=== PATIENT | female | born 1930 | race Caucasian/White ===

== ENCOUNTER → 2016-03-28 | Outpatient (CLI) | payer MEDICARE ==
[~2016-03-28] MED LIST: AMLO10TA PO; AMLO10TA82 PO; ASP325TEC PO; ASP81TEC PO; ATEN-158 PO; ATEN100T88 PO; DCS100C PO; ENXP40I.4 SC; GBPN600T PO; HYDR-623 PO; LOSA1TAB23 PO; MELO-195 PO; METF-380 PO; OXYC10TA8 PO; PHT5T PO
--- NOTE | 2016-03-29 19:02 | Diagnostic Imaging Report ---
Bilateral screening mammogram The current study was also evaluated with a Computer Aided Detection (CAD) system. INDICATION: Screening. No current complaints stated on the questionnaire. COMPARISON: 11/25/14. FINDINGS: The breasts are composed of scattered fibroglandular densities. There are scattered benign-appearing calcifications. Allowing for technique and positional differences, no suspicious change is seen. IMPRESSION: No significant change. ACR BI-RADS Category 2: Benign findings. Result letter will be mailed to the patient. Note: At least 10% of breast cancer is not imaged by mammography. Dictated by: Dictated on workstation # [id number]
== END ==
LOC: RAD 09:41
PROVIDERS: ATTEND Internal Medicine
DX: Z12.31 Encounter for screening mammogram for malignant neoplasm of breast (principal)
CPT/HCPCS: 77067

== ENCOUNTER → 2016-07-11 | Outpatient (CLI) | payer MEDICARE ==
[~2016-07-11] MED LIST changes: +CATHETER FLUSH 10 ML SYR IV PRN
== END ==
LOC: CARD 07:38
PROVIDERS: ATTEND Internal Medicine Cardiovascular Disease
DX: R94.31 Abnormal electrocardiogram [ECG] [EKG] (principal); I10 Essential (primary) hypertension; E78.2 Mixed hyperlipidemia

== ENCOUNTER → 2016-10-03 | Outpatient (CLI) | payer MEDICARE ==
[~2016-10-03] MED LIST changes: +REGADENOSON 0.4 MG/5 ML SYR (LEXISCAN) IV ONE
[2016-10-03 09:57] VITALS: BP 155/75
== END ==
LOC: CARD 08:07
PROVIDERS: ATTEND Internal Medicine Cardiovascular Disease
DX: R94.31 Abnormal electrocardiogram [ECG] [EKG] (principal); I10 Essential (primary) hypertension; E78.2 Mixed hyperlipidemia
CPT/HCPCS: 78452; 93017

== ENCOUNTER 2017-03-31 14:56 | Inpatient (IN) | payer MEDICARE ==
[~2017-03-31] VITALS: Ht 162.6 cm; Wt 75.8 kg
[2017-03-31] VITALS (11 sets, daily range): BP systolic 107–172; BP diastolic 64–104
[~2017-03-31 14:56] MED LIST changes: -CATHETER FLUSH 10 ML SYR IV PRN; -REGADENOSON 0.4 MG/5 ML SYR (LEXISCAN) IV ONE
[2017-03-31] MEDS ORDERED: ASPIRIN 81 MG CHEW (CHILDREN'S ASA) PO STA (15:06)
[2017-03-31] MEDS ORDERED: CLOPIDOGREL 300 MG (PLAVIX) TABLET PO STA (15:06)
--- NOTE | 2017-03-31 15:09 | ED Neurological Problem ---
General Stated Complaint: STROKE SYMPTOMS Source: patient, EMS Exam Limitations: clinical condition History of Present Illness Date Seen by Provider: Mar 31, 2017 Time Seen by Provider: 14:59 Initial Comments Patient presents to ER by EMS with a chief complaint of being found by her grandsons in bed with last known well time of 3-4 days ago. She has profound left sided body weakness and left facial droop. Patient was lying in her own bodily fluids but she is alert, oriented and answering questions appropriately. She denies a history of heart or stroke. She denies blood thinners. EMS reports they try to get an IV in her and could not en route. Vital signs were otherwise okay and blood sugar is 119 in the ER. Allergies and Home Medications Allergies Coded Allergies: Oxycodone (Verified Allergy, Unknown, 09/21/05) simvastatin (Verified Allergy, Unknown, ALLERGIC TO "STATINS", 09/18/05) Penicillins (Unverified Allergy, HIVES, 03/04/12) morphine (Unverified Allergy, HIVES, 03/04/12) sulfamethoxazole (Verified Adverse Reaction, NAUSEA, DIARRHEA, , 04/01/13) trimethoprim (Verified Adverse Reaction, NAUSEA, DIARRHEA, , 04/01/13) Uncoded Allergies: STATINS (Allergy, INCREASED LIVER ENZYMES, 03/04/12) Home Medications Aspirin 325 Mg Tabec, 325 MG PO BID WITH MEALS, #30 Prescribed by: MERCEDES AMOR on 04/09/13 1021 Atenolol 50 Mg Tab, 50 MG PO HS, #30 Prescribed by: MERCEDES AMOR on 04/09/13 1021 Docusate Sodium 100 Mg Capsule, 100 MG PO BID, #30 Prescribed by: MERCEDES AMOR on 04/09/13 1021 Gabapentin 600 Mg Tab, 600 MG PO TID, (Reported) Hydrocodone Bit/Acetaminophen 1 Tab Tablet, 1-2 EACH PO Q4H, #90 Prescribed by: MERCEDES AMOR on 04/09/13 1057 Metformin Hcl 1,000 Mg Tablet, 2 EACH PO HS, (Reported) Constitutional: see HPI (patient's having a difficult time giving a very diverse review of systems or history.), No chills, No diaphoresis Eyes: Denies Blindness, Denies Blurred Vision Ears, Nose, Mouth, Throat: denies ear pain, denies nose pain Respiratory: No cough, No short of breath Cardiovascular: No chest pain, No palpitations Gastrointestinal: No abdominal pain, No constipation, No diarrhea, No nausea Genitourinary: No discharge, No dysuria Past Txracyj-Tvggub-Kqugxk Hx Patient Social History Alcohol Use: Denies Use Immunizations Up To Date Tetanus Booster (TDap): Less than 5yrs Date of Pneumonia Vaccine: Mar 21, 2010 Date of Influenza Vaccine: Dec 20, 2011 Reproductive System Hx Reproductive Disorders: No Endocrine Endocrine Disorders: Diabetes, Non-Insulin dep HEENT HEENT Disorders: Cataract Loss of Vision: Denies Hearing Impairment: Denies Blood Transfusions Adverse Reaction to a Blood Tr: No Family Medical History Family Medial History: Cancer 09 BROTHER Family history: Cardiovascular disease 03 FATHER 03 MOTHER Family history: Diabetes mellitus 03 MOTHER 09 BROTHER Physical Exam Vital Signs Capillary Refill : General Appearance: WD/WN, no apparent distress HEENT: PERRL/EOMI (3 mm bilaterally), TMs normal, other (oral mucosa is dry) Neck: non-tender, full range of motion, supple, normal inspection Respiratory: chest non-tender, lungs clear, normal breath sounds, no respiratory distress, no accessory muscle use Cardiovascular: normal peripheral pulses, no edema, no JVD Peripheral Pulses: 2+ Dorsalis Pedis (R), 2+ Left Dors-Pedis (L), 2+ Radial Pulses (R), 2+ Radial Pulses (L) Gastrointestinal: normal bowel sounds, non tender, soft Neurologic/Psychiatric: oriented x 3, other (left facial droop as well as no motor function on left upper and lower extremities. Sensory intact 4 extremities.) Crainal Nerves: normal hearing, abnormal speech (slurred speech), facial asymmetry, facial droop (left), facial weakness Skin: normal color, warm/dry Stroke Onset of Symptoms Date of Onset of Symptoms: Mar 28, 2017 Onset of Symptoms: No Symptoms onset unknown: Yes NIH Stroke Scale Assessment Select: Initial Level of Consciousness: 0=Alert (0), Level of Consciousness- Questions: 0=Answers both month/age (0), LOC Commands: 0=Performs both tasks (0) , Gaze: Normal (0), Visual [place]: 2=Complete hemianopia (2), Facial Movement ( Facial Paresis): 2=Partial paralysis (2), Motor Function-Arms Right: 0=No drift (0), Motor Function-Arms Left: 4=No movement (4), Motor Function-Legs Right: 0= No drift (0), Motor Function-Legs Left: 4=No movement (4), Limb Ataxia: 2= Present in two limbs (2), Sensory: 0=Normal:no loss (0), Best Language: 1=Mild to moderat aphasia (1), Dysarthria: 1=Mild to moderate loss (1), Extinction & Inattention: 2=ProfoundHemiInattention (2), Total: 18 Stroke Thrombolytic Exclusion Age 18 or Over: Yes Acute intenal hemorrhage: No History of CVA: No Uncontrolled Coagulation Defec: No Intracranial Hemorrhage: No Severe Hypertension: No GI or Bleed: No Subarachnoid Hemorrhage: No Intracranial Neoplasm/Aneurysm: No Oral Anticoagulants: No Surgery or Trauma: No Puncture of Non-Compressible V: No Recent CPR: No Diabetic Hemorrhagic Retinopat: No Organ Biopsy: No Recent Obstetric Delivery: No Glucose: No Significant Hepatic Dysfunctio: No NIH Stoke Scale >22: No Bacterial Endocarditis: No Pericarditis: No Improving Symptoms: No Platelets: No TPA Contraindication: Yes IV - TPa Received IV - TPa Procedure Performed?: No Progress/Results/Core Measures Results/Orders Lab Results Laboratory Tests Test 03/31/17 15:07 03/31/17 15:09 03/31/17 15:19 Range/Units Glucometer 119 H 70-110 MG/DL White Blood Count 8.5 4.3-11.0 10^3/uL Red Blood Count 3.61 L 4.35-5.85 10^6/uL Hemoglobin 9.8 L 11.5-16.0 G/DL Hematocrit 30 L 35-52 % Mean Corpuscular Volume 83 80-99 FL Mean Corpuscular Hemoglobin 27 25-34 PG Mean Corpuscular Hemoglobin Concent 33 32-36 G/DL Red Cell Distribution Width 16.4 H 10.0-14.5 % Platelet Count 322 130-400 10^3/uL Mean Platelet Volume 9.6 7.4-10.4 FL Neutrophils (%) (Auto) 70 42-75 % Lymphocytes (%) (Auto) 20 12-44 % Monocytes (%) (Auto) 10 0-12 % Eosinophils (%) (Auto) 0 0-10 % Basophils (%) (Auto) 1 0-10 % Neutrophils # (Auto) 5.9 1.8-7.8 X 10^3 Lymphocytes # (Auto) 1.7 1.0-4.0 X 10^3 Monocytes # (Auto) 0.8 0.0-1.0 X 10^3 Eosinophils # (Auto) 0.0 0.0-0.3 10^3/uL Basophils # (Auto) 0.0 0.0-0.1 10^3/uL Prothrombin Time 12.9 12.2-14.7 SEC INR Comment 1.0 0.8-1.4 Activated Partial Thromboplast Time 29 24-35 SEC D-Dimer 2.84 H 0.00-0.49 UG/ML Sodium Level 131 L 135-145 MMOL/L Potassium Level 4.9 3.6-5.0 MMOL/L Chloride Level 100 98-107 MMOL/L Carbon Dioxide Level 18 L 21-32 MMOL/L Anion Gap 13 5-14 MMOL/L Blood Urea Nitrogen 16 7-18 MG/DL Creatinine 0.76 0.60-1.30 MG/DL Estimat Glomerular Filtration Rate > 60 BUN/Creatinine Ratio 21 Glucose Level 118 H 70-105 MG/DL Calcium Level 9.4 8.5-10.1 MG/DL Total Bilirubin 0.5 0.1-1.0 MG/DL Aspartate Amino Transf (AST/SGOT) 74 H 5-34 U/L Alanine Aminotransferase (ALT/SGPT) 57 H 0-55 U/L Alkaline Phosphatase 155 H 40-136 U/L Troponin I < 0.30 <0.30 NG/ML Total Protein 9.3 H 6.4-8.2 GM/DL Albumin 3.4 3.2-4.5 GM/DL Urine Color YELLOW Urine Clarity CLEAR Urine pH 7 5-9 Urine Specific [place] 1.010 L 1.016-1.022 Urine Protein 2+ H NEGATIVE Urine Glucose (UA) NEGATIVE NEGATIVE Urine Ketones 3+ H NEGATIVE Urine Nitrite NEGATIVE NEGATIVE Urine Bilirubin NEGATIVE NEGATIVE Urine Urobilinogen NORMAL NORMAL MG/DL Urine Leukocyte Esterase 1+ H NEGATIVE Urine RBC (Auto) 1+ H NEGATIVE Urine RBC 2-5 H /HPF Urine WBC 2-5 /HPF Urine Squamous Epithelial Cells 10-25 H /HPF Urine Crystals NONE /LPF Urine Bacteria NEGATIVE /HPF Urine Casts NONE /LPF Urine Mucus NEGATIVE /LPF Urine Culture Indicated NO My Orders Orders - OSCAR TRUJILLO Cbc With Automated Diff (03/31/17 15:06) Protime With Inr (03/31/17 15:06) Partial Thromboplastin Time (03/31/17 15:06) Comprehensive Metabolic Panel (03/31/17 15:06) Fibrin Degradation Products (03/31/17 15:06) Troponin I (03/31/17 15:06) Ua Culture If Indicated (03/31/17 15:06) Chest 1 View, Ap/Pa Only (03/31/17 15:06) Catheter(Urinary) Insert & Ass 03,15 (03/31/17 15:06) Ekg Tracing (03/31/17 15:06) Nothing By Mouth (03/31/17 Dinner) Accucheck Stat ONCE (03/31/17 15:06) Saline Lock/Iv-Start (03/31/17 15:06) Saline Lock/Iv-Start (03/31/17 15:06) Vital Signs - Stroke Q15M (03/31/17 15:06) Ct Head Wo-R/O Stroke (03/31/17 15:06) O2 (03/31/17 15:06) Intake & Output 06,14,22 (03/31/17 15:06) Aspirin Chewable Tablet (Baby Aspirin Ch (03/31/17 15:06) Clopidogrel Tablet (Plavix Tablet) (03/31/17 15:06) Monitor-Rhythm Ecg Trace Only (03/31/17 15:06) Dysphagia Screening Tool (03/31/17 15:06) Progress Note : Time: 15:27 Progress Note Stroke outside the window for TPA. ECG Initial ECG Impression Date: Mar 31, 2017 Initial ECG Impression Time: 15:10 Initial ECG Rate: 83 Initial ECG Rhythm: Normal Sinus Initial ECG Intervals: Normal Initial ECG Impression: Normal, Nonspecific Changes Initial ECG Comparisson: No Previous ECG Available Comment No T-wave elevation or depression. Diagnostic Imaging Diagonstic Imaging: CT Plain Films/CT/US/NM/MRI: head Comments VIA [facility]. [place], [place] NAME: LATANYA MILLARD Demetrius MED REC#: [id number] PT STATUS: REG ER : 1930 PHYSICIAN: OSCAR TRUJILLO MD ADMIT DATE: 03/31/17/ER Draft Date of Exam:03/31/17 CT HEAD WO-R/O STROKE EXAM: CT HEAD WO-R/O STROKE INDICATION: Stroke. Left-sided weakness. COMPARISON: None. FINDINGS: Low-attenuation in the right thalamus and midbrain. No intracranial hemorrhage. No hydrocephalus or extra-axial fluid collections. Osseous structures are intact. The visualized paranasal sinuses and mastoids are clear. IMPRESSION: Low-attenuation in the right thalamus and midbrain suspicious for an acute or subacute infarct. No intracranial hemorrhage. Findings discussed with ARA Dumas at 4:15 PM on 03/31/2017. Dictated on workstation # [id number] Dict: 03/31/17 1609 Trans: 03/31/171615 [id number] Interpreted by: MARCIAL PATEL MD Electronically signed by: Reviewed: Reviewed by Me Diagonstic Imaging: Xray Plain Films/CT/US/NM/MRI: chest (1v) Comments NAME: LATANYA MILLARD MED REC#: [id number] PT STATUS: REG ER : 1930 PHYSICIAN: OSCAR TRUJILLO MD ADMIT DATE: 03/31/17/ER Draft Date of Exam:03/31/17 CHEST 1 VIEW, AP/PA ONLY EXAM: CHEST 1 VIEW, AP/PA ONLY INDICATION: Left-sided weakness. COMPARISON: Chest radiograph 07/09/2013. FINDINGS: Normal heart size and pulmonary vascularity. No dense consolidation, pleural effusion or pneumothorax. Calcified aorta. No acute osseous findings. IMPRESSION: No acute cardiopulmonary findings. Dictated on workstation # [id number] Dict: 03/31/17 1615 Trans: 03/31/17 1617 [id number] Interpreted by: MARCIAL PATEL MD Electronically signed by: Reviewed: Reviewed by Me Consults Consults : Consults Notes [facility] neurology: Outside TPA window. Watch for evidence of swelling or midline shift. Departure Communication (Admissions) Time/Spoke to Admitting Phy: 16:40 Communication Discussed case lab imaging findings with Dr. Alba as well as neurology's recommendations. Impression Impression: Primary Impression: CVA (cerebral vascular accident) Qualified Codes: I63.9 - Cerebral infarction, unspecified Disposition: ADMITTED INPATIENT Condition: Stable Admissions Decision to Admit Reason: Admit from ER (General) Decision to Admit/Date: Mar 31, 2017 Time/Decision to Admit Time: 16:33 Departure-Patient Inst. Referrals: JANETT GU MD (PCP/Family) Primary Care Physician Copy Copies To 1: JANETT GU MD, TITUS J Mar 31, 2017 15:09
[2017-03-31 15:16] LABS: BASOPHILS % (AUTO) 1 % (0-10); EOSINOPHILS % (AUTO) 0 % (0-10); HEMATOCRIT 30 % (35-52); HEMOGLOBIN 9.8 G/DL (11.5-16.0); LYMPHOCYTES # (AUTO) 1.7 X 10^3 (1.0-4.0); LYMPHOCYTES % (AUTO) 20 % (12-44); MEAN CORPUSCULAR HEMOGLOBIN 27 PG (25-34); MEAN CORPUSCULAR HGB CONC 33 G/DL (32-36); MEAN CORPUSCULAR VOLUME 83 FL (80-99); MEAN PLATELET VOLUME 9.6 FL (7.4-10.4); MONOCYTES # (AUTO) 0.8 X 10^3 (0.0-1.0); MONOCYTES % (AUTO) 10 % (0-12); NEUTROPHILS # (AUTO) 5.9 X 10^3 (1.8-7.8); NEUTROPHILS % (AUTO) 70 % (42-75); PLATELET COUNT 322 10^3/uL (130-400); RED BLOOD COUNT 3.61 10^6/uL (4.35-5.85); RED CELL DISTRIBUTION WIDTH 16.4 % (10.0-14.5); WHITE BLOOD COUNT 8.5 10^3/uL (4.3-11.0)
[2017-03-31 15:26] LABS: BILIRUBIN,URINE NEGATIVE (NEGATIVE); CLARITY,URINE CLEAR; COLOR,URINE YELLOW; GLUCOSE, URINE (UA) NEGATIVE (NEGATIVE); KETONES,URINE 3+ (NEGATIVE); LEUKOCYTE ESTERASE ,URINE 1+ (NEGATIVE); NITRITE,URINE NEGATIVE (NEGATIVE); PH,URINE 7 (5-9); PROTEIN,URINE 2+ (NEGATIVE); UROBILINOGEN,URINE NORMAL (NORMAL)
[2017-03-31 15:26] LABS: PROTHROMBIN TIME PATIENT 12.9 SEC (12.2-14.7)
[2017-03-31 15:29] LABS: FIBRIN DEGRADATION PRODUCTS 2.84 UG/ML (0.00-0.49)
[2017-03-31 15:33] LABS: BACTERIA,URINE NEGATIVE /HPF
[2017-03-31 15:36] LABS: ALANINE AMINOTRANSFERASE 57 U/L (0-55); ALBUMIN 3.4 GM/DL (3.2-4.5); ALKALINE PHOSPHATASE 155 U/L (40-136); BILIRUBIN,TOTAL 0.5 MG/DL (0.1-1.0); BUN/CREATININE RATIO 21; CALCIUM 9.4 MG/DL (8.5-10.1); CARBON DIOXIDE 18 MMOL/L (21-32); CHLORIDE 100 MMOL/L (98-107); CREATININE SERUM 0.76 MG/DL (0.60-1.30); GFR ESTIMATED > 60; GLUCOSE 118 MG/DL (70-105); POTASSIUM 4.9 MMOL/L (3.6-5.0); SODIUM 131 MMOL/L (135-145); TOTAL PROTEIN 9.3 GM/DL (6.4-8.2)
--- NOTE | 2017-03-31 16:17 | Diagnostic Imaging Report ---
EXAM: CT HEAD WO-R/O STROKE INDICATION: Stroke. Left-sided weakness. COMPARISON: None. FINDINGS: Low-attenuation in the right thalamus and midbrain. No intracranial hemorrhage. No hydrocephalus or extra-axial fluid collections. Osseous structures are intact. The visualized paranasal sinuses and mastoids are clear. IMPRESSION: Low-attenuation in the right thalamus and midbrain suspicious for an acute or subacute infarct. No intracranial hemorrhage. Findings discussed with ARA Dumas at 4:15 PM on 03/31/2017. Dictated by: Dictated on workstation # [id number]
--- NOTE | 2017-03-31 16:18 | Diagnostic Imaging Report ---
EXAM: CHEST 1 VIEW, AP/PA ONLY INDICATION: Left-sided weakness. COMPARISON: Chest radiograph 07/09/2013. FINDINGS: Normal heart size and pulmonary vascularity. No dense consolidation, pleural effusion or pneumothorax. Calcified aorta. No acute osseous findings. IMPRESSION: No acute cardiopulmonary findings. Dictated by: Dictated on workstation # [id number]
[2017-03-31] MEDS ORDERED: LACTATED RINGERS 1,000 ML IV ONE (16:42)
[2017-03-31] MEDS: LACTATED RINGERS 1,000 ML IV SCH (17:42)
[2017-03-31] MEDS ORDERED: 1/2 NS W/KCL 20 MEQ/L 1,000 ML IV ONE (20:46)
[2017-03-31] MEDS ORDERED: ACETAMINOPHEN 500 MG TAB (TYLENOL) PO PRN (21:30)
[2017-03-31] MEDS ORDERED: ONDANSETRON 4 MG/2 ML (SDV) Z0FRAN IV PRN (21:30)
[2017-03-31] MEDS: 1/2 NS W/KCL 20 MEQ/L 1,000 ML IV SCH (22:20)
[2017-04-01] VITALS (29 sets, daily range): BP systolic 139–174; BP diastolic 65–86
[2017-04-01] MEDS: 1/2 NS W/KCL 20 MEQ/L 1,000 ML IV SCH ×2 (03:21→10:14)
--- NOTE | 2017-04-01 04:48 | Pulmonary Consultation ---
History of Present Illness History of Present Illness Date of Consultation 04/01/17 04:43 Time Seen by Provider: 04:43 Date of Admission History of Present Illness 86yo presented via EMS after being found in her bed in her own bodily fluids. pt was alert and answering questions. Her last known well time was 3-4 days ago. She was found to have weakness and left facial droop. Allergies and Home Medications Allergies Coded Allergies: Penicillins (Unverified Allergy, Unknown, HIVES, 03/31/17) morphine (Unverified Allergy, Unknown, HIVES, 03/31/17) oxycodone (Verified Allergy, Unknown, 09/21/05) simvastatin (Verified Allergy, Unknown, ALLERGIC TO "STATINS", 09/18/05) sulfamethoxazole (Verified Adverse Reaction, Unknown, NAUSEA, DIARRHEA, , 03/31/17) trimethoprim (Verified Adverse Reaction, Unknown, NAUSEA, DIARRHEA, , 03/31) Uncoded Allergies: STATINS (Allergy, Unknown, INCREASED LIVER ENZYMES, 03/31/17) Home Medications Amlodipine Besylate 10 Mg Tablet, 10 MG PO DAILY, (Reported) Aspirin 81 Mg Tablet.dr, 81 MG PO DAILY, (Reported) Gabapentin 300 Mg Capsule, 600 MG PO BID, (Reported) TAKES 2 (300MG) CAPSULES Losartan Potassium 100 Mg Tablet, 100 MG PO DAILY, (Reported) Meloxicam 15 Mg Tablet, 15 MG PO DAILY, (Reported) Metformin HCl 1,000 Mg Tablet, 1,000 MG PO DAILY, (Reported) Nebivolol HCl 5 Mg Tablet, 5 MG PO HS, (Reported) Polyethylene Glycol 3350 17 Gm Powd.pack, 17 GM PO DAILY PRN for CONSTIPATION- 2ND LINE, (Reported) Past Cidpsxq-Wdydry-Vbdiru Hx Patient Social History Alcohol Use: Denies Use Recreational Drug Use: No Smoking Status: Former Smoker Type Used: Cigarettes Former Smoker, Quit: Apr 01, 1976 Recent Foreign Travel: No Contact w/Someone Who Travel: No Recent Infectious Disease Expo: No Recent Hopitalizations: Yes (BACK SURG) Immunizations Up To Date Tetanus Booster (TDap): Less than 5yrs Date of Influenza Vaccine: Dec 20, 2011 Seasonal Allergies Seasonal Allergies: No Surgeries History of Surgeries: Yes (CATARACTS, CARPAL TUNNEL, BACK SURG X2, FX ANKLE) Respiratory History of Respiratory Disorde: No Cardiovascular History of Cardiac Disorders: Yes Neurological History of Neurological Disord: Yes Reproductive System : No Hx Reproductive Disorders: No Genitourinary History of Genitourinary Disor: No Gastrointestinal History of Gastrointestinal Di: No Musculoskeletal History of Musculoskeletal Dis: Yes (ARTHRITIS, SPINAL STENOSIS, FAILED LEFT KNEE REPLACEMENT) Endocrine History of Endocrine Disorders: Yes Endocrine Disorders: Diabetes, Non-Insulin dep HEENT History of HEENT Disorders: Yes HEENT Disorders: Cataract Loss of Vision: Denies Hearing Impairment: Denies Cancer History of Cancer: No Psychosocial History of Psychiatric Problem: No Integumentary History of Skin or Integumenta: No Blood Transfusions History of Blood Disorders: No Adverse Reaction to a Blood Tr: No Family Medical History Family Medial History: Cancer 09 BROTHER Family history: Cardiovascular disease 03 FATHER 03 MOTHER Family history: Diabetes mellitus 03 MOTHER 09 BROTHER Review of Systems Time Seen by Provider: 08:27 Constitutional: Sweats, Weakness, Malaise ENT: Nose discharge, Nose congestion, No: Ear pain, Ear discharge, Nose pain, Mouth pain, Mouth swelling, Throat pain, Throat swelling, Other Respiratory: Cough, Shortness of breath, SOB with excertion, Wheezing, Sputum Cardiovascular: Chest Pain, Palpitations, Paroxysmal Noc. Dyspnea, Lt Headedness Gastrointestinal: No: Nausea, Vomiting, Abdominal Pain, Diarrhea, Constipation , Melena, Hematochezia, Other Neurological: Weakness, Incoordination Exam Exam Vital Signs Date Time Temp Pulse Resp B/P (MAP) Pulse Ox O2 Delivery O2 Flow Rate FiO2 04/01/17 03:00 90 21 174/74 (107) 98 Room Air 04/01/17 02:00 85 24 165/82 (109) 99 Room Air 04/01/17 01:00 86 23 164/65 (98) 97 Room Air 04/01/17 01:00 86 04/01/17 00:00 97 Room Air 04/01/17 00:00 100 22 153/68 (96) 97 Room Air 03/31/17 23:00 91 22 138/64 (88) 97 Room Air 03/31/17 22:00 101 24 136/85 (102) 97 Room Air 03/31/17 21:00 87 22 169/86 (113) 97 Room Air 03/31/17 20:30 80 17 167/77 (107) 97 Room Air 03/31/17 20:15 80 15 172/75 (107) 97 Room Air 03/31/17 20:00 89 15 154/72 (99) 98 Room Air 03/31/17 19:53 92 03/31/17 19:53 98.0 92 27 153/104 (120) 98 Room Air 03/31/17 19:45 97 Room Air 03/31/17 19:36 98.0 87 22 98 Nasal Cannula 2.00 03/31/17 18:43 74 18 162/80 (107) 99 Nasal Cannula 2.00 03/31/17 18:00 84 18 169/ 95 Nasal Cannula 2.00 03/31/17 17:27 83 18 159/88 (111) 96 Nasal Cannula 2.00 03/31/17 16:31 76 18 107/74 (85) 99 Nasal Cannula 2.00 03/31/17 14:56 Room Air 2.00 03/31/17 14:56 97.8 90 18 152/77 (102) 98 I & O 04/01/17 07:00 Intake Total 2000 ml Output Total 575 ml Balance 1425 ml General Appearance: Anxious, Mild Distress HEENT: Moist Mucous Membranes Neck: Full Range of Motion, Normal Inspection, Non Tender Respiratory: Chest Non Tender, No Accessory Muscle Use, No Respiratory Distress , Decreased Breath Sounds Cardiovascular: Regular Rate, Rhythm, No Edema Capillary Refill: Less Than 3 Seconds Peripheral Pulses: 2+ Dorsalis Pedis (R), 2+ Left Dors-Pedis (L), 2+ Radial Pulses (R), 2+ Radial Pulses (L) Gastrointestinal: normal bowel sounds, non tender, soft Extremity: Normal Capillary Refill Neurologic/Psychiatric: Alert, Oriented x3 Skin: Normal Color, Warm/Dry Lymphatic: No Adenopathy Results Lab Laboratory Tests 03/31/17 15:09 Assessment/Plan Assessment/Plan Acute CVA -Hold plavix -Check Echo and carotid dopplers -Pt failed swallow eval -NPO - start Protonix IV for PPX Acute lower GIB -Consult surgery -H&H Q6 -Monitor close -IVF Hyponatremia -Change IVF to NS Debility -PT/OT -pt was living alone she will probably need ECF upon discharge. Labs still pending 255 Clinical Quality Measures DVT/VTE Risk/Contraindication: Risk Factor Score Per Nursin RFS Level Per Nursing on Admit: 4+=Very High Stroke: Date of last known well: Mar 28, 2017 Symptoms onset unknown: Yes DONATO SHEPARD DO Apr 01, 2017 04:48
[2017-04-01] MEDS ORDERED: NS IV 1000 ML 1,000 ML ONE (04:53)
[2017-04-01 05:36] LABS: BASOPHILS % (AUTO) 0 % (0-10); EOSINOPHILS % (AUTO) 0 % (0-10); HEMATOCRIT 21 % (35-52); LYMPHOCYTES # (AUTO) 2.1 X 10^3 (1.0-4.0); LYMPHOCYTES % (AUTO) 19 % (12-44); MEAN CORPUSCULAR HEMOGLOBIN 27 PG (25-34); MEAN CORPUSCULAR HGB CONC 32 G/DL (32-36); MEAN CORPUSCULAR VOLUME 84 FL (80-99); MEAN PLATELET VOLUME 9.9 FL (7.4-10.4); MONOCYTES % (AUTO) 9 % (0-12); NEUTROPHILS % (AUTO) 72 % (42-75); PLATELET COUNT 349 10^3/uL (130-400); RED CELL DISTRIBUTION WIDTH 16.1 % (10.0-14.5); WHITE BLOOD COUNT 11.1 10^3/uL (4.3-11.0)
[2017-04-01 05:39] LABS: HEMOGLOBIN 6.7 G/DL (11.5-16.0)
[2017-04-01 05:57] LABS: BUN/CREATININE RATIO 53; CALCIUM 8.5 MG/DL (8.5-10.1); CARBON DIOXIDE 18 MMOL/L (21-32); CHLORIDE 105 MMOL/L (98-107); CHOLESTEROL 201 MG/DL (< 200); CREATININE SERUM 0.74 MG/DL (0.60-1.30); GFR ESTIMATED > 60; GLUCOSE 133 MG/DL (70-105); HDL CHOLESTEROL 34 MG/DL (40-60); MAGNESIUM 1.5 MG/DL (1.8-2.4); PHOSPHORUS 2.6 MG/DL (2.3-4.7); POTASSIUM 4.8 MMOL/L (3.6-5.0); SODIUM 132 MMOL/L (135-145); TRIGLYCERIDES 138 MG/DL (<150); VLDL CHOLESTEROL 28 MG/DL (5-40)
[2017-04-01] MEDS: KCL 20 MEQ TAB (K-DUR) PO SCH (06:06)
[2017-04-01] MEDS: POTASSIUM CL 10MEQ/50ML IVPB 50 ML IV SCH (06:06)
[2017-04-01] MEDS: MAGNESIUM 1 GM/100 ML IVPB 100 ML IV SCH ×3 (06:07→06:19)
[2017-04-01] MEDS: NS IV 1000 ML 1,000 ML IV SCH ×3 (06:14→22:29)
--- NOTE | 2017-04-01 07:35 | Diagnostic Imaging Report ---
INDICATION: Cerebrovascular accident. COMPARISON: 03/31/2017. FINDINGS: Single frontal view of the chest demonstrates normal heart size and pulmonary vascularity. The lungs are well aerated and clear. No large pleural effusion or pneumothorax is seen. The visualized osseous structures show no acute abnormalities. There is calcified aortic atherosclerosis. IMPRESSION: 1. No acute cardiopulmonary process. Dictated by: Dictated on workstation # [id number]
[2017-04-01] MEDS ORDERED: AMLO10TA2 PO (07:52)
[2017-04-01] MEDS ORDERED: GABA-488 PO (07:52)
[2017-04-01] MEDS ORDERED: NEBI5TAB8 PO (07:52)
[2017-04-01] MEDS ORDERED: MELO15TA39 PO (07:52)
[2017-04-01] MEDS ORDERED: LOSA100T28 PO (07:52)
[2017-04-01] MEDS ORDERED: NS IV 500 ML 500 ML ONE (08:18)
[2017-04-01] MEDS ORDERED: POLY17PO6 PO (08:23)
[2017-04-01] MEDS ORDERED: METF1000 PO (08:23)
[2017-04-01] MEDS ORDERED: ASPI-983 PO (08:23)
[2017-04-01] MEDS ORDERED: ASPIRIN 325 MG (5 GR) TABLET PO SCH (09:00)
[2017-04-01] MEDS: PANTOPRAZOLE 40 MG/10 ML (PROTONIX) VIAL IV SCH (10:08)
--- NOTE | 2017-04-01 10:14 | ST Dysphagia Evaluation ---
Speech Evaluation-General Medical Diagnosis R Thalamus and Midbrain CVA Onset Date: Mar 31, 2017 Therapy Diagnosis Therapy Diagnosis: Moderate Oropharyngeal Dysphagia Precautions Precautions: Aspiration Precautions/Isolations: Standard Precautions Referral Referring Physician: Dr. Cate Maravilla Reason for Referral: Evaluation/Treatment Clinical Bedside Swallowing Evaluation Medical History Pertinent Medical History: DM Current History The patient presented to the ER on 03/31/17 with slurring of her speech and a left facial droop. CT Head (04/01/17) revealed low attenuation in the right thalamus and midbrain suspicious for acute or subacute infarct. CXR (04/01): No acute cardiopulmonary process. Reviewed History: Yes Speech PLF/Current-Dysphagia Prior Level of Function The patient was unable to provide prior level of function information to the clinician. Subjective The patient was seated upright in bed, positioned by the clinician prior to bolus trials. The patient intermittently made eye contact, however, demonstrated mostly right gaze. Prior to bolus trials, the patient's SpO2% fluctuated between 93% and 95%. Per patient's RN, the patient appears fatigue secondary to being restless through a majority of the evening. Cognitive Status The patient was unable to state orientation information to the clinician. The patient did make eye contact when her name was spoken. Oral Motor Skills Dentition: Edentalous Ability to Follow Directions: Fair The patient is currently NPO pending the results of the swallowing evaluation. Oral Expression Ability: Severe Impairment Face Facial Symmetry: Asymmetrical (Left Facial Droop) Oral-Facial Assessment Oral-Facial Dentition: Normal Labial Seal Description: Droops Left Smile: Droops Left Puff Cheeks: Reduced Strength (Left) Lingual Protrusion: Abnormal (Limited lingual protrusion.) Lingual ROM: Abnormal (Moderately reduced lateral range of motion was demonstrated.) Lingual Strength: Abnormal (Moderately reduced lingual strength was noted bilaterally.) Pharynx Velopharyngeal Move.: Due to limited jaw opening, the clinician was unable to view the patient's velar range of motion or symmetry. Volitional Dry Swallow: No Voluntary Cough: No Dysphagia Evaluation Consistencies Presented: Thin Liquid, [place] Thick Liquid, Pureed Oral Phase: Anterior Spillage (Mild anterior spillage was noted on the right with teaspoon trials of thin liquid.), Left Pocketing (While left pocketing was not observed during the evaluation, the patient is at high risk for this behavior due to reduced left facial sensation.), Unable to Suck Straw (At the initiation of the session, the patient was unable to suck throughout a straw, blowing bubbles into the water when presented. At the close of the session, the patient was able to draw liquids through the straw.) Pharyngeal Phase: Multiple Swallow Attempts, Delayed Swallow - The patient required consistent oral prompting for initiation of a pharyngeal swallow response with all consistencies tested. Funct. Velo/Pharyngeal Symptom: Cough After Swallow - The patient took a fair amount of verbal encouragement and prompting to participate in the swallow evaluation. The patient's SpO2% remained stable throughout the assessment. - Thin Liquid (via teaspoon): The patient demonstrated a delayed cough following three of three teaspoon trials of thin liquid. - [place]-Thick Liquid (via teaspoon and straw): No signs/symptoms of aspiration were demonstrated with multiple teaspoon trials of nectar-thick liquid via teaspoon or straw sip. - Puree: No signs/symptoms of aspiration were demonstrated with multiple teaspoon trials of puree consistency. Throughout all trials, the patient required verbal encouragement to initiate a swallow response. While no left pocketing was noted throughout the assessment, the patient remains at a high risk for this behavior due to her reduced left facial sensation. Due to the verbal prompts intermittently required to elicit a swallow, the patient's reduced ability to use her left upper body, and her risk for pocketing- 1:1 feeding assistance is recommended. Dietary Recommendations: Pureed Liquid Recommendations: [place] Consistancy Crush medication and place in puree for administration. Swallowing Precautions: Decreased Bolus 1/4 Tsp, Oral Supervision Staff, Oral Supervision Caregiver, Pocketing, Small Bites and Sips, Sitting 90 Degrees 30 Post Intake Speech Short Term Goals Short Term Goals Short Term Goals 1. The patient will tolerate trials of the least restrictive diet without signs/ symptoms of aspiration or laryngeal penetration. 2. The patient will demonstrate swallowing strategies with 80% accuracy with moderate clinician verbal prompting. Time Frame-STG: Four Days Speech Resident Care Technician Goals Resident Care Technician Goals 1. The patient will tolerate the least restrictive diet without signs/symptoms of aspiration or laryngeal penetration. Time Frame: One Week Speech-Plan Treatment Plan Speech Therapy Treatment Plan: Continue Plan of Care Continue skilled speech pathology to target swallowing safety and consistent use of swallowing strategies Treatment Duration: Apr 08, 2017 Frequency: 3 times per week Estimated Hrs Per Day: .25 hour per day Rehab Potential: Guarded Safety Risks/Education Teaching Recipient: Patient, Family (Patient's son.) Teaching Methods: Handout (Written on in-room white board.), Discussion Response to Teaching: Verbalize Understanding (Son and RN) Education Topics Provided: Swallowing Strategies, Consistency Recommendations, Plan of Care Time Speech Therapy Time In: 08:15 Speech Therapy Time Out: 08:45 Total Billed Time: 30 Billed Treatment Time 1, MARIA ELENA BLACK Apr 01, 2017 10:14
[2017-04-01] MEDS: LACTATED RINGERS 1,000 ML IV SCH (10:15)
--- NOTE | 2017-04-01 14:13 | Consultation ---
History of Present Illness History of Present Illness Patient Consulted On(dejon/time) 04/01/17 13:55 Time Seen by Provider: 13:11 History of Present Illness Surgery asked to consult regarding GI bleed. HPI: Pt was found lying in bed at home in her own body fluids, obvious signs of stroke; unknown time of stroke. Pt is self suficienct at home and last time someone actually checked in on her was 3-4 days prior to finding her on Saturday. Events of last night; pt had large amount of maroon and melanotic stool with clots (according to nurse). When talked to today pt seems able to answer questions but does not really remember what happened. She denies hx of colonoscopy and denies any previous episodes of bleeding. Pt denies abd pain at this time. Allergies and Home Medications Allergies Coded Allergies: Penicillins (Unverified Allergy, Unknown, HIVES, 03/31/17) morphine (Unverified Allergy, Unknown, HIVES, 03/31/17) oxycodone (Verified Allergy, Unknown, 09/21/05) simvastatin (Verified Allergy, Unknown, ALLERGIC TO "STATINS", 09/18/05) sulfamethoxazole (Verified Adverse Reaction, Unknown, NAUSEA, DIARRHEA, , 03/31/17) trimethoprim (Verified Adverse Reaction, Unknown, NAUSEA, DIARRHEA, , 03/31) Uncoded Allergies: STATINS (Allergy, Unknown, INCREASED LIVER ENZYMES, 03/31/17) Home Medications Amlodipine Besylate 10 Mg Tablet, 10 MG PO DAILY, (Reported) Aspirin 81 Mg Tablet.dr, 81 MG PO DAILY, (Reported) Gabapentin 300 Mg Capsule, 600 MG PO BID, (Reported) TAKES 2 (300MG) CAPSULES Losartan Potassium 100 Mg Tablet, 100 MG PO DAILY, (Reported) Meloxicam 15 Mg Tablet, 15 MG PO DAILY, (Reported) Metformin HCl 1,000 Mg Tablet, 1,000 MG PO DAILY, (Reported) Nebivolol HCl 5 Mg Tablet, 5 MG PO HS, (Reported) Polyethylene Glycol 3350 17 Gm Powd.pack, 17 GM PO DAILY PRN for CONSTIPATION- 2ND LINE, (Reported) Past Iioixgr-[id number]-Uthfsz Hx Patient Social History Alcohol Use: Denies Use Recreational Drug Use: No Smoking Status: Former Smoker Former Smoker, Quit: Apr 01, 1976 Type Used: Cigarettes Recent Foreign Travel: No Contact w/Someone Who Travel: No Recent Infectious Disease Expo: No Recent Hopitalizations: Yes (BACK SURG) Physical Abuse Screen: No Sexual Abuse: No Immunizations Up To Date Tetanus Booster (TDap): Less than 5yrs Date of Influenza Vaccine: Dec 20, 2011 Seasonal Allergies Seasonal Allergies: No Surgeries History of Surgeries: Yes (CATARACTS, CARPAL TUNNEL, BACK SURG X2, FX ANKLE) Respiratory History of Respiratory Disorde: No Cardiovascular History of Cardiac Disorders: Yes Neurological History of Neurological Disord: Yes Reproductive System : No Hx Reproductive Disorders: No Genitourinary History of Genitourinary Disor: No Gastrointestinal History of Gastrointestinal Di: No Musculoskeletal History of Musculoskeletal Dis: Yes (ARTHRITIS, SPINAL STENOSIS, FAILED LEFT KNEE REPLACEMENT) Endocrine History of Endocrine Disorders: Yes Endocrine Disorders: Diabetes, Non-Insulin dep HEENT History of HEENT Disorders: Yes HEENT Disorders: Cataract Loss of Vision: Denies Hearing Impairment: Denies Cancer History of Cancer: No Psychosocial History of Psychiatric Problem: No Integumentary History of Skin or Integumenta: No Blood Transfusions History of Blood Disorders: No Adverse Reaction to a Blood Tr: No Family Medical History Significant Family History: Cancer, CAD Over 55 Years Old Family Medial History: Cancer 09 BROTHER Family history: Cardiovascular disease 03 FATHER 03 MOTHER Family history: Diabetes mellitus 03 MOTHER 09 BROTHER Review of Systems-General ROS-Unable to Obtain: Pt doesn't remember, not really answering questions Physical Exam-General Problems Physical Exam Vital Signs Vital Signs - First Documented 03/31/17 14:56 Temp 97.8 Pulse 90 Resp 18 B/P (MAP) 152/77 (102) Pulse Ox 98 O2 Delivery Room Air O2 Flow Rate 2.00 Capillary Refill : Less Than 3 Seconds General Appearance: WD/WN, no apparent distress Eyes: Bilateral Eye PERRL, Bilateral Eye EOMI HEENT: No scleral icterus (R), No scleral icterus (L), pale conjunctivae (R), pale conjunctivae (L) Neck: non-tender, supple, No thyromegaly Respiratory: chest non-tender, lungs clear, normal breath sounds, no respiratory distress, no accessory muscle use Cardiovascular: regular rate, rhythm, no edema, no murmur Gastrointestinal: normal bowel sounds, non tender, soft, no organomegaly, no pulsatile mass Genital/Rectal: heme positive stool Back: no CVA tenderness, no vertebral tenderness Extremities: no calf tenderness, normal capillary refill, other (pt cannot move left side of her body) Neurologic/Psychiatric: alert, oriented x 3, facial droop, motor weakness Skin: normal color, warm/dry Lymphatic: no adenopathy (neck, axilla or groin) Data Review Labs Laboratory Tests 03/31/17 15:07: Glucometer 119H 03/31/17 15:09: White Blood Count 8.5, Red Blood Count 3.61L, Hemoglobin 9.8L, Hematocrit 30L, Mean Corpuscular Volume 83, Mean Corpuscular Hemoglobin 27, Mean Corpuscular Hemoglobin Concent 33, Red Cell Distribution Width 16.4H, Platelet Count 322, Mean Platelet Volume 9.6, Neutrophils (%) (Auto) 70, Lymphocytes (%) (Auto) 20, Monocytes (%) (Auto) 10, Eosinophils (%) (Auto) 0, Basophils (%) (Auto) 1, Neutrophils # (Auto) 5.9, Lymphocytes # (Auto) 1.7, Monocytes # (Auto) 0.8, Eosinophils # (Auto) 0.0, Basophils # (Auto) 0.0, Prothrombin Time 12.9, INR Comment 1.0, Activated Partial Thromboplast Time 29, D-Dimer 2.84H, Sodium Level 131L, Potassium Level 4.9, Chloride Level 100, Carbon Dioxide Level 18L, Anion Gap 13, Blood Urea Nitrogen 16, Creatinine 0.76, Estimat Glomerular Filtration Rate > 60, BUN/Creatinine Ratio 21, Glucose Level 118H, Calcium Level 9.4, Total Bilirubin 0.5, Aspartate Amino Transf (AST/SGOT) 74H, Alanine Aminotransferase (ALT/SGPT) 57H, Alkaline Phosphatase 155H, Troponin I < 0.30, Total Protein 9.3H, Albumin 3.4 03/31/17 15:19: Urine Color YELLOW, Urine Clarity CLEAR, Urine pH 7, Urine Specific Minter 1.010L, Urine Protein 2+H, Urine Glucose (UA) NEGATIVE, Urine Ketones 3+H, Urine Nitrite NEGATIVE, Urine Bilirubin NEGATIVE, Urine Urobilinogen NORMAL, Urine Leukocyte Esterase 1+H, Urine RBC (Auto) 1+H, Urine RBC 2-5H, Urine WBC 2- 5, Urine Squamous Epithelial Cells 10-25H, Urine Crystals NONE, Urine Bacteria NEGATIVE, Urine Casts NONE, Urine Mucus NEGATIVE, Urine Culture Indicated NO 04/01/17 05:16: White Blood Count 11.1H, Red Blood Count 2.50L, Hemoglobin 6.7#*L, Hematocrit 21L, Mean Corpuscular Volume 84, Mean Corpuscular Hemoglobin 27, Mean Corpuscular Hemoglobin Concent 32, Red Cell Distribution Width 16.1H, Platelet Count 349, Mean Platelet Volume 9.9, Neutrophils (%) (Auto) 72, Lymphocytes (%) (Auto) 19, Monocytes (%) (Auto) 9, Eosinophils (%) (Auto) 0, Basophils (%) (Auto ) 0, Neutrophils # (Auto) 8.0H, Lymphocytes # (Auto) 2.1, Monocytes # (Auto) 1.0 , Eosinophils # (Auto) 0.0, Basophils # (Auto) 0.0, Sodium Level 132L, Potassium Level 4.8, Chloride Level 105, Carbon Dioxide Level 18L, Anion Gap 9, Blood Urea Nitrogen 39H, Creatinine 0.74, Estimat Glomerular Filtration Rate > 60, BUN/Creatinine Ratio 53, Glucose Level 133H, Calcium Level 8.5, Phosphorus Level 2.6, Magnesium Level 1.5L, Triglycerides Level 138, Cholesterol Level 201H , LDL Cholesterol Direct 149H, VLDL Cholesterol 28, HDL Cholesterol 34L 04/01/17 13:07: Lab Scanned Report Transfusion Reaction Form Assessment/Plan Assessment/Plan Assessment/Plan 1. GI Bleed - unknown upper or lower 2. Anemia 3. Acute CVA 4. HTN 5. DM I spent over 30 minutes sitting down talking with son, regarding EGD and Colonoscopy. We went over all risks and complications. Pt states she does not want colonoscopy and son believes she is alert enough to answer that question. If anything changes I would be happy to come back and talk about them again. My feelings are that if she is not going to want major surgery if needed, then doing a diagnostic test is unnecessary. Thank you for this consult. Clinical Quality Measures DVT/VTE Risk/Contraindication: Risk Factor Score Per Nursin RFS Level Per Nursing on Admit: 4+=Very High Stroke: Date of last known well: Mar 28, 2017 Symptoms onset unknown: Yes CATINA GROVER DO Apr 01, 2017 14:13
--- NOTE | 2017-04-01 14:14 | Occupational Therapy Eval ---
OT Evaluation-General/PLF Medical Diagnosis Admission Date Mar 31, 2017 at 16:40 Medical Diagnosis: R Thalamus and Midbrain CVA Onset Date: Mar 31, 2017 Therapy Diagnosis Therapy Diagnosis: decr self , decr funct use L UE, decr funct mob, decr act satnam Height/Weight Height (Feet): 5 Height (Inches): 4.00 Weight (Pounds): 164 Weight (Ounces): 0.0 Precautions Precautions/Isolations: Standard Precautions Safety Interventions: Reorient-PRN Referral Physician: Renita Referral Reason: Evaluation/Treatment Referral Comments Pt would benefit from skilled physical therapy and nursing contacted regarding PT order. Medical History Pertinent Medical History: Arthritis, DM Additional Medical History Cataract surgery, carpal tunnel surgery, back surgery x 2, fx ankle, spinal stenosis, failed L knee replacement Current History Grandsons found her at home in bed. L sided weakness, L facial droop Reviewed History: Yes Social History Current Living Status: Alone grandsons check in on her regularly ADL-Prior Level of Function ADL PLOF Comments Pt and son reported that she has been able to manage all of her basic self care needs, she cooks and cleans and only needs help to bring in the groceries. She still drives Drive Self: Yes OT Current Status Subjective Pt seen in room, up in bed, agreeable to OT. No pain mentioned Appearance Head turned toward R side. Able to answer questions appropriately Mental Status/Objective Patient Orientation: Person Attachments: Central Line, Orta Catheter, IV, Telemetry Current Glasses/Contacts: Yes Hand Dominance: Right Upper Extremity ROM R UE grossly WFL active. L UE grossly WFL passive. No active movement observed L UE Upper Extremity Sensation Pt reported light touch on L UE Edema: Edema L UE Pt's head was turned to R side and she was able to track to midpoint. She was not able to turn her head to look L past midpoint. Appears to have visual field deficit L side ADL-Treatment ADL-Current Pt has been NPO and not eaten anything yet. She has been dependant for personal care. Pt said that she needed to have BM and nursing was going to put her on bedpan, two person assist. Functional [place] Measure 0=Not Assessed/NA 4=Minimal Assistance 1=Total Assistance 5=Supervision or Setup 2=Maximal Assistance 6=Modified [place] 3=Moderate Assistance 7=Complete IndependenceIRFPAI Quality Coding Scale 6 Independent with activity with or without an assistive device 5 Patient requires set up or clean up by helper. Patient completes activity by themselves 4 Supervision or touching assist (CGA). [place] provide cues , steadying assist 3 The helper provides less than half the effort to complete the activity 2 The helper provides more than half the effort to complete the activity 1 Dependent. The helper does all the effort to complete an activity 7 Patient refused to complete or attempt activity 9 The patient did not perform the activity before the current illness or injury 88 Not attempted due to Medical conditions or safety concerns Education OT Patient Education: Purpose of tx/functional activities, Rehab process Teaching Recipient: Patient, Family Teaching Methods: Discussion Response to Teaching: Verbalize Understanding OT Intermediate Goals Drywall Stripper Helper Goals Time Frame: Apr 29, 2017 Eating (FIM): 5 Grooming(FIM): 4 Bathing(FIM): 3 Upper Body Dressing(FIM): 5 Lower Body Dressing(FIM): 3 Toileting(FIM): 3 Toilet/Commode Transfer(FIM): 3 Additional Goals: 2-Verbalize Understanding, 3-ImproveStrength/[place] 1=Demonstrate adherence to instructed precautions during ADL tasks. 2=Patient will verbalize/demonstrate understanding of assistive devices/ modifications for ADL. 3=Patient will improve strength/tolerance for activity to enable patient to perform ADL's. OT Education/Plan Problem List/Assessment Assessment: Decreased Activ Tolerance, Decreased UE Strength, Dependent Transfers, Impaired Bed Mobility, Impaired Coordination, Impaired Self-Care Skills, Restricted Funct UE ROM, Visual-Perceptual Deficit Pt would benefit from skilled OT to increase her independence in basic self care and to decrease caregiver burden Discharge Recommendations Plan/Recommendations: Continue POC Target Placement May need usp skilled OT Treatment Plan/Plan of Care Treatment,Training & Education: Yes Patient would benefit from OT for education, treatment and training to promote independence in ADL's, mobility, safety and/or upper extremity function for ADL' s. Plan of Care: ADL Retraining, Caregiver Training, Functional Mobility, UE Funct Exercise/Act, UE Neuromus Re-Ed/Coord, Visual/Perceptual Retrain Treatment Duration: Apr 29, 2017 Frequency: 5 times per week Estimated Hrs Per Day: .5 hour per day Agreement: Yes Rehab Potential: Guarded Time/GCodes Start Time: 13:27 Stop Time: 13:48 Total Time Billed (hr/min): 21 Billed Treatment Time visit, 21 minutes evaluation high intensity EMI TODD OT Apr 01, 2017 14:14
[2017-04-01] MEDS: inSUlin (REGULAR) HUMAN 1 UNIT/0.01 ML (CHARGE PER UNIT) SC SCH ×2 (15:23→18:15)
--- NOTE | 2017-04-01 16:34 | History & Physical-Hospitalist ---
HPI History of Present Illness: HPI/Chief Complaint The patient is an 86-year-old white female who was brought to the emergency room yesterday afternoon after having been found by her grandsons on the bed in her home. Last family contact was late on Saturday afternoon when a family member called her to plan an outing for next week. It was noted that the she appeared to be very weak. Could not use her left side and had loss of bowel and urine control. After arrival she has also exhibited GI bleeding. Exam Limitations: no limitations Date Seen 04/01/17 Time Seen by Provider: 16:25 Attending Physician Cate Maravilla MD PCP Alverto Baeza MD Referring Physician Date of Admission Mar 31, 2017 at 16:40 Home Medications & Allergies Home Medications Reviewed patient Home Medication Reconciliation Form Allergies Allergies Coded Allergies Penicillins (Unverified Allergy, Unknown, HIVES, 03/31/17) morphine (Unverified Allergy, Unknown, HIVES, 03/31/17) oxycodone (Verified Allergy, Unknown, 09/21/05) simvastatin (Verified Allergy, Unknown, ALLERGIC TO "STATINS", 09/18/05) sulfamethoxazole (Verified Adverse Reaction, Unknown, NAUSEA, DIARRHEA, , 03/31) trimethoprim (Verified Adverse Reaction, Unknown, NAUSEA, DIARRHEA, , 03/31/17) Uncoded Allergies STATINS ( Allergy, Unknown, INCREASED LIVER ENZYMES, 03/31/17) Past Bgzwaxw-Cnzygx-Ulozfu Hx Patient Social History Alcohol Use: Denies Use Recreational Drug Use: No Smoking Status: Former Smoker Former Smoker, Quit: Apr 01, 1976 Type Used: Cigarettes Physical Abuse Screen: No Sexual Abuse: No Recent Foreign Travel: No Contact w/other who traveled: No Recent Hopitalizations: Yes (BACK SURG) Recent Infectious Disease Expo: No Immunizations Up To Date Tetanus Booster (TDap): Less than 5yrs Date of Influenza Vaccine: Dec 20, 2011 Seasonal Allergies Seasonal Allergies: No Surgeries Yes (CATARACTS, CARPAL TUNNEL, BACK SURG X2, FX ANKLE) Respiratory No Cardiovascular Yes Neurological Yes Reproductive System : No Hx Reproductive Disorders: No Genitourinary No Gastrointestinal No Musculoskeletal Yes (ARTHRITIS, SPINAL STENOSIS, FAILED LEFT KNEE REPLACEMENT) Endocrine History of Endocrine Disorders: Yes Endocrine Disorders: Diabetes, Non-Insulin dep HEENT History of HEENT Disorders: Yes HEENT Disorders: Cataract Loss of Vision: Denies Hearing Impairment: Denies Cancer No Psychosocial History of Psychiatric Problem: No Integumentary History of Skin or Integumenta: No Blood Transfusions History of Blood Disorders: No Adverse Reaction to a Blood Tr: No Family Medical History Significant Family History: Cancer, CAD Over 55 Years Old Family Hx: Cancer 09 BROTHER Family history: Cardiovascular disease 03 FATHER 03 MOTHER Family history: Diabetes mellitus 03 MOTHER 09 BROTHER Review of Systems Constitutional: see HPI EENTM: no symptoms reported Respiratory: no symptoms reported Cardiovascular: no symptoms reported Gastrointestinal: no symptoms reported Genitourinary: no symptoms reported Musculoskeletal: other (left-sided weakness) Skin: no symptoms reported Physical Exam Physical Exam Vital Signs Vital Signs - First Documented 03/31/17 14:56 Temp 97.8 Pulse 90 Resp 18 B/P (MAP) 152/77 (102) Pulse Ox 98 O2 Delivery Room Air O2 Flow Rate 2.00 Capillary Refill : Less Than 3 Seconds General Appearance: Mild Distress, Other Eyes: Bilateral Eye Normal Inspection HEENT: Normal ENT Inspection Neck: Normal Inspection Respiratory: Chest Non Tender, Lungs Clear, Normal Breath Sounds, No Accessory Muscle Use, No Respiratory Distress Cardiovascular: Regular Rate, Rhythm, No Edema, No Gallop, No JVD, No Murmur, Normal Peripheral Pulses Gastrointestinal: Normal Bowel Sounds, No Organomegaly, No Pulsatile Mass, Non Tender, Soft Skin: Normal Color, Warm/Dry Lymphatic: No Adenopathy Comments The patient exhibited a left facial droop. In addition she was unable to furrow the left brow. Speech was attempted but I could not understand it. The left arm was flaccid. Intellectual Property Legal Assistant on the left was 0. The left lower extremity showed some dorsi flexion and withdrawal from plantar stimulus. Results Results/Procedures Lab Laboratory Tests 03/31/17 15:09 04/01/17 05:16 04/01/17 16:05 04/01/17 22:10 04/02/17 03:40 Assessment/Plan Admission Diagnosis CVA with left hemiparesis. 2.GI bleed Assessment and Plan Address GI bleeding. She has been seen by Dr. Carson and has refused the idea of endoscopy at this point. Speech, PT, OT eval. Clinical Quality Measures DVT/VTE Risk/Contraindication: Risk Factor Score Per Nursin RFS Level Per Nursing on Admit: 4+=Very High Other: Patient has GI bleed Stroke: Date of last known well: Mar 28, 2017 Symptoms onset unknown: Yes LINDSEY BENNETT MD Apr 01, 2017 16:34
[2017-04-01 16:39] LABS: HEMOGLOBIN 9.1 G/DL (11.5-16.0)
[2017-04-01] MEDS ORDERED: INFLUENZA TRIvalent 2017-2018 0.5 ML/45 MCG SYR IM ONE (19:45)
[2017-04-01 22:20] LABS: HEMOGLOBIN 8.6 G/DL (11.5-16.0)
[2017-04-02] VITALS (19 sets, daily range): BP systolic 135–170; BP diastolic 57–83
[2017-04-02] MEDS: inSUlin (REGULAR) HUMAN 1 UNIT/0.01 ML (CHARGE PER UNIT) SC SCH ×4 (00:18→19:36)
[2017-04-02 03:55] LABS: BASOPHILS # (AUTO) 0.1 10^3/uL (0.0-0.1); BASOPHILS % (AUTO) 1 % (0-10); EOSINOPHILS # (AUTO) 0.1 10^3/uL (0.0-0.3); EOSINOPHILS % (AUTO) 2 % (0-10); HEMATOCRIT 25 % (35-52); HEMOGLOBIN 8.2 G/DL (11.5-16.0); LYMPHOCYTES # (AUTO) 2.4 X 10^3 (1.0-4.0); LYMPHOCYTES % (AUTO) 30 % (12-44); MEAN CORPUSCULAR HEMOGLOBIN 29 PG (25-34); MEAN CORPUSCULAR HGB CONC 33 G/DL (32-36); MEAN CORPUSCULAR VOLUME 86 FL (80-99); MEAN PLATELET VOLUME 9.5 FL (7.4-10.4); MONOCYTES # (AUTO) 1.2 X 10^3 (0.0-1.0); MONOCYTES % (AUTO) 14 % (0-12); NEUTROPHILS # (AUTO) 4.4 X 10^3 (1.8-7.8); NEUTROPHILS % (AUTO) 54 % (42-75); PLATELET COUNT 203 10^3/uL (130-400); RED BLOOD COUNT 2.87 10^6/uL (4.35-5.85); RED CELL DISTRIBUTION WIDTH 16.2 % (10.0-14.5); WHITE BLOOD COUNT 8.2 10^3/uL (4.3-11.0)
[2017-04-02 04:25] LABS: BUN/CREATININE RATIO 48; CALCIUM 8.2 MG/DL (8.5-10.1); CARBON DIOXIDE 15 MMOL/L (21-32); CHLORIDE 112 MMOL/L (98-107); CREATININE SERUM 0.66 MG/DL (0.60-1.30); GFR ESTIMATED > 60; GLUCOSE 100 MG/DL (70-105); MAGNESIUM 1.7 MG/DL (1.8-2.4); PHOSPHORUS 2.2 MG/DL (2.3-4.7); POTASSIUM 3.8 MMOL/L (3.6-5.0); SODIUM 136 MMOL/L (135-145)
[2017-04-02] MEDS: POTASSIUM CL 10MEQ/50ML IVPB 50 ML IV SCH (04:37)
[2017-04-02] MEDS: MAGNESIUM 1 GM/100 ML IVPB 100 ML IV SCH ×3 (04:37→05:46)
[2017-04-02] MEDS: KCL 20 MEQ TAB (K-DUR) PO SCH (04:37)
[2017-04-02] MEDS: NS IV 1000 ML 1,000 ML IV SCH ×3 (04:43→23:51)
--- NOTE | 2017-04-02 06:05 | Pulmonary Progress Note ---
Subjective Time Seen by Provider: 06:05 Subjective/Events-last exam Pt refused colonoscopy yesterday with surgery. Exam Exam Vital Signs Date Time Temp Pulse Resp B/P (MAP) Pulse Ox O2 Delivery O2 Flow Rate FiO2 04/02/17 05:00 75 18 143/82 (102) 96 Room Air 04/02/17 04:05 96 Room Air 04/02/17 04:00 98.4 80 21 152/63 (92) 95 Room Air 04/02/17 03:00 81 21 156/71 (99) 96 Room Air 04/02/17 02:00 82 20 135/75 (95) 97 Room Air 04/02/17 01:00 75 22 151/67 (95) 96 Room Air 04/02/17 01:00 85 04/02/17 00:10 95 Room Air 04/02/17 00:00 98.6 80 23 137/70 (92) 96 Room Air 04/01/17 23:00 79 20 143/68 (93) 95 Room Air 04/01/17 22:00 77 21 139/65 (89) 98 Room Air 04/01/17 21:00 80 20 152/72 (98) 98 Room Air 04/01/17 20:00 79 20 150/70 (96) 98 Room Air 04/01/17 19:50 97 Room Air 04/01/17 19:00 98.6 87 16 139/86 (103) 97 Room Air 04/01/17 19:00 81 04/01/17 18:00 80 22 152/72 (98) 97 Room Air 04/01/17 17:00 78 21 162/79 (106) 97 Room Air 04/01/17 16:00 98 Room Air 04/01/17 16:00 74 21 155/75 (101) 97 Room Air 04/01/17 15:00 92 21 164/76 (105) 95 Room Air 04/01/17 14:00 89 21 154/72 (99) 98 Room Air 04/01/17 13:00 87 24 157/77 (103) 98 Room Air 04/01/17 13:00 87 04/01/17 12:00 88 31 155/70 (98) 99 Room Air 04/01/17 12:00 98 Room Air 04/01/17 11:34 99.1 80 21 155/70 97 Room Air 04/01/17 11:01 98.2 87 20 158/71 98 Room Air 04/01/17 11:00 78 24 158/71 (100) 98 Room Air 04/01/17 10:28 98.2 78 21 164/77 98 Room Air 04/01/17 10:00 86 25 168/81 (110) 98 Room Air 04/01/17 09:00 76 29 167/80 (109) 98 Room Air 04/01/17 08:44 98.3 93 24 146/65 97 Room Air 04/01/17 08:24 98.4 92 19 148/84 98 Room Air 04/01/17 08:00 98 Room Air 04/01/17 08:00 90 22 148/84 (105) 97 Room Air 04/01/17 08:00 98.4 Room Air 04/01/17 07:00 89 04/01/17 07:00 90 22 174/78 (110) 97 Room Air 04/01/17 06:00 90 23 173/66 (101) 96 Room Air I & O 04/02/17 07:00 Intake Total 1350 ml Output Total 1875 ml Balance -525 ml General Appearance: No Apparent Distress, Other (currently sleeping ) HEENT: Normal ENT Inspection Neck: Normal Inspection Respiratory: Chest Non Tender, Lungs Clear, Normal Breath Sounds, No Accessory Muscle Use, No Respiratory Distress Cardiovascular: Regular Rate, Rhythm, No Edema, No Gallop, No JVD, No Murmur, Normal Peripheral Pulses Capillary Refill: Less Than 3 Seconds Peripheral Pulses: 2+ Dorsalis Pedis (R), 2+ Left Dors-Pedis (L), 2+ Radial Pulses (R), 2+ Radial Pulses (L) Gastrointestinal: normal bowel sounds, non tender, soft, no organomegaly, no pulsatile mass Skin: Normal Color, Warm/Dry Lymphatic: No Adenopathy Results Lab Laboratory Tests 03/31/17 15:09 04/01/17 05:16 04/01/17 16:05 04/01/17 22:10 04/02/17 03:40 Assessment/Plan Assessment/Plan Acute CVA -plavix - has been held secondary to GIB -ASA -Check Echo and carotid dopplers -Pt failed swallow eval - she is on a dysphagia diet -NPO - start Protonix IV for PPX GIB - With BRBPR probably lower GIB - Hb has been stable since transfusion -surgery following -PT refused diagnostic colonoscopy -H&H Q6 - D/C -Monitor close -IVF Metabolic acidosis -Monitor Hyponatremia -Improved Debility -PT/OT -pt was living alone she will probably need ECF upon discharge. will transfer pt to 4th floor. Pt refused colonoscopy. Hb stable since yesterday. 233 Clinical Quality Measures DVT/VTE Risk/Contraindication: Risk Factor Score Per Nursin RFS Level Per Nursing on Admit: 4+=Very High Other: Patient has GI bleed Stroke: Date of last known well: Mar 28, 2017 Symptoms onset unknown: Yes DOANTO SHEPARD DO Apr 02, 2017 06:05
[2017-04-02] MEDS: SODIUM PHOSPHATE INJ 30 MM in NS (IVPB) 250 ML IV NR ×2 (08:41→08:51)
[2017-04-02] MEDS: PANTOPRAZOLE 40 MG/10 ML (PROTONIX) VIAL IV SCH (08:43)
--- NOTE | 2017-04-02 09:14 | Speech Therapy Progress Note ---
Therapy Progress Note Speech pathology attempted follow up with the patient on this date. At this time , the patient is undergoing a procedure. Speech pathology will reattempt at a later time, as appropriate. MARIA ELENA SALAS Apr 02, 2017 09:14
--- NOTE | 2017-04-02 09:49 | Diagnostic Imaging Report ---
INDICATION: CVA, left hemiparesis. COMPARISON: 04/01/2017. FINDINGS: There is cardiomegaly. There is some minimal venous congestion. There is no pleural effusion or pneumothorax. The mediastinum is unremarkable. IMPRESSION: Cardiomegaly and some minimal central pulmonary venous congestion. Dictated by: Dictated on workstation # [id number]
--- NOTE | 2017-04-02 10:20 | Speech Therapy Daily Note ---
Speech Daily Progress Note Subjective Date Seen by Provider: Apr 02, 2017 Time Seen by Provider: 09:05 The patient was laying in bed upon entrance. The patient greeted the clinician appropriately and was agreeable to participation in the dysphagia re-evaluation. To note- Thin Liquids were found at the patient's bedside (The patient demonstrated signs/symptoms of aspiration with thin liquids during a previous evaluation. The speech pathologist recommended nectar-thick liquids). The thin liquids were removed by this clinician prior to the evaluation. Objective Prior to bolus trials, the patient's SpO2% was at 98% with room air. - Thin Liquids (via teaspoon): The patient demonstrated an immediate, rigorous cough in correlation to thin liquids via teaspoon. - [place]-Thick Liquid (teaspoon, straw): No signs/symptoms of aspiration were demonstrated with multiple boluses of nectar-thick liquid. - Puree: No signs/symptoms of aspiration were demonstrated with multiple boluses of puree. - Mechanical Soft: The patient demonstrated an immediate cough following one bolus of mechanical soft (nadia cracker softened in pudding). The patient should continue to receive a puree diet consistency with nectar- thick liquids. This information was shared and discussed with the patient's RN. Assessment Assessment Current Status: Fair Progress Treatment Plan Continue Plan of Care Speech Short Term Goals Short Term Goals Short Term Goals 1. The patient will tolerate trials of the least restrictive diet without signs/ symptoms of aspiration or laryngeal penetration. 2. The patient will demonstrate swallowing strategies with 80% accuracy with moderate clinician verbal prompting. Time Frame-STG: Four Days Speech Long-Term Goals Automatic Riveting Machine Operator Goals 1. The patient will tolerate the least restrictive diet without signs/symptoms of aspiration or laryngeal penetration. Time Frame: One Week Speech-Plan Treatment Plan Speech Therapy Treatment Plan: Continue Plan of Care Continue skilled speech pathology to target swallowing safety and reduce the patient's aspiration risks. Treatment Duration: Apr 08, 2017 Frequency: 3 times per week Estimated Hrs Per Day: .25 hour per day Rehab Potential: Guarded Safety Risks/Education Teaching Recipient: Patient Teaching Methods: Discussion Response to Teaching: Reinforcement Needed Education Topics Provided: Recommendations, Swallowing Strategies Time Speech Therapy Time In: 09:05 Speech Therapy Time Out: 09:20 Total Billed Time: 15 Billed Treatment Time DIOR Jones MARIA ELENA SALAS Apr 02, 2017 10:20
--- NOTE | 2017-04-02 10:40 | Diagnostic Imaging Report ---
PROCEDURE: US carotid duplex bilateral. TECHNIQUE: Multiple Real-time grayscale images were obtained over the carotid arteries in various projections bilaterally. Additional duplex Doppler and color Doppler images were also obtained. INDICATION: Hypertension. FINDINGS: There are no focally elevated velocities in either internal carotid artery. The ICA/CCA ratios are within normal limits bilaterally. There is antegrade flow in the vertebral arteries bilaterally. Grayscale images demonstrate minimal carotid plaque bilaterally. IMPRESSION: Minimal bilateral carotid plaque; however, spectral analysis shows no evidence of a hemodynamically significant stenosis in either internal carotid artery. Dictated by: Dictated on workstation # [id number]
--- NOTE | 2017-04-02 10:42 | Occupational Ther Daily Note ---
OT Current Status-Daily Note Subjective Pt lying in bed with eyes almost closed, did respond to verbal questions appropriately (name, how do you feel). Pt agreed to therapy. Mental Status/Objective Functional [place] Measure 0=Not Assessed/NA 4=Minimal Assistance 1=Total Assistance 5=Supervision or Setup 2=Maximal Assistance 6=Modified [place] 3=Moderate Assistance 7=Complete [place] Attachments: Orta Catheter, IV, Telemetry ADL-Treatment Pt attempted to reach across body with R UE to roll toward L side. Nrsg present to assist with bedpan. Pt dependent with toileting at this time. When given oral swab, pt is able to cleanse mouth by self. Assist to bring cup to mouth, pt able to close mouth around straw. Trace movement noted with shldr extension. No movement noted in elbow ext/flexion, wrist ext/flexion or finger ext/flexion. Did note trace movement in L thumb adduction. After therapy, pt lying in bed with call light in reach. All needs met in room. OT Short Term Goals Short Term Goals 1=Demonstrate adherence to instructed precautions during ADL tasks. 2=Patient will verbalize/demonstrate understanding of assistive devices/ modifications for ADL. 3=Patient will improve strength/tolerance for activity to enable patient to perform ADL's. OT Retirement Goals Retirement Goals Time Frame: Apr 29, 2017 Eating (FIM): 5 Grooming(FIM): 4 Bathing(FIM): 3 Upper Body Dressing(FIM): 5 Lower Body Dressing(FIM): 3 Toileting(FIM): 3 Toilet/Commode Transfer(FIM): 3 Additional Goals: 2-Verbalize Understanding, 3-ImproveStrength/[place] 1=Demonstrate adherence to instructed precautions during ADL tasks. 2=Patient will verbalize/demonstrate understanding of assistive devices/ modifications for ADL. 3=Patient will improve strength/tolerance for activity to enable patient to perform ADL's. OT Education/Plan Problem List/Assessment Pt would benefit from skilled OT to increase her independence in basic self care and to decrease caregiver burden Discharge Recommendations Plan/Recommendations: Continue POC Treatment Plan/Plan of Care Patient would benefit from OT for education, treatment and training to promote independence in ADL's, mobility, safety and/or upper extremity function for ADL' s. Plan of Care: ADL Retraining, Caregiver Training, Functional Mobility, UE Funct Exercise/Act, UE Neuromus Re-Ed/Coord, Visual/Perceptual Retrain Treatment Duration: Apr 29, 2017 Frequency: 5 times per week Estimated Hrs Per Day: .5 hour per day Agreement: Yes Rehab Potential: Guarded Time/GCodes Start Time: 09:30 Stop Time: 09:50 Total Time Billed (hr/min): 20 Billed Treatment Time 1 visit-FA 1 (20 min) JUAN FRANCISCO SIERRA Apr 02, 2017 10:42
--- NOTE | 2017-04-02 11:38 | Physical Therapy Evaluation ---
PT Evaluation-General Medical Diagnosis Admission Date Mar 31, 2017 at 16:40 Medical Diagnosis: R Thalamus and Midbrain CVA Onset Date: Mar 31, 2017 Therapy Diagnosis Therapy Diagnosis: impaired mobility, strength, endurance, balance Height/Weight Height (Feet): 5 Height (Inches): 4.00 Weight (Pounds): 171 Weight (Ounces): 2.0 Precautions Precautions/Isolations: Fall Prevention Referral Physician: Gaston Steward DO Reason for Referral: Evaluation/Treatment Medical History Pertinent Medical History: Arthritis, DM Additional Medical History HTN, spinal stenosis, left knee replacement, cataracts, carpal tunnel surg, back surg x2 Current History patient had a CVA with left hemiparesis, also she has had a recent back surgery Reviewed History: Yes Social History Home: Single Level Current Living Status: Alone Entry Into Home: Stairs With Railing PT Steps Into Home: 4 family states she may be going to via [facility] [place] Prior/Core FIM Prior Level of Function Functional [place] Measure 0=Not Assessed/NA 4=Minimal Assistance 1=Total Assistance 5=Supervision or Setup 2=Maximal Assistance 6=Modified [place] 3=Moderate Assistance 7=Complete [place] Bed Mobility: 6 Transfers (B,C,W/C) (FIM): 6 Gait: 6 Family states she was using a rolling walker for ambulation PT Evaluation-Current Subjective Patient in bed pre tx, drowsy but wakes, no complaints of pain. Pt/Family Goals none stated Objective Patient Orientation: Unable to Assess Attachments: Orta Catheter, IV ROM/Strength ROM Lower Extremities WNL Strength Lower Extremities left lower extremity is flaccid, right lower extremity 4/5 gross Neuromuscular (Tone, Coordination, Reflexes) decreased tone on left side UE and LE. Patient has left facial droop, left tongue deviation, poor tracking, seems to have decreased peripheral vision on the left. Sensory Hearing: Functional Hand Dominance: Right Sensation Right Lower Extremit: Intact Sensation Left Lower Extremity: Intact Sensation Lower Extremities Patient has no complaints of numbness or tingling in her left leg. Transfers Functional [place] Measure 0=Not Assessed/NA 4=Minimal Assistance 1=Total Assistance 5=Supervision or Setup 2=Maximal Assistance 6=Modified [place] 3=Moderate Assistance 7=Complete [place] Transfers (B, C, W/C) (FIM): 2 Scootin Rollin Supine to/from Sit: 2 Patient total assist of 2 for bed mobility and supine <-> sit. Balance Sitting Static: Poor Sitting Dynamic: Poor Treatment Patient sat at the edge of the bed for about 15 min, also performed LAQ x20 and AP x20 on the right side. Assessment/Needs Patient has impaired mobility, strength, endurance, balance. Left side seems flaccid and she leans and pushes a little to the left. Rehab Potential: Poor PT Short Term Goals Short Term Goals Time Frame: Apr 09, 2017 Transfers (B,C,W/C) (FIM): 3 PT Plan Problem List Problem List: Activity Tolerance, Functional Strength, Safety, Balance, Gait, Transfer, Bed Mobility, ROM Treatment/Plan Treatment Plan: Continue Plan of Care Treatment Plan: Bed Mobility, Concurrent Therapy, Education, Functional Activity [place], Functional Strength, Gait, Safety, Therapeutic Exercise, Transfers Treatment Duration: Apr 09, 2017 Frequency: 6 times per week Estimated Hrs Per Day: .25 hour per day (15-30') Patient and/or Family Agrees t: Yes Safety Risks/Education Patient Education: Transfer Techniques, Correct Positioning, Disease Process, Safety Issues Teaching Recipient: Patient, Family Teaching Methods: Demonstration, Discussion Response to Teaching: Reinforcement Needed Discharge Recommendations Plan Patient will perform bed mobility and transfer training, balance and endurance training, functional strengthening, and education, to improve functional mobility and independence at home. Therapy D/C Recommendations: Home w/ Family Support, [facility] (TCU/[facility]) Time/GCodes Time In: 1105 Time Out: 1130 Total Billed Treatment Time: 25 Total Billed Treatment 1 visit [facility] 25' SUNNY PIERSON PT Apr 02, 2017 11:38
--- NOTE | 2017-04-02 14:19 | Progress Note-Hospitalist ---
Standard Progress Note Progress Notes/Assess & Plan Date Seen 04/02/17 Time Seen by Provider: 14:15 Diagnosis CVA with left hemiparesis. 2.GI bleed Assess & Plan/Chief Complaint The patient appears more alert today. Her speech although not clear is more understandable. She was seen by speech/swallow in and the recommendations were for neck or thickened liquids and pured diet. She has been able to tolerate this. Physical exam: Lungs are clear to auscultation. CV is regular with a grade 2 murmur in the right and left second intercostal spaces and along the left sternal border. Abdomen is soft to palpation. She is able to furrow both right and left forehead today. She was reluctant to smile. There remains a left facial droop and effacement of the nasolabial fold. The right hand has a 0 fire lieutenant and she is unable to elevate or sustain elevation of the left arm. There was modest dorsiflexion of the left foot with plantar stimulus. I could not elicit any evidence of quad contraction on the left. Impression: CVA with left hemiparesis as defined above. 2.GI bleed which appears stable. Plan: Transfer to medical floor and continue physical therapy. Labs Laboratory Tests 03/31/17 15:09 04/01/17 05:16 04/01/17 16:05 04/01/17 22:10 04/02/17 03:40 LINDSEY BENNETT MD Apr 02, 2017 14:19
--- NOTE | 2017-04-02 15:46 | Physical Therapy Daily Note ---
PT Daily Note-Current Subjective Pt is laying in bed pre tx with c/o pain when BP is taken. Pt agrees to PT. Pt LLE is positioned in IR at start of tx. Pain Numeric Pain Scale: 0-No Pain Location: No Pain Reported Appearance Pt is laying in bed post tx with pillow under thigh to prevent IR of the LLE and on right side with pillow support for pressure relief. Pt has the nurse call , phone, and and tray within reach. Mental Status Patient Orientation: [place] Attachments: SCD's (BLE), Orta Catheter, IV Telemetry Transfers Functional [place] Measure 0=Not Assessed/NA 4=Minimal Assistance 1=Total Assistance 5=Supervision or Setup 2=Maximal Assistance 6=Modified [place] 3=Moderate Assistance 7=Complete IndependenceIRFPAI Quality Coding Scale 6 Independent with activity with or without an assistive device 5 Patient requires set up or clean up by helper. Patient completes activity by themselves 4 Supervision or touching assist (CGA). [place] provide cues , steadying assist 3 The helper provides less than half the effort to complete the activity 2 The helper provides more than half the effort to complete the activity 1 Dependent. The helper does all the effort to complete an activity 7 Patient refused to complete or attempt activity 9 The patient did not perform the activity before the current illness or injury 88 Not attempted due to Medical conditions or safety concerns Transfers (B, C, W/C) (FIM): 2 Supine to/from Sit: 2 Total A x2 to perform supine to sitting edge of bed transfer. Verbal cues needed for hand placement and safety. Exercises Seated Therapy Exercises: Ankle pumps (20 x1 RLE), Long arc quads (20 x1 RLE), Hip flexion (10 x1 RLE) Neuromuscular Sitting balance training as well as leaning to the R and to the L performed to promote maintenance of balance. Treatments Pt performed bed mobility, neuromuscular re-education, and LE exercises. Assessment Current Status: Poor Progress Pt continues to exhibit flaccidity in the LUE and LLE. Pt required max A to maintain sitting balance, but is able to initiate weight shifting to the R and L after verbal and manual cues. Pt not able to achieve full AROM during LAQ with the RLE. PT Short Term Goals Short Term Goals Time Frame: Apr 09, 2017 Transfers (B,C,W/C) (FIM): 3 PT Plan Problem List Problem List: Activity Tolerance, Functional Strength, Safety, Balance, Gait, Transfer, Bed Mobility, ROM Treatment/Plan Treatment Plan: Continue Plan of Care Treatment Plan: Bed Mobility, Concurrent Therapy, Education, Functional Activity [place], Functional Strength, Gait, Safety, Therapeutic Exercise, Transfers Treatment Duration: Apr 09, 2017 Frequency: 6 times per week Estimated Hrs Per Day: .25 hour per day (15-30') Patient and/or Family Agrees t: Yes Safety Risks/Education Patient Education: Transfer Techniques, Correct Positioning, Safety Issues Teaching Recipient: Patient Teaching Methods: Demonstration, Discussion Response to Teaching: Unable to Return Demonstration Time/GCodes Time In: 1515 Time Out: 1535 Total Billed Treatment Time: 20 Total Billed Treatment 1 visit 20 min SUNNY AGUILAR PT Apr 02, 2017 15:46
[2017-04-02] MEDS: MUPIROCIN 2% OINT 22 GM (BACTROBAN) TUBE NSEACH SCH (20:04)
[2017-04-03] MEDS: inSUlin (REGULAR) HUMAN 1 UNIT/0.01 ML (CHARGE PER UNIT) SC SCH ×2 (00:06→05:45)
[2017-04-03 05:41] LABS: BASOPHILS % (AUTO) 1 % (0-10); EOSINOPHILS # (AUTO) 0.2 10^3/uL (0.0-0.3); EOSINOPHILS % (AUTO) 3 % (0-10); HEMATOCRIT 25 % (35-52); HEMOGLOBIN 8.1 G/DL (11.5-16.0); LYMPHOCYTES # (AUTO) 1.7 X 10^3 (1.0-4.0); LYMPHOCYTES % (AUTO) 27 % (12-44); MEAN CORPUSCULAR HEMOGLOBIN 28 PG (25-34); MEAN CORPUSCULAR HGB CONC 33 G/DL (32-36); MEAN CORPUSCULAR VOLUME 86 FL (80-99); MONOCYTES # (AUTO) 0.8 X 10^3 (0.0-1.0); MONOCYTES % (AUTO) 13 % (0-12); NEUTROPHILS # (AUTO) 3.7 X 10^3 (1.8-7.8); NEUTROPHILS % (AUTO) 57 % (42-75); PLATELET COUNT 184 10^3/uL (130-400); RED BLOOD COUNT 2.87 10^6/uL (4.35-5.85); RED CELL DISTRIBUTION WIDTH 16.2 % (10.0-14.5); WHITE BLOOD COUNT 6.4 10^3/uL (4.3-11.0)
[2017-04-03] MEDS: NS IV 1000 ML 1,000 ML IV SCH (06:44)
[2017-04-03 08:00] VITALS: BP 159/70
[2017-04-03] MEDS: MUPIROCIN 2% OINT 22 GM (BACTROBAN) TUBE NSEACH SCH (08:16)
[2017-04-03] MEDS: PANTOPRAZOLE 40 MG/10 ML (PROTONIX) VIAL IV SCH (08:16)
--- NOTE | 2017-04-03 10:47 | ST Cognitive Linguistic Eval ---
Speech Evaluation-General Medical Diagnosis R Thalamus and Midbrain CVA Onset Date: Mar 31, 2017 Therapy Diagnosis Therapy Diagnosis: Moderate Dysarthria, Mild Expressive/Receptive Aphasia Precautions Precautions: Aspiration Precautions/Isolations: Aspiration, Fall Prevention, Standard Precautions Referral Referring Physician: Dr. Cate Maravilla Reason for Referral: Evaluation/Treatment Speech and Language Evaluation Medical History Pertinent Medical History: Arthritis, DM Current History The patient recently experienced a right CVA. Throughout the patient's stay, she has additionally been diagnosed with moderate oropharyngeal dysphagia and is currently receiving a pureed diet with nectar-thick liquid. Reviewed History: Yes Social History Current Living Status: Alone Speech PLF-Current Status Prior Level of Function The patient was independent with speech, language, and cognition tasks prior to admission. Subjective The patient was in bed, eyes closed upon entrance. The patient was easily roused with gentle verbal prompts, however, remained somewhat drowsy throughout the session. Due to the patient's increased fatigue, swallow trials were deferred and a speech and language evaluation was initiated. The patient was agreeable to participate in the assessment on this date. Language Eval: Auditory Comprehends Simple Yes/No Ques: Functional (The patient responded to orientation questions (including name, location) and simple yes and no questions appropriately.) Indent/Objects [place]: Functional (The patient was easily able to identify a cup, spoon, tissues, pen, and piece of paper.) Ident/Pics in Multiple [place]: Functional Follows 1-Step Commands: Functional (The patient was able to follow one-step, simple commands with slightly increased response time provided.) Follows Complex Directions: Moderate (The patient was unable to follow two- step commands at this time.) Follows General Conversations: Moderate (The patient demonstrated difficulty following conversations, however, was able to state she enjoyed playing on her Ipad.) Language Eval: Verbal Language Completes Spontaneous Greeting: Functional Produces Auto, Serial Info: Functional (The patient was able to state her name and the city where she lives for the clinician.) Imitates Simple Words/Phrases: Functional Word Finding: Moderate Requests Basic Needs: Functional (The patient was able to communicate simple functional needs.) States Basic Personal Info: Functional (The patient was able to state her name , city, age and date of .) Language Evaluation: Reading The patient deferred reading tasks stating, "I don't have my glasses here." Cognitive Patient Orientation The patient was independently oriented to self, location, month, and year. Objective Oral Motor/Speech Production The patient demonstrated a left facial droop at rest, as well as, reduced left sided labial retraction, decreased left sided labial protrusion, and left lingual deviation upon protrusion. The patient displays moderate dysarthria characterized by imprecise articulation. The patient remains approximately 60 to 70% intelligible in known contexts. Impression The patient displays moderate dysarthria (consistent with flaccid type) and mild receptive and expressive aphasia characterized by difficulty with higher level directions and conversation. Speech Short Term Goals Short Term Goals Short Term Goals 1. The patient will tolerate trials of the least restrictive diet without signs/ symptoms of aspiration or laryngeal penetration. 2. The patient will demonstrate swallowing strategies with 80% accuracy with moderate clinician verbal prompting. 3. The patient will display 70% accuracy with oral motor exercises, as well as, use of intelligibility strategies with moderate clinician verbal cueing. Time Frame-STG: Four Days Speech Shelter Goals Shelter Goals 1. The patient will tolerate the least restrictive diet without signs/symptoms of aspiration or laryngeal penetration. 2. The patient will demonstrate improved cognitive linguistic skills for increased safety and function with ADL's in the least restrictive setting. Time Frame: One Week Speech-Plan Treatment Plan Speech Therapy Treatment Plan: Continue Plan of Care Continue skilled speech pathology to target functional communication. Treatment Duration: Apr 08, 2017 Frequency: 3 times per week Estimated Hrs Per Day: .25 hour per day Rehab Potential: Poor Safety Risks/Education Teaching Recipient: Patient Teaching Methods: Discussion Response to Teaching: Reinforcement Needed Education Topics Provided: Results, Recommendations, Plan of Care Time Speech Therapy Time In: 09:15 Speech Therapy Time Out: 09:35 Total Billed Time: 20 Billed Treatment Time 1, WONG MARITZA,MARIA ELENA ST Apr 03, 2017 10:47
--- NOTE | 2017-04-03 10:56 | Physical Therapy Daily Note ---
PT Daily Note-Current Subjective Pt is laying Supine but propped up on pillows at R hip. Pt agrees to co- treatment with PT & OT. Pain Pain Description: Ache Comment: Pt voices with groans/moans but cannot rate. Mental Status Patient Orientation: Person, Confused, Mumbles Attachments: Orta Catheter, IV Transfers Functional [place] Measure 0=Not Assessed/NA 4=Minimal Assistance 1=Total Assistance 5=Supervision or Setup 2=Maximal Assistance 6=Modified [place] 3=Moderate Assistance 7=Complete IndependenceIRFPAI Quality Coding Scale 6 Independent with activity with or without an assistive device 5 Patient requires set up or clean up by helper. Patient completes activity by themselves 4 Supervision or touching assist (CGA). [place] provide cues , steadying assist 3 The helper provides less than half the effort to complete the activity 2 The helper provides more than half the effort to complete the activity 1 Dependent. The helper does all the effort to complete an activity 7 Patient refused to complete or attempt activity 9 The patient did not perform the activity before the current illness or injury 88 Not attempted due to Medical conditions or safety concerns Scootin Rollin Supine to/from Sit: 1 Sit to/from Stand: 1 Bed to/from Chair: 1 Weight Bearing Right Lower Extremity: Right Full Weight Bearing Left Lower Extremity: Left Full Weight Bearing Exercises Supine Ex: Rolling Supine Reps: 5 Treatments Pt rolls to R side at Max A to complete [facility] following a BM in bed. OT cleans while PT assists pt with rolling. Pt transfers to sitting at EOB at Max A x2 then pt SPT at Max A x2 to recliner. Pt rests in recliner at end of tx with all needs met. Assessment Current Status: Fair Progress Pt is more awake although is still a Max A due to weakness and confusion at this time. PT Short Term Goals Short Term Goals Time Frame: Apr 09, 2017 Transfers (B,C,W/C) (FIM): 3 PT Plan Problem List Problem List: Activity Tolerance, Functional Strength, Safety, Balance, Gait, Transfer, Bed Mobility, ROM Treatment/Plan Treatment Plan: Continue Plan of Care Treatment Plan: Bed Mobility, Concurrent Therapy, Education, Functional Activity Manuelito, Functional Strength, Gait, Safety, Therapeutic Exercise, Transfers Treatment Duration: Apr 09, 2017 Frequency: 6 times per week Estimated Hrs Per Day: .25 hour per day (15-30') Patient and/or Family Agrees t: Yes Safety Risks/Education Patient Education: Transfer Techniques, Correct Positioning, Safety Issues Teaching Recipient: Patient Teaching Methods: Discussion Response to Teaching: Reinforcement Needed Time/GCodes Time In: 1005 Time Out: 1040 Total Billed Treatment Time: 35 Total Billed Treatment 1, FA x2 (35m) PT worked on transfers, bed mobility and sitting & standing balance during transfers while OT worked on hand placement, sequencing and following verbal instructions given during tasks. 35m Co-treat w/OT MERCEDES MERINO PTA Apr 03, 2017 10:56
--- NOTE | 2017-04-03 11:27 | Discharge Summary-Hospitalist ---
Diagnosis/Chief Complaint Date of Admission Mar 31, 2017 at 16:40 Date of Discharge Admission Diagnosis CVA with left hemiparesis. 2.GI bleed Discharge Diagnosis CVA with left-sided paralysis catastrophic typpe Gastrointestinal bleeding noted on admission no longer a candidate for antiplatelet or anticoagulation therapy since she refuses endoscopy therefore risks outweigh benefits Hypertension Discharge Summary Discharge Physical Examination Allergies: Coded Allergies: Penicillins (Unverified Allergy, Unknown, HIVES, 03/31/17) morphine (Unverified Allergy, Unknown, HIVES, 03/31/17) oxycodone (Verified Allergy, Unknown, 09/21/05) simvastatin (Verified Allergy, Unknown, ALLERGIC TO "STATINS", 09/18/05) sulfamethoxazole (Verified Adverse Reaction, Unknown, NAUSEA, DIARRHEA, , 03/31/17) trimethoprim (Verified Adverse Reaction, Unknown, NAUSEA, DIARRHEA, , 03/31) Uncoded Allergies: STATINS (Allergy, Unknown, INCREASED LIVER ENZYMES, 03/31/17) Vitals & I&Os Vital Signs Date Time Temp Pulse Resp B/P (MAP) Pulse Ox O2 Delivery O2 Flow Rate FiO2 04/03/17 08:00 98.5 83 18 159/70 (99) 97 Room Air 03/31/17 19:36 2.00 Hospital Course Hospital course: Patient had a short hospital course she was admitted after suffering a CVA with catastrophic left sided paralysis. She was unable to communicate and verbalize or swallow so speech therapy was consulted and thickened liquids were recommended to decrease aspiration risk. She was a DO NOT RESUSCITATE prior to admission and was maintained on that order during hospital course. Patient was beginning to recover the ability to verbalize so she was placed on swing bed for therapy and reviewed all medication and transferred patient of that status to await recovery. Labs (last 24 hrs) Laboratory Tests 04/03/17 12:26: Glucometer 103 Microbiology 03/31/17 MRSA Screen - Final, Complete Pending Labs Discharge Home Medications: Active Scripts Active Reported Miralax (Polyethylene Glycol 3350) 17 Gm Powd.pack 17 Gm PO DAILY PRN Metformin HCl 1,000 Mg Tablet 1,000 Mg PO DAILY Aspirin EC (Aspirin) 81 Mg Tablet.dr 81 Mg PO DAILY Gabapentin 300 Mg Capsule 600 Mg PO BID TAKES 2 (300MG) CAPSULES Meloxicam 15 Mg Tablet 15 Mg PO DAILY Losartan Potassium 100 Mg Tablet 100 Mg PO DAILY Bystolic (Nebivolol HCl) 5 Mg Tablet 5 Mg PO HS Amlodipine Besylate 10 Mg Tablet 10 Mg PO DAILY Instructions to patient/family Please see electronic discharge instructions given to patient. Clinical Quality Measures DVT/VTE Risk/Contraindication: Risk Factor Score Per Nursin RFS Level Per Nursing on Admit: 4+=Very High Other: Patient has GI bleed Stroke: Date of last known well: Mar 28, 2017 Symptoms onset unknown: Yes DILMA VINES DO Apr 03, 2017 11:27
--- NOTE | 2017-04-03 11:30 | Occupational Ther Daily Note ---
OT Current Status-Daily Note Subjective Pt sleeping in bed. Pt had difficulty waking, answered most questions with eyes closed. OT/PT co-treat with pt for skilled care. PT worked on bed mobility, LE ROM and transfers. OT worked on ADLs, positioning and UE PROM. Pt knew she had been on ICU then thought she had moved to a different building so did not know where she was. Did know name and that she had a stroke. Mental Status/Objective Patient Orientation: Person, Situation Functional [place] Measure 0=Not Assessed/NA 4=Minimal Assistance 1=Total Assistance 5=Supervision or Setup 2=Maximal Assistance 6=Modified [place] 3=Moderate Assistance 7=Complete [place] Attachments: Orta Catheter, IV ADL-Treatment Pt able to wash face with cloth given to her. Pt max A x2 for bed mobility and transfers. Dependent for toileting. Pt required mod A to sit EOB due to leaning toward L side, pt tends to push with R UE. No LOB backwards or frontwards. After therapy, pt sitting in recliner with call light in reach. Nrsg notified that pt was sitting up and and been incontinent of bowel. All needs met in room. Grooming (FIM): 4 Toileting (FIM): 1 Transfers (B, C, W/C) (FIM): 1 OT Short Term Goals Short Term Goals Transfers (B,C,W/C) (FIM): 3 1=Demonstrate adherence to instructed precautions during ADL tasks. 2=Patient will verbalize/demonstrate understanding of assistive devices/ modifications for ADL. 3=Patient will improve strength/tolerance for activity to enable patient to perform ADL's. OT Secretary Receptionist Goals Mcfp Goals Time Frame: Apr 29, 2017 Eating (FIM): 5 Grooming(FIM): 4 Bathing(FIM): 3 Upper Body Dressing(FIM): 5 Lower Body Dressing(FIM): 3 Toileting(FIM): 3 Toilet/Commode Transfer(FIM): 3 Additional Goals: 2-Verbalize Understanding, 3-ImproveStrength/Manuelito 1=Demonstrate adherence to instructed precautions during ADL tasks. 2=Patient will verbalize/demonstrate understanding of assistive devices/ modifications for ADL. 3=Patient will improve strength/tolerance for activity to enable patient to perform ADL's. OT Education/Plan Problem List/Assessment Pt would benefit from skilled OT to increase her independence in basic self care and to decrease caregiver burden Discharge Recommendations Plan/Recommendations: Continue POC Treatment Plan/Plan of Care Patient would benefit from OT for education, treatment and training to promote independence in ADL's, mobility, safety and/or upper extremity function for ADL' s. Plan of Care: ADL Retraining, Caregiver Training, Functional Mobility, UE Funct Exercise/Act, UE Neuromus Re-Ed/Coord, Visual/Perceptual Retrain Treatment Duration: Apr 29, 2017 Frequency: 5 times per week Estimated Hrs Per Day: .5 hour per day Agreement: Yes Rehab Potential: Poor Time/GCodes Start Time: 10:05 Stop Time: 10:40 Total Time Billed (hr/min): 35 Billed Treatment Time 1 visit-FA 2 (35 min) co-treat 35 min JUAN FRANCISCO SIERRA Apr 03, 2017 11:30
[2017-04-04] MEDS ORDERED: PANTOPRAZOLE 40 MG (PROTONIX) TAB PO SCH (07:00)
--- OUTSIDE RECORDS SUMMARY | 2017-04-04 10:03 | XMS REPORT | Continuity of Care Document ---
Author Author [facility] Organization [facility] Address Unknown Phone Unavailable Allergies Active Description Code Type Severity Reaction Onset Reported/Identified Relationship to Patient Clinical Status Yes simvastatin [id number] Drug Allergy Unknown ALLERGIC TO "ST 09/18/2005 Yes oxycodone [id number] Drug Allergy Unknown N/A 09/21/2005 Yes morphine [id number] Drug Allergy Unknown HIVES 03/04/2012 Yes Penicillins [id number] Drug Allergy Unknown HIVES 03/04/2012 Yes STATINS STATINS Unknown INCREASED LIVER 03/04/2012 Yes sulfamethoxazole [id number] Drug Allergy Unknown NAUSEA, DIARRHE 2013 Yes trimethoprim [id number] Drug Allergy Unknown NAUSEA, DIARRHE 04/01/2013 Medications There is no data. Problems Date Dx Coded Attending Type Code Diagnosis Diagnosed By 03/20/2012 Ot 996.77 OTH COMPLICATIONS DUE TO INTERNAL JOINT 03/20/2012 Ot V43.65 KNEE JOINT REPLACEMENT STATUS 03/21/2012 Ot V54.89 OTHER ORTHOPEDIC AFTERCARE 04/09/2013 JAN BERGER DO Ot 250.00 DIAB CHANA WO COMPL, TYPE II OR UNSPEC TY 04/09/2013 JAN BERGER DO Ot 272.0 PURE HYPERCHOLESTEROLEM 04/09/2013 JAN BERGER DO Ot 272.4 HYPERLIPIDEMIA NEC/NOS 04/09/2013 JAN BERGER DO Ot 285.9 ANEMIA NOS 04/09/2013 JAN BERGER DO Ot 356.9 IDIO PERIPH NEURPTHY NOS 04/09/2013 JAN BERGER DO Ot 401.9 HYPERTENSION NOS 04/09/2013 JAN BERGER DO Ot 414.01 CORONARY ATHEROSCLEROSIS OF [place] CORON 04/09/2013 JAN BERGER DO Ot 564.00 UNSPEC CONSTIPATION 04/09/2013 JAN BERGER DO Ot 715.35 LOC OSTEOARTH NOS-PELVIS 04/09/2013 SATTERLY DO, JAN F Ot 729.1 MYALGIA AND MYOSITIS NOS 04/09/2013 JAN BERGER DO Ot V04.81 ND FOR PROPHYLACTIC VACCIN AND INOCULATI 05/27/2014 Ot 709.9 12/15/2014 RICCARDO BENNETT, JANETT Cortez Ot Z12.31 03/27/2016 Ot 722.52 LUMB/ LUMBOSAC DISC DEGEN 03/27/2016 Ot 728.87 MUSCLE WEAKNESS (GENERALIZED) 03/27/2016 Ot 793.80 UNSPEC ABNORMAL MAMMOGRAM 03/27/2016 Ot V76.12 OTH SCREEN MAMMO-MALIGN NEOPLASM OF [place] 03/27/2016 Ot 793.80 UNSPEC ABNORMAL MAMMOGRAM 03/27/2016 Ot V76.12 OTH SCREEN MAMMO-MALIGN NEOPLASM OF [place] 03/27/2016 Ot 786.2 COUGH 03/27/2016 Ot 786.2 COUGH 03/27/2016 Ot 793.19 OTHER NONSPECIFIC ABNORMAL FINDING OF [place] 03/27/2016 Ot 719.46 JOINT PAIN-L /LEG 03/27/2016 Ot 722.52 LUMB/ LUMBOSAC DISC DEGEN 03/27/2016 Ot V76.12 OTH SCREEN MAMMO-MALIGN NEOPLASM OF [place] 03/27/2016 Ot 250.01 DIAB CHANA WO COMPL, TYPE I [JUVENILE TYP 03/27/2016 Ot 729.5 PAIN IN LIMB 03/27/2016 Ot 790.1 ELEVATED SEDIMENT RATE 03/27/2016 Ot 790.92 COAGULATION PROFILE, ABNORMAL 03/27/2016 Ot 996.77 OTH COMPLICATIONS DUE TO INTERNAL JOINT 03/27/2016 Ot V43.65 KNEE JOINT REPLACEMENT STATUS 03/27/2016 Ot V72.63 PRE- PROCEDURAL LABORATORY EXAMINATION 03/27/2016 Ot V72.81 EXAM-PRE- OPERATIVE CARDIOVASCULAR 03/27/2016 Ot V74.8 SCREEN- BACTERIAL DIS NEC 03/27/2016 Ot 397.0 TRICUSPID VALVE DISEASE 03/27/2016 Ot 414.00 CORON ATHEROSCLER NOS TYPE VESSEL, NATIV 03/27/2016 LINDSEY BENNETT MD Ot 562.10 DIVERTICULOSIS COLON (W/O MENT OF HEMORR 03/27/2016 LINDSEY BENNETT MD Ot 575.8 DIS OF GALLBLADDER NEC 03/27/2016 LINDSEY BENNETT MD Ot 753.10 CYSTIC KIDNEY DISEASE, UNSPECIFIED 03/27/2016 LINDSEY BENNETT MD Ot V81.5 SCREEN FOR NEPHROPATHY 03/27/2016 [facility] Ot 715.35 LOC OSTEOARTH NOS-PELVIS 03/27/2016 [facility] Ot 791.9 ABN URINE FINDINGS NEC 03/27/2016 [facility] Ot V72.63 PRE-PROCEDURAL LABORATORY EXAMINATION 03/27/2016 JAN BERGER DO Ot V72.81 [id number] CARDIOVASCULAR 03/27/2016 [facility] JAN LOFTON Ot V72.83 EXAM PRE-OPERATIVE NEC 03/27/2016 [facility] JAN LOFTON Ot V74.8 SCREEN-BACTERIAL DIS NEC 03/27/2016 [facility] Ot 715.35 LOC OSTEOARTH NOS-PELVIS 03/27/2016 [facility] Ot V72.63 PRE-PROCEDURAL LABORATORY EXAMINATION 03/27/2016 [facility] Ot V74.8 SCREEN-BACTERIAL DIS NEC 03/27/2016 RICCARDO BENNETT, JANETT Cortez Ot 786.09 RESPIRATORY ABNORM NEC 03/27/2016 MANAV RUIZ Ot 272.4 HYPERLIPIDEMIA NEC/NOS 03/27/2016 MANAV RUIZ Ot 397.0 TRICUSPID VALVE DISEASE 03/27/2016 MANAV RUIZ Ot 401.9 HYPERTENSION NOS 03/27/2016 MANAV RUIZ Ot 424.0 MITRAL VALVE DISORDER 03/27/2016 MANAV RUIZ Ot 786.09 RESPIRATORY ABNORM NEC 03/27/2016 JANETT GU MD Ot V76.12 OT SCREEN MAMMO-MALIGN NEOPLASM OF [place] 03/27/2016 Ot 709.9 SKIN DISORDER NOS 03/27/2016 JANETT GU MD Ot Z12.31 ENCNTR SCREEN MAMMOGRAM FOR MALIGNANT NE 03/29/2016 JANETT GU MD Ot Z12.31 ENCNTR SCREEN MAMMOGRAM FOR MALIGNANT NE 03/29/2016 JANETT GU MD Ot Z12.31 ENCNTR SCREEN MAMMOGRAM FOR MALIGNANT NE 04/20/2016 JANETT GU MD, Ot Z12.31 ENCNTR SCREEN MAMMOGRAM FOR MALIGNANT NE 10/24/2016 KATHERYN MCKEON MD Ot E78.2 MIXED HYPERLIPIDEMIA 10/24/2016 KATHERYN MCKEON MD, Ot I10 ESSENTIAL (PRIMARY) HYPERTENSION 10/24/2016 KATHERYN MCKEON MD Ot R94.31 ABNORMAL ELECTROCARDIOGRAM [ECG] [EKG] 10/31/2016 KATHERYN MCKEON MD Ot E78.2 MIXED HYPERLIPIDEMIA 10/31/2016 KATHERYN MCKEON MD, Ot I10 ESSENTIAL (PRIMARY) HYPERTENSION 10/31/2016 KATHERYN MCKEON MD, Ot R94.31 ABNORMAL ELECTROCARDIOGRAM [ECG] [EKG] Procedures Code Description Performed By Performed On 00.81 LUKAS OF KNEE REPLACEMENT, TIBIAL COMPON 03/17/2012 00.82 LUKAS OF KNEE REPLACEMENT, FEMORAL COMPO 03/17/2012 83.64 OTHER SUTURE OF TENDON 03/17/2012 00.74 HIP BEARING SURFACE, METAL- ON-POLYETHYLE 04/06/2013 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 Encounters ACCT No. Visit Date/Time Discharge Status Pt. Type Provider Facility Loc./Unit Complaint [id number] 10/03/2016 08:07:00 10/03/2016 23:59:59 CLS Outpatient KATHERYN MCKEON MD [facility] CARD R94.31 ABNORMAL EKG [id number] 07/11/2016 07:38:00 07/11/2016 23:59:59 CLS Outpatient KATHERYN MCKEON MD [facility] CARD R94.31,I10,E78.2 [id number] 03/28/2016 09:41:00 03/28/2016 23:59:59 CLS Outpatient JANETT GU MD [facility] RAD SCREENING [id number] 11/25/2014 10:20:00 11/25/2014 23:59:59 CLS Outpatient JANETT GU MD [facility] RAD SCREENING [id number] 09/17/2013 14:56:00 09/17/2013 23:59:59 CLS Outpatient JANETT GU MD [facility] RAD SCREENING [id number] 08/19/2013 13:47:00 08/19/2013 23:59:59 CLS Outpatient MANAV RUIZ [facility] CARD HTN,HLP [id number] 07/09/2013 10:16:00 07/09/2013 23:59:59 CLS Outpatient JANETT GU MD [facility] RAD DYSPNEA [id number] 04/06/2013 10:30:00 04/09/2013 16:00:00 DIS Inpatient SANTOSHTERJAN CHAMBERS DO [facility] SURGICAL LEFT HIP DJD [id number] 04/01/2013 11:46:00 04/01/2013 23:59:59 CLS Outpatient SANTOSHTERJAN CHAMBERS DO [facility] PREOP LEFT HIP DJD [id number] 03/04/2013 12:01:00 03/04/2013 23:59:59 CLS Outpatient SANTOSHTERJAN CHAMBERS DO [facility] PREOP LEFT HIP DJD [id number] 08/29/2012 12:28:00 08/29/2012 23:59:59 CLS Outpatient LINDSEY BENNETT MD [facility] RAD LT KIDNEY LESION [id number] 04/02/2017 08:36:00 Document Registration [id number] 05/05/2014 13:41:00 Document Registration [id number] 03/21/2012 13:48:00 Document Registration [id number] 03/17/2012 08:16:00 Document Registration [id number] 03/07/2012 09:44:00 Document Registration [id number] 03/04/2012 09:46:00 Document Registration [id number] 03/04/2012 09:39:00 Document Registration [id number] 02/08/2012 14:48:00 Document Registration [id number] 06/12/2011 13:24:00 Document Registration [id number] 04/20/2011 13:22:00 Document Registration [id number] 12/20/2010 10:56:00 Document Registration [id number] 12/07/2010 12:23:00 Document Registration [id number] 11/22/2010 10:14:00 Document Registration
--- OUTSIDE RECORDS SUMMARY | 2017-04-04 10:19 | XMS REPORT | Continuity of Care Document ---
Author Author [facility] Organization [facility] Address Unknown Phone Unavailable Allergies Active Description Code Type Severity Reaction Onset Reported/Identified Relationship to Patient Clinical Status Yes simvastatin [id number] Drug Allergy Unknown ALLERGIC TO "ST 09/18/2005 Yes oxycodone [id number] Drug Allergy Unknown N/A 09/21/2005 Yes morphine [id number] Drug Allergy Unknown HIVES 03/04/2012 Yes Penicillins [id number] Drug Allergy Unknown HIVES 03/04/2012 Yes STATINS STATINS Unknown INCREASED LIVER 03/04/2012 Yes sulfamethoxazole [id number] Drug Allergy Unknown NAUSEA, DIARRHE 2013 Yes trimethoprim [id number] Drug Allergy Unknown NAUSEA, DIARRHE 04/01/2013 Medications [...] BERGER DO Ot 414.01 CORONARY ATHEROSCLEROSIS OF [place] CORON 04/09/2013 JAN BERGER DO Ot 564.00 [...] MD Ot V81.5 SCREEN FOR NEPHROPATHY 03/27/2016 [facility] Ot 715.35 LOC OSTEOARTH NOS-PELVIS 03/27/2016 [facility] DO Ot 791.9 ABN URINE FINDINGS NEC 03/27/2016 [facility] Ot V72.63 PRE-PROCEDURAL LABORATORY EXAMINATION 03/27/2016 JAN BERGER DO Ot V72.81 [id number] CARDIOVASCULAR 03/27/2016 [facility] JAN LOFTON Ot V72.83 EXAM PRE-OPERATIVE NEC 03/27/2016 [facility] JAN LOFTON Ot V74.8 SCREEN-BACTERIAL DIS NEC 03/27/2016 [facility] Ot 715.35 LOC OSTEOARTH NOS-PELVIS 03/27/2016 [facility] DO Ot V72.63 PRE-PROCEDURAL LABORATORY EXAMINATION 03/27/2016 [facility] DO Ot V74.8 SCREEN-BACTERIAL DIS NEC [...] Status Pt. Type Provider Facility Loc./Unit Complaint [id number] 10/03/2016 08:07:00 10/03/2016 23:59:59 CLS Outpatient KATHERYN MCKEON MD [facility] CARD R94.31 ABNORMAL EKG [id number] 07/11/2016 07:38:00 07/11/2016 23:59:59 CLS Outpatient KATHERYN MCKEON MD [facility] CARD R94.31,I10,E78.2 [id number] 03/28/2016 09:41:00 03/28/2016 23:59:59 CLS Outpatient JANETT GU MD [facility] RAD SCREENING [id number] 11/25/2014 10:20:00 11/25/2014 23:59:59 CLS Outpatient JANETT GU MD [facility] RAD SCREENING [id number] 09/17/2013 14:56:00 09/17/2013 23:59:59 CLS Outpatient JANETT GU MD [facility] RAD SCREENING [id number] 08/19/2013 13:47:00 08/19/2013 23:59:59 CLS Outpatient MANAV RUIZ [facility] CARD HTN,HLP [id number] 07/09/2013 10:16:00 07/09/2013 23:59:59 CLS Outpatient JANETT GU MD [facility] RAD DYSPNEA [id number] 04/06/2013 10:30:00 04/09/2013 16:00:00 DIS Inpatient SANTOSHTERJAN CHAMBERS DO [facility] SURGICAL LEFT HIP DJD [id number] 04/01/2013 11:46:00 04/01/2013 23:59:59 CLS Outpatient SANTOSHTERJAN CHAMBERS DO [facility] PREOP LEFT HIP DJD [id number] 03/04/2013 12:01:00 03/04/2013 23:59:59 CLS Outpatient SANTOSHTERJAN CHAMBERS DO [facility] PREOP LEFT HIP DJD [id number] 08/29/2012 12:28:00 08/29/2012 23:59:59 CLS Outpatient LINDSEY BENNETT MD [facility] RAD LT KIDNEY LESION [id number] 04/02/2017 08:36:00 Document Registration [id number] 05/05/2014 13:41:00 Document Registration [id number] 03/21/2012 13:48:00 Document Registration [id number] 03/17/2012 08:16:00 Document Registration [id number] 03/07/2012 09:44:00 Document Registration [id number] 03/04/2012 09:46:00 Document Registration [id number] 03/04/2012 09:39:00 Document Registration [id number] 02/08/2012 14:48:00 Document Registration [id number] 06/12/2011 13:24:00 Document Registration [id number] 04/20/2011 13:22:00 Document Registration [id number] 12/20/2010 10:56:00 Document Registration [id number] 12/07/2010 12:23:00 Document Registration [id number] 11/22/2010 10:14:00 Document Registration
[2017-04-05] MEDS ORDERED: AMLO5TAB2 PO (10:11)
[2017-04-05] MEDS ORDERED: ACET-77 PO (10:11)
[2017-04-05] MEDS ORDERED: PANT40TA3 PO (10:11)
[2017-04-05] MEDS ORDERED: ACHD5005 PO (10:11)
[2017-04-05] MEDS ORDERED: ATOR10TA PO (10:13)
== END 2017-04-03 12:04 | disposition swing bed (61) | DRG 65 ==
LOC: EDUNIT# 14:56 → ER 14:58 → ICU 16:40 → 4TH 04-02 19:15
PROVIDERS: ADMIT Family Medicine; ATTEND Family Medicine
DX: I63.9 Cerebral infarction, unspecified (principal); G81.94 Hemiplegia, unspecified affecting left nondominant side; R29.810 Facial weakness; R47.81 Slurred speech; K92.2 Gastrointestinal hemorrhage, unspecified; E87.1 Hypo-osmolality and hyponatremia; E87.2 Acidosis; Z66 Do not resuscitate; Z23 Encounter for immunization; E11.9 Type 2 diabetes mellitus without complications; R29.718 NIHSS score 18; D64.9 Anemia, unspecified; I10 Essential (primary) hypertension; R53.81 Other malaise; M48.00 Spinal stenosis, site unspecified; Z79.84 Long term (current) use of oral hypoglycemic drugs; Z87.891 Personal history of nicotine dependence
CPT/HCPCS: 36415; 70450; 71045; 80048; 80053; 80061; 81000; 82962; 83735; 84100; 84484; 85014; 85018; 85025; 85379; 85610; 85730; 86850; 86900; 86901; 86920; 87081; 93005; 93041; 93306; 93880; 96360; 96361

== ENCOUNTER 2017-04-03 11:28 | Inpatient (IN) | payer MEDICARE ==
[~2017-04-03] VITALS: Ht 162.6 cm; Wt 73.1 kg
[~2017-04-03 11:28] MED LIST changes: +AMLO10TA2 PO; +ASPI-983 PO; +GABA-488 PO; +LOSA100T28 PO; +MELO15TA39 PO; +METF1000 PO; +NEBI5TAB8 PO; +POLY17PO6 PO
[2017-04-03 12:00] VITALS: BP 164/72
[2017-04-03] MEDS ORDERED: ACETAMINOPHEN 500 MG TAB (TYLENOL) PO PRN (12:15)
--- NOTE | 2017-04-03 14:43 | Occupational Therapy Eval ---
OT Evaluation-General/PLF Medical Diagnosis Admission Date Apr 03, 2017 at 12:05 Medical Diagnosis: R thalamus and midbrain CVA Onset Date: Mar 31, 2017 Therapy Diagnosis Therapy Diagnosis: decr self care, decr funct use L Ue, decr funct mob, decr act satnam, decr vis Height/Weight Height (Feet): 5 Height (Inches): 4.00 Weight (Pounds): 167 Weight (Ounces): 1.0 Referral Physician: Naty Referral Reason: Evaluation/Treatment Medical History Pertinent Medical History: Arthritis, DM Additional Medical History cataract surgery, carpal tunnel surgery, back surgery x2, fx ankle, spinal stenosis, failed L knee replacement Current History Grandsons found her at home in bed, L sided weakness, L facial droop Reviewed History: Yes Social History Current Living Status: Alone Grandsons check on her regularly ADL-Prior Level of Function ADL PLOF Comments Per acute OT eval, pt and son reported that she had been able to manage all of her basic self care needs. She cooked and cleaned and only needed help to bring in the groceries. She still drove. Drive Self: Yes OT Current Status Subjective Pt seen in room, up in bed, agreeable to OT. Pain reported 0/10 Appearance Alert, cooperative. Able to understand most of what she was saying. Able to turn head toward L side voluntarily but not for full visual field Mental Status/Objective Patient Orientation: Person, Place ("They say it's [facility]") Attachments: Orta Catheter, IV Current Glasses/Contacts: Yes Dentures/Partials: Yes (not in) Hand Dominance: Right Upper Extremity ROM R UE grossly WFL actively. L UE grossly WFL bilat passively. Unable to observe any movement in L UE although acute care chart indicated trace L shoulder extension and trace L thumb adduction on one occasion Upper Extremity Sensation Pt was able to identify touch location on L UE She was able to turn head some to the L side and track visually past midpoint. Appears to have visual field deficit L side ADL-Treatment ADL-Current Pt has needed assistance to bring food to her mouth but was able to close lips around straw. She declined a drink today. She has been able to swab mouth out with swab but dentures were not in place. She washed her face with setup, including L side of face, with skilled cues. Earlier today, pt was dependant with toileting and was incontinent of BM, requiring two person assist. She was also max A x 2 people for bed mobility and was able to sit mod assist EOB but pushed toward the left ("pusher syndrome") Functional [place] Measure 0=Not Assessed/NA 4=Minimal Assistance 1=Total Assistance 5=Supervision or Setup 2=Maximal Assistance 6=Modified [place] 3=Moderate Assistance 7=Complete IndependenceIRFPAI Quality Coding Scale 6 Independent with activity with or without an assistive device 5 Patient requires set up or clean up by helper. Patient completes activity by themselves 4 Supervision or touching assist (CGA). [place] provide cues , steadying assist 3 The helper provides less than half the effort to complete the activity 2 The helper provides more than half the effort to complete the activity 1 Dependent. The helper does all the effort to complete an activity 7 Patient refused to complete or attempt activity 9 The patient did not perform the activity before the current illness or injury 88 Not attempted due to Medical conditions or safety concerns Eating (FIM): 2 Eating (QC): 2 Grooming (FIM): 5 (Did not include cleaning teeth and combing hair) Oral Hygiene (QC): 88 (Dentures not in) Toileting (FIM): 1 Toileting Hygiene (QC): 1 grandsons came into see her and she was able to identify each one by name and share some information about them. OT educated them to sometimes stand on her L side to encourage her to turn head toward L and look visually to L. She was unable to see grandson in far L visual field Education OT Patient Education: Correct positioning, Purpose of tx/functional activities , Rehab process Teaching Recipient: Patient, Family Teaching Methods: Discussion Response to Teaching: Verbalize Understanding OT Short Term Goals Short Term Goals Time Frame: Apr 17, 2017 Eating(FIM): 3 Bathing(FIM): 3 Bathing Location: L Arm, L Upper Leg, R Upper Leg, Chest, Abdomen Upper Body Dressing(FIM): 3 Additional Short Term Goals: 2-Verbalize Understanding, 3-ImproveStrength/Manuelito 1=Demonstrate adherence to instructed precautions during ADL tasks. 2=Patient will verbalize/demonstrate understanding of assistive devices/ modifications for ADL. 3=Patient will improve strength/tolerance for activity to enable patient to perform ADL's. OT Usp Goals Usp Goals Time Frame: May 01, 2017 Eating (FIM): 5 Eating (QC): 5 Groomin (incl teeth and hair) Oral Hygiene (QC): 4 Bathing(FIM): 3 Upper Body Dressing(FIM): 5 Lower Body Dressing(FIM): 3 Toileting(FIM): 3 Toileting Hygiene (QC): 3 Toilet/Commode Transfer(FIM): 3 Toilet/Commode Transfer (QC): 3 Additional Goals: 2-Verbalize Understanding, 3-ImproveStrength/Manuelito 1=Demonstrate adherence to instructed precautions during ADL tasks. 2=Patient will verbalize/demonstrate understanding of assistive devices/ modifications for ADL. 3=Patient will improve strength/tolerance for activity to enable patient to perform ADL's. OT Education/Plan Problem List/Assessment Assessment: Decreased Activ Tolerance, Decreased Safety Aware, Decreased UE Strength, Dependent Transfers, Impaired Bed Mobility, Impaired Coordination, Impaired Self-Care Skills, Restricted Funct UE ROM, Visual-Perceptual Deficit Pt would benefit from skilled OT to increase her independence in basic self care and to decrease caregiver burden Discharge Recommendations Plan/Recommendations: Continue POC Therapy D/C Recommendations: Half-Way (TCU/NH) (OT) Treatment Plan/Plan of Care Treatment,Training & Education: Yes Patient would benefit from OT for education, treatment and training to promote independence in ADL's, mobility, safety and/or upper extremity function for ADL' s. Plan of Care: ADL Retraining, Caregiver Training, Functional Mobility, UE Funct Exercise/Act, UE Neuromus Re-Ed/Coord, Visual/Perceptual Retrain Treatment Duration: Apr 03, 2017 Frequency: 5 times per week Estimated Hrs Per Day: .5 hour per day Agreement: Yes Rehab Potential: Guarded Time/GCodes Start Time: 13:40 Stop Time: 13:55 Total Time Billed (hr/min): 15 Billed Treatment Time visit, 15 minutes evaluation high intensity EMI TODD OT Apr 03, 2017 14:43
--- NOTE | 2017-04-03 15:12 | Physical Therapy Evaluation ---
PT Evaluation-General Medical Diagnosis Admission Date Apr 03, 2017 at 12:05 Medical Diagnosis: R thalamus and midbrain CVA Onset Date: Mar 31, 2017 Therapy Diagnosis Therapy Diagnosis: Impaired functional mobility, activity tolerance, balance, and strength Height/Weight Height (Feet): 5 Height (Inches): 4.00 Weight (Pounds): 167 Weight (Ounces): 1.0 Precautions Precautions/Isolations: Contact Isolation, Fall Prevention, Standard Precautions Referral Physician: Naty Reason for Referral: Evaluation/Treatment Medical History Pertinent Medical History: Arthritis, DM Additional Medical History HTN, spinal stenosis, left knee replacement, cataracts, carpal tunnel surg, back surg x2 Current History Pt had a CVA causing left hemiparesis, also had a recent back surgery Reviewed History: Yes Social History Home: Single Level Current Living Status: Alone Entry Into Home: Stairs With Railing PT Steps Into Home: 4 PT Steps Inside Home: 0 Pt may be going to [facility] upon DC. Prior/Core FIM Prior Level of Function Functional [place] Measure 0=Not Assessed/NA 4=Minimal Assistance 1=Total Assistance 5=Supervision or Setup 2=Maximal Assistance 6=Modified [place] 3=Moderate Assistance 7=Complete [place] Bed Mobility: 6 Transfers (B,C,W/C) (FIM): 6 Gait: 6 Locomotion: 6 Family reports use of FWW for ambulation PT Evaluation-Current Subjective Pt is laying in bed pre eval with no complaints of pain. Pt agrees to PT. Pain Numeric Pain Scale: 0-No Pain Location: No Pain Reported Pt/Family Goals Nothing reported Objective Patient Orientation: Person, Place, Time Attachments: Orta Catheter, IV ROM/Strength ROM Lower Extremities WNL franklin Strenght Lower Extremities RLE: Grossly 4/5 LLE: flaccid Integumentary/Posture Bladder Incontinence: Orta Cath Neuromuscular (Tone, Coordination, Reflexes) Patient has increased tone in her left arm. Sensory Vision: Unable to Assess Hearing: Functional Hand Dominance: Right Sensation Right Lower Extremit: Intact Sensation Left Lower Extremity: Intact Transfers Functional [place] Measure 0=Not Assessed/NA 4=Minimal Assistance 1=Total Assistance 5=Supervision or Setup 2=Maximal Assistance 6=Modified [place] 3=Moderate Assistance 7=Complete [place] Transfers (B, C, W/C) (FIM): 1 Scootin Rollin Supine to/from Sit: 1 Sit to/from Stand: 0 bed t/f WC(FIM only if WC use): 0 Sit to Lying (QC): 1 Lying to Sitting/Side of Bed(Q: 1 Sit to Stand (QC): 88 Chair/[id number]-[id number] Xfer(QC): 88 Total A x2 for all bed mobility. Gait Does the Patient Walk?: No and Walking Goal NOT indicated Wheelchair Training Does the Pt Use a Wheelchair?: No Balance Sitting Static: Poor Sitting Dynamic: Poor Treatment Pt participated in bed mobility and worked on sitting balance. She needed assist with sitting balance and stabilizing her left arm. She tended to lean backwards or forwards quickly on occasion. Without her left arm support she pushes to the left side. Assessment/Needs Due to flaccidity of the LUE and LLE as well as impaired balance, pt will benefit from PT services. Pt is able to identify place and date when prompted. Rehab Potential: Poor PT Short Term Goals Short Term Goals Time Frame: Apr 10, 2017 Transfers (B,C,W/C) (FIM): 2 PT Plan Problem List Problem List: Activity Tolerance, Functional Strength, Safety, Balance, Gait, Transfer, Bed Mobility, ROM Treatment/Plan Treatment Plan: Continue Plan of Care Treatment Plan: Bed Mobility, Education, Functional Activity Manuelito, Functional Strength, Group Therapy, Gait, Safety, Therapeutic Exercise, Transfers Treatment Duration: Apr 10, 2017 Frequency: 6 times per week Estimated Hrs Per Day: .25 hour per day (15-30 min) Patient and/or Family Agrees t: Yes Safety Risks/Education Patient Education: Correct Positioning, Safety Issues Teaching Recipient: Patient, Family Teaching Methods: Demonstration, Discussion Response to Teaching: Unable to Return Demonstration, Reinforcement Needed Discharge Recommendations Plan Patient will perform bed mobility and transfer training, balance and endurance training, functional strengthening, and education, to improve functional mobility and independence at home. Therapy D/C Recommendations: Home w/ Family Support, Custodial (TCU/NH) Time/GCodes Time In: 1445 Time Out: 1515 Total Billed Treatment Time: 30 Total Billed Treatment 1 visit 30 min SUNNY LERMA PT Apr 03, 2017 15:11
[2017-04-03 18:00] VITALS: BP 162/72
[2017-04-03] MEDS: MUPIROCIN 2% OINT 22 GM (BACTROBAN) TUBE NSEACH SCH ×2 (18:10→21:10)
[2017-04-03] MEDS: inSUlin (REGULAR) HUMAN 1 UNIT/0.01 ML (CHARGE PER UNIT) SC SCH (18:10)
[2017-04-04] MEDS: inSUlin (REGULAR) HUMAN 1 UNIT/0.01 ML (CHARGE PER UNIT) SC SCH ×4 (00:40→18:00)
[2017-04-04 06:00] VITALS: BP 149/67
[2017-04-04] MEDS: PANTOPRAZOLE 40 MG (PROTONIX) TAB PO SCH (06:31)
[2017-04-04] MEDS: MUPIROCIN 2% OINT 22 GM (BACTROBAN) TUBE NSEACH SCH ×2 (09:00→21:40)
--- NOTE | 2017-04-04 10:38 | Progress Note-Hospitalist ---
Progress Note Progress Notes/Assess & Plan Date Seen 04/04/17 Time Seen by Provider: 09:45 Diagonsis/Assessment & Plan Patient is complaining of left hip pain the side where she is flaccid so will obtain x-ray per PT request of which I agree Patient is not improved at all with her ability to communicate verbally and completely flaccid on the left side Prognosis becomes more more poor as the days progress Bowels are not moving yet Will discontinue catheter Blood pressure is mildly elevated so we will initiate treatment for that Start MiraLAX No fever, vital signs stable except for mild blood pressure elevation Left-sided completely flaccid Unable to really verbally communicate at any length she becomes garbled Regular rate and rhythm, clear to auscultation bilaterally No edema Assessment: Catastrophic stroke with left-sided paralysis Hypertension Dysphagia able to accommodate thicken liquids Left hip pain obtaining x-ray to rule out fracture Plan: Clonidine along with Norvasc Hip xray Poor prognosis Needs NHP soon since recovery appears to be limited DILMA VINES DO Apr 04, 2017 10:38
[2017-04-04] MEDS ORDERED: cloNIDine 0.1 MG (CATAPRES) TAB PO PRN (10:45)
--- NOTE | 2017-04-04 10:56 | ST Cognitive Linguistic Eval ---
Speech Evaluation-General Medical Diagnosis R Thalamus and Midbrain CVA Onset Date: Mar 31, 2017 Therapy Diagnosis Therapy Diagnosis: Moderate Receptive/Expressive Aphasia Precautions Precautions/Isolations: Standard Precautions Referral Referring Physician: Dr. Kelly Alfonso Reason for Referral: Evaluation/Treatment Speech, Language Evaluation Medical History Pertinent Medical History: Arthritis, DM Current History The patient was admitted with a diagnosis of CVA, as well as, GI bleed. The patient was previously evaluated by Speech Pathology and found to have moderate dysarthria, as well as, mild aphasia (receptive and expressive). Reviewed History: Yes Social History Current Living Status: Alone Speech PLF-Current Status Prior Level of Function The patient was unable to provide prior level of function due to aphasia. Subjective The patient was laying in bed upon entrance. The patient required increased verbal prompting on this date for participation and response. The patient was repositioned upright in attempts to improve alertness. The decrease in the patient's receptive and expressive language was shared and discussed with the patient's RN. To note, the patient demonstrates cervical extension requiring a pillow for improved posture. Language Eval: Auditory Comprehends Simple Yes/No Ques: Mild (The patient was able to answer simple yes and no questions, however, demonstrated poor accuracy with abstract yes and no questions.) Indent/Objects Multiple [place]: Functional Ident/Pics in Multiple [place]: Functional Follows 1-Step Commands: Functional Follows Complex Directions: Moderate Follows General Conversations: Moderate Language Eval: Verbal Language Completes Spontaneous Greeting: Functional Produces Auto, Serial Info: Functional Imitates Simple Words/Phrases: Functional Word Finding: Moderate Requests Basic Needs: Functional (The patient independently requested replacement of blanket over her legs.) States Basic Personal Info: Functional While the patient answered questions appropriately, her response time has increased in comparison to the previous day. Additionally, the patient's rarely completes eye contact and consistently demonstrates left neglect. Cognitive Patient Orientation The patient was independently oriented to name, month, year, and city. Objective Oral Motor/Speech Production The patient demonstrated an overt left facial droop resulting in reduced left sided labial retraction and decreased left sided protrusion. Imprecise articulation is consistently noted, which has increased on this date. At this time, the patient demonstrated moderate dysarthria. Impression The patient demonstrated moderate dysarthria consistent with flaccid type, as well as, moderate expressive and receptive aphasia. The patient's deficits have increased on this date in comparison to the prior day, however, the patient does report high fatigue. This information was shared with the patient's RN. Speech Short Term Goals Short Term Goals Short Term Goals 1. The patient will complete two step, simple commands with 80% accuracy and moderate clinician cueing. 2. The patient will demonstrate 70% accuracy with structured word finding activities with moderate clinician cueing. 3. The patient will accurately sequence ADL activities with 70% accuracy and moderate clinician cueing. Time Frame-STG: Five Days Speech Intermediate Goals Intermediate Goals 1. The patient will demonstrate improved expressive and receptive communication for increased function and safety with daily ADL's. Time Frame: One Week Speech-Plan Treatment Plan Speech Therapy Treatment Plan: Continue Plan of Care Continue skilled speech pathology to target functional expressive and receptive communication. Treatment Duration: Apr 11, 2017 Frequency: 3 times per week Estimated Hrs Per Day: .25 hour per day Rehab Potential: Poor Safety Risks/Education Teaching Recipient: Patient Teaching Methods: Discussion Response to Teaching: Reinforcement Needed Education Topics Provided: Results, Recommendations, Plan of Care Discharge Recommendations [facility] (TCU/NH) Time Speech Therapy Time In: 08:45 Speech Therapy Time Out: 09:00 Total Billed Time: 15 Billed Treatment Time 1, MARIA ELENA HIGH Apr 04, 2017 10:56
--- NOTE | 2017-04-04 10:57 | ST Dysphagia Evaluation ---
Speech Evaluation-General Medical Diagnosis R Thalamus and Midbrain CVA Onset Date: Mar 31, 2017 Therapy Diagnosis Therapy Diagnosis: Moderate Oropharyngeal Dysphagia Precautions Precautions/Isolations: Standard Precautions Referral Referring Physician: Dr. Kelly Alfonso Reason for Referral: Evaluation/Treatment Clinical Bedside Swallowing Evaluation Medical History Pertinent Medical History: Arthritis, DM Current History The patient was recently admitted to [facility] following a CVA. Upon admission, the patient was found to have a GI bleed. The speech pathologist evaluated the patient's swallowing function while she was under acute care and recommended pureed consistencies with nectar-thick liquids. Reviewed History: Yes Social History Current Living Status: Alone Speech PLF/Current-Dysphagia Prior Level of Function The patient was unable to provide prior functional history due to her aphasia. Subjective The patient was laying in bed, with increased cervical extension noted. With aid of the patient's RN, the patient was repositioned to a sitting position with pillows placed behind her neck to keep her head in a neutral and safe position for swallowing. The patient was agreeable to participation, however, the RN stated the patient has not consumed much PO intake over the past 24 hours. To note, Jell-O, a thin liquid, was found at bedside. The speech pathologist disposed of this consistency. Cognitive Status Patient Orientation: Person, Place, Situation While the patient remained oriented, she appeared more lethargic on this date with increased response time necessary for appropriate answers. Oral Motor Skills Dentition: Edentalous (The patient's dentures were at bedside, however, she refused placement by the clinician.) Current Food Consistancy: Pureed, [place] Liquids Ability to Follow Directions: Fair Oral Expression Ability: Moderate Impairment Voice Voice Phonatory-Based Quality: Breathy, Weak Voice Pitch: Normal Voice Loudness: Moderately Soft/Quiet Face Facial Symmetry: Symmetrical (Overt left facial droop present at baseline.) Oral-Facial Assessment Oral-Facial Dentition: Normal Labial Seal Description: Droops Left Smile: Droops Right Puff Cheeks: Reduced Strength (Left) Lingual Protrusion: Abnormal (Slight left deviation of tongue was noted upon protrusion.) Lingual ROM: Abnormal (Redcued lateral range of motion, bilaterally.) Lingual Strength: Abnormal (Reduced left lingual strength.) Volitional Dry Swallow: No Voluntary Cough: No Can Clear Throat Volitionally: No Dysphagia Evaluation Consistencies Presented: [place] Thick Liquid, Pureed Additional consistencies deferred due to fatigue. Oral Phase: Anterior Spillage, Oral Residue, Left Pocketing, Reduced Oral Transit The patient demonstrated delayed posterior transfer of bolus material, requiring consistent verbal prompting from clinician for initiation. This is a change in previous sessions where the patient may have demonstrated a minimal delay, however, did not display any oral holding. Additionally, anterior bolus loss was noted of nectar-thick liquids via spoon. Left pocketing was visualized with puree consistencies. The material was cleared with a subsequent drink of nectar-thick liquid. Pharyngeal Phase: Multiple Swallow Attempts, Reduced Laryngeal Elevation, Delayed Swallow - A delayed swallow response was noted with all consistencies provided, as well as, reduced laryngeal elevation. - No signs/symptoms of aspiration were demonstrated with multiple boluses of pureed consistencies and nectar-thick liquids. The patient demonstrates increased fatigue and reduced responsiveness on this date. This information was shared with the patient's RN. Dietary Recommendations: Pureed Liquid Recommendations: [place] Consistancy Swallowing Precautions: Alternate Liquids/Solids, Oral Supervision Staff, Oral Supervision Caregiver, Pocketing, Small Bites and Sips, Sitting 90 Degrees 30 Post Intake, Left Tongue Sweep Dysphagia Evaluation Summary The patient demonstrated moderate oropharyngeal dysphagia characterized by reduced lingual and labial range of motion and strength, delayed pharyngeal onset of swallowing in the presence of bolus material, and a poorly coordinated overall swallow. The patient required increased verbal prompting for completion of the evaluation. Barriers to Learning Increased Fatigue Speech Short Term Goals Short Term Goals Short Term Goals 1. The patient will tolerate trials of the least restrictive consistency without signs/symptoms of aspiration or laryngeal penetration. Time Frame-STG: Three Days Speech Perioperative Tech Goals Perioperative Tech Goals 1. The patient will tolerate the least restrictive diet without signs/symptoms of aspiration or laryngeal penetration. Time Frame: One Week Speech-Plan Treatment Plan Speech Therapy Treatment Plan: Continue Plan of Care Continue skilled speech pathology to target swallowing safety and increased PO intake with reduced aspiration risks. Treatment Duration: Apr 11, 2017 Frequency: 3 times per week Estimated Hrs Per Day: .25 hour per day Rehab Potential: Poor Safety Risks/Education Teaching Recipient: Patient (Patient's RN) Teaching Methods: Discussion Response to Teaching: Reinforcement Needed Education Topics Provided: Swallowing Strategies, Signs/Symptoms of Aspiration, Recommendations Discharge Recommendations [facility] ([facility]) Time Speech Therapy Time In: 08:30 Speech Therapy Time Out: 08:45 Total Billed Time: 15 Billed Treatment Time 1, MARIA ELENA BLACK Apr 04, 2017 10:57
--- NOTE | 2017-04-04 10:57 | Physical Therapy Daily Note ---
PT Daily Note-Current Subjective Patient is alert and agrees to PT. Pain Numeric Pain Scale: 8 Location: Left Location Body Site: Hip Pain Description: Sharp Comment: FLACC Mental Status Patient Orientation: Person, Situation Transfers Functional [place] Measure 0=Not Assessed/NA 4=Minimal Assistance 1=Total Assistance 5=Supervision or Setup 2=Maximal Assistance 6=Modified [place] 3=Moderate Assistance 7=Complete IndependenceIRFPAI Quality Coding Scale 6 Independent with activity with or without an assistive device 5 Patient requires set up or clean up by helper. Patient completes activity by themselves 4 Supervision or touching assist (CGA). [place] provide cues , steadying assist 3 The helper provides less than half the effort to complete the activity 2 The helper provides more than half the effort to complete the activity 1 Dependent. The helper does all the effort to complete an activity 7 Patient refused to complete or attempt activity 9 The patient did not perform the activity before the current illness or injury 88 Not attempted due to Medical conditions or safety concerns Transfers (B, C, W/C) (FIM): 1 Scootin Roll Left to Right (QC): 1 Supine to/from Sit: 1 Sit to/from Stand: 1 Sit to Lying (QC): 1 Sit to Stand (QC): 1 Chair/Ssl-ie-Bpbuj Xfer(QC): 1 Bed to/from Chair: 1 dependent assist x 2 x 3 sets; patient sat EOB x 20 min moderate assist to maintain due to left lean. Dependent assist with SPT bed to recliner to commode to recliner with patient incontinent BM requiring another person to cleanse and change patient. Assessment Patient, while on commode, displayed left LE IR with increase c/o hip pain with PT attempting to range. Dr. Alfonso notified and xray ordered. Patient is flaccid on left. Patient is up in recliner with needs met. PT Short Term Goals Short Term Goals Time Frame: Apr 10, 2017 Transfers (B,C,W/C) (FIM): 2 PT Fci Goals Counseling Psychologist Goals Rollin PT Plan Treatment/Plan Treatment Plan: Continue Plan of Care Treatment Plan: Bed Mobility, Education, Functional Activity Manuelito, Functional Strength, Group Therapy, Gait, Safety, Therapeutic Exercise, Transfers Treatment Duration: Apr 10, 2017 Frequency: 6 times per week Estimated Hrs Per Day: .25 hour per day (15-30 min) Patient and/or Family Agrees t: Yes Time/GCodes Time In: 1000 Time Out: 1025 Total Billed Treatment Time: 25 Total Billed Treatment 1 visit FA x 2 25 min BELÉN HENDERSON PT Apr 04, 2017 10:57
--- NOTE | 2017-04-04 11:15 | Occupational Ther Daily Note ---
OT Current Status-Daily Note Subjective Pt in recliner sleeping. Pt had difficulty waking then had difficulty keeping eyes open. Pt attempted to talk though words were garbled. Pt closed eyes during treatment, but would nod yes when asked direct question. Mental Status/Objective Patient Orientation: Unable to Assess Functional [place] Measure 0=Not Assessed/NA 4=Minimal Assistance 1=Total Assistance 5=Supervision or Setup 2=Maximal Assistance 6=Modified [place] 3=Moderate Assistance 7=Complete [place] ADL-Treatment Functional [place] Measure 0=Not Assessed/NA 4=Minimal Assistance 1=Total Assistance 5=Supervision or Setup 2=Maximal Assistance 6=Modified [place] 3=Moderate Assistance 7=Complete IndependenceIRFPAI Quality Coding Scale 6 Independent with activity with or without an assistive device 5 Patient requires set up or clean up by helper. Patient completes activity by themselves 4 Supervision or touching assist (CGA). [place] provide cues , steadying assist 3 The helper provides less than half the effort to complete the activity 2 The helper provides more than half the effort to complete the activity 1 Dependent. The helper does all the effort to complete an activity 7 Patient refused to complete or attempt activity 9 The patient did not perform the activity before the current illness or injury 88 Not attempted due to Medical conditions or safety concerns Other Treatment PROM to L UE completed. Pt reacted to shldr flexion approximately 110 degrees and when asked if movement was painful pt nodded and vocalized affirmation and reached with R UE to point to where it hurt, anterior bicep area. L UE flaccid throughout PROM, no trace movements noted. Increased swelling from MP's of hand to bicep noted. Family came in at end of therapy session and pt appeared to perk up more. After therapy, pt sitting in recliner with call light in reach. All needs met in room. OT Short Term Goals Short Term Goals Time Frame: Apr 17, 2017 Eating(FIM): 3 Bathing(FIM): 3 Bathing Location: L Arm, L Upper Leg, R Upper Leg, Chest, Abdomen Upper Body Dressing(FIM): 3 Transfers (B,C,W/C) (FIM): 2 Additional Short Term Goals: 2-Verbalize Understanding, 3-ImproveStrength/Manuelito 1=Demonstrate adherence to instructed precautions during ADL tasks. 2=Patient will verbalize/demonstrate understanding of assistive devices/ modifications for ADL. 3=Patient will improve strength/tolerance for activity to enable patient to perform ADL's. OT Road Tester Goals Road Tester Goals Time Frame: May 01, 2017 Eating (FIM): 5 Eating (QC): 5 Groomin (incl teeth and hair) Oral Hygiene (QC): 4 Bathing(FIM): 3 Upper Body Dressing(FIM): 5 Lower Body Dressing(FIM): 3 Toileting(FIM): 3 Toileting Hygiene (QC): 3 Toilet/Commode Transfer(FIM): 3 Toilet/Commode Transfer (QC): 3 Additional Goals: 2-Verbalize Understanding, 3-ImproveStrength/Manuelito 1=Demonstrate adherence to instructed precautions during ADL tasks. 2=Patient will verbalize/demonstrate understanding of assistive devices/ modifications for ADL. 3=Patient will improve strength/tolerance for activity to enable patient to perform ADL's. OT Education/Plan Problem List/Assessment Pt would benefit from skilled OT to increase her independence in basic self care and to decrease caregiver burden Discharge Recommendations Plan/Recommendations: Continue POC Treatment Plan/Plan of Care Patient would benefit from OT for education, treatment and training to promote independence in ADL's, mobility, safety and/or upper extremity function for ADL' s. Plan of Care: ADL Retraining, Caregiver Training, Functional Mobility, UE Funct Exercise/Act, UE Neuromus Re-Ed/Coord, Visual/Perceptual Retrain Treatment Duration: Apr 03, 2017 Frequency: 5 times per week Estimated Hrs Per Day: .5 hour per day Agreement: Yes Rehab Potential: Poor Time/GCodes Start Time: 10:50 Stop Time: 11:05 Total Time Billed (hr/min): 15 Billed Treatment Time 1 visit-NM 1 (15 min) JUAN FRANCISCO SIERRA Apr 04, 2017 11:15
[2017-04-04 17:00] VITALS: BP 151/72
--- NOTE | 2017-04-04 17:56 | Diagnostic Imaging Report ---
INDICATION: Left hip pain. FINDINGS: Two views of the left hip show changes of prior total joint arthroplasty. There is satisfactory alignment. No loosening is evident. There is no fracture or dislocation. There is no change from 04/06/2013. IMPRESSION: Left hip arthroplasty. No acute abnormality is seen. Dictated by: Dictated on workstation # [id number]
[2017-04-04] MEDS: amLODIPine 5 MG (NORVASC) TAB PO SCH (19:52)
[2017-04-04] MEDS: POLYETHYLENE GLYCOL 17 GM (MIRALAX) PACK PO SCH ×2 (19:52→21:40)
[2017-04-05] MEDS: inSUlin (REGULAR) HUMAN 1 UNIT/0.01 ML (CHARGE PER UNIT) SC SCH ×3 (00:30→12:31)
[2017-04-05 06:18] VITALS: BP 137/65
[2017-04-05] MEDS: PANTOPRAZOLE 40 MG (PROTONIX) TAB PO SCH (06:18)
[2017-04-05 07:16] LABS: BASOPHILS # (AUTO) 0.1 10^3/uL (0.0-0.1); BASOPHILS % (AUTO) 1 % (0-10); EOSINOPHILS # (AUTO) 0.3 10^3/uL (0.0-0.3); EOSINOPHILS % (AUTO) 4 % (0-10); HEMATOCRIT 25 % (35-52); HEMOGLOBIN 8.3 G/DL (11.5-16.0); LYMPHOCYTES # (AUTO) 1.7 X 10^3 (1.0-4.0); LYMPHOCYTES % (AUTO) 24 % (12-44); MEAN CORPUSCULAR HEMOGLOBIN 29 PG (25-34); MEAN CORPUSCULAR HGB CONC 33 G/DL (32-36); MEAN CORPUSCULAR VOLUME 88 FL (80-99); MEAN PLATELET VOLUME 9.2 FL (7.4-10.4); MONOCYTES # (AUTO) 0.9 X 10^3 (0.0-1.0); MONOCYTES % (AUTO) 12 % (0-12); NEUTROPHILS # (AUTO) 4.2 X 10^3 (1.8-7.8); NEUTROPHILS % (AUTO) 59 % (42-75); PLATELET COUNT 207 10^3/uL (130-400); RED BLOOD COUNT 2.86 10^6/uL (4.35-5.85); RED CELL DISTRIBUTION WIDTH 17.3 % (10.0-14.5); WHITE BLOOD COUNT 7.1 10^3/uL (4.3-11.0)
[2017-04-05 07:39] LABS: ALANINE AMINOTRANSFERASE 30 U/L (0-55); ALBUMIN 2.9 GM/DL (3.2-4.5); ALKALINE PHOSPHATASE 96 U/L (40-136); BILIRUBIN,TOTAL 0.4 MG/DL (0.1-1.0); BUN/CREATININE RATIO 22; CALCIUM 8.5 MG/DL (8.5-10.1); CARBON DIOXIDE 22 MMOL/L (21-32); CHLORIDE 106 MMOL/L (98-107); CREATININE SERUM 0.69 MG/DL (0.60-1.30); GFR ESTIMATED > 60; GLUCOSE 100 MG/DL (70-105); POTASSIUM 3.4 MMOL/L (3.6-5.0); SODIUM 135 MMOL/L (135-145); TOTAL PROTEIN 6.6 GM/DL (6.4-8.2)
[2017-04-05] MEDS: MUPIROCIN 2% OINT 22 GM (BACTROBAN) TUBE NSEACH SCH (08:48)
[2017-04-05] MEDS: POLYETHYLENE GLYCOL 17 GM (MIRALAX) PACK PO SCH (08:48)
[2017-04-05] MEDS: amLODIPine 5 MG (NORVASC) TAB PO SCH (08:48)
--- OUTSIDE RECORDS SUMMARY | 2017-04-05 08:57 | XMS REPORT | Continuity of Care Document ---
Author Author [facility] Organization [facility] Address Unknown Phone Unavailable Allergies Active Description Code Type Severity Reaction Onset Reported/Identified Relationship to Patient Clinical Status Yes simvastatin [id number] Drug Allergy Unknown ALLERGIC TO "ST 09/18/2005 Yes oxycodone [id number] Drug Allergy Unknown N/A 09/21/2005 Yes morphine [id number] Drug Allergy Unknown HIVES 03/04/2012 Yes Penicillins [id number] Drug Allergy Unknown HIVES 03/04/2012 Yes STATINS STATINS Unknown INCREASED LIVER 03/04/2012 Yes sulfamethoxazole [id number] Drug Allergy Unknown NAUSEA, DIARRHE 2013 Yes trimethoprim [id number] Drug Allergy Unknown NAUSEA, DIARRHE 04/01/2013 Medications [...] BERGER DO Ot 414.01 CORONARY ATHEROSCLEROSIS OF [place] CORON 04/09/2013 JAN BERGER DO Ot 564.00 [...] MD Ot V81.5 SCREEN FOR [facility]PHROPATHY [facility] 715.35 LOC OSTEOARTH NOS-PELVIS 03/27/2016 [facility] Ot 791.9 ABN URINE FINDINGS NEC 03/27/[facility] Ot V72.63 PRE-PROCEDURAL LABORATORY EXAMINATION 03/27/2016 JAN BERGER DO Ot V72.81 [id number] CARDIOVASCULAR 03/27/2016 [facility] JAN LOFTON Ot V72.83 EXAM PRE-OPERATIVE NEC 03/27/2016 [facility] JAN LOFTON Ot V74.8 SCREEN-BACTERIAL DIS NEC 03/27/2016 [facility] Ot 715.35 LOC OSTEOARTH NOS-PELVIS 03/27/2016 [facility] DO Ot V72.63 PRE-PROCEDURAL LABORATORY EXAMINATION 03/27/2016 [facility] DO Ot V74.8 SCREEN-BACTERIAL DIS NEC [...] Status Pt. Type Provider Facility Loc./Unit Complaint [id number] 10/03/2016 08:07:00 10/03/2016 23:59:59 CLS Outpatient KATHERYN MCKEON MD [facility] CARD R94.31 ABNORMAL EKG [id number] 07/11/2016 07:38:00 07/11/2016 23:59:59 CLS Outpatient KATHERYN MCKEON MD [facility] CARD R94.31,I10,E78.2 [id number] 03/28/2016 09:41:00 03/28/2016 23:59:59 CLS Outpatient JANETT GU MD [facility] RAD SCREENING [id number] 11/25/2014 10:20:00 11/25/2014 23:59:59 CLS Outpatient JANETT GU MD [facility] RAD SCREENING [id number] 09/17/2013 14:56:00 09/17/2013 23:59:59 CLS Outpatient JANETT GU MD [facility] RAD SCREENING [id number] 08/19/2013 13:47:00 08/19/2013 23:59:59 CLS Outpatient MANAV RUIZ [facility] CARD HTN,HLP [id number] 07/09/2013 10:16:00 07/09/2013 23:59:59 CLS Outpatient JANETT GU MD [facility] RAD DYSPNEA [id number] 04/06/2013 10:30:00 04/09/2013 16:00:00 DIS Inpatient [facility] DO [facility] SURGICAL LEFT HIP DJD [id number] 04/01/2013 11:46:00 04/01/2013 23:59:59 CLS Outpatient SANT[facility]TERJAN CHAMBERS DO [facility] PREOP LEFT HIP DJD [id number] 03/04/2013 12:01:00 03/04/2013 23:59:59 CLS Outpatient [facility] CH[facility] DO [facility] PREOP LEFT HIP DJD [id number] 08/29/2012 12:28:00 08/29/2012 23:59:59 CLS Outpatient LINDSEY BENNETT MD [facility] RAD LT KIDNEY LESION [id number] 04/04/2017 10:39:00 Document Registration [id number] 04/02/2017 08:36:00 Document Registration [id number] 05/05/2014 13:41:00 Document Registration [id number] 03/21/2012 13:48:00 Document Registration [id number] 03/17/2012 08:16:00 Document Registration [id number] 03/07/2012 09:44:00 Document Registration [id number] 03/04/2012 09:46:00 Document Registration [id number] 03/04/2012 09:39:00 Document Registration [id number] 02/08/2012 14:48:00 Document Registration [id number] 06/12/2011 13:24:00 Document Registration [id number] 04/20/2011 13:22:00 Document Registration [id number] 12/20/2010 10:56:00 Document Registration [id number] 12/07/2010 12:23:00 Document Registration [id number] 11/22/2010 10:14:00 Document Registration
--- NOTE | 2017-04-05 09:22 | Physical Therapy Daily Note ---
PT Daily Note-Current Subjective Pt laying Supine in bed upon arrival. Pt confused and Aide asked for assist with transfers for bathing. Pt agrees to PT. Transfers Functional [place] Measure 0=Not Assessed/NA 4=Minimal Assistance 1=Total Assistance 5=Supervision or Setup 2=Maximal Assistance 6=Modified [place] 3=Moderate Assistance 7=Complete IndependenceIRFPAI Quality Coding Scale 6 Independent with activity with or without an assistive device 5 Patient requires set up or clean up by helper. Patient completes activity by themselves 4 Supervision or touching assist (CGA). [place] provide cues , steadying assist 3 The helper provides less than half the effort to complete the activity 2 The helper provides more than half the effort to complete the activity 1 Dependent. The helper does all the effort to complete an activity 7 Patient refused to complete or attempt activity 9 The patient did not perform the activity before the current illness or injury 88 Not attempted due to Medical conditions or safety concerns Scootin Roll Left to Right (QC): 1 Supine to/from Sit: 1 Sit to/from Stand: 1 Sit to Lying (QC): 1 Sit to Stand (QC): 1 Chair/Ded-js-Gubul Xfer(QC): 1 Bed to/from Chair: 1 Weight Bearing Right Lower Extremity: Right Full Weight Bearing Left Lower Extremity: Left Full Weight Bearing Treatments Pt is assisted with bed bath with SALES SUPPORT REP & WORKFORCE MANAGEMENT COORDINATOR. Pt is dependent with all transfers both supine to EOB and SPT from EOB to recliner. Pt rests in recliner at end of tx with all needs met. Assessment Current Status: Fair Progress Pt is dependent with all transfers and remains confused. PT Short Term Goals Short Term Goals Time Frame: Apr 10, 2017 Transfers (B,C,W/C) (FIM): 2 PT Snf Goals Snf Goals Rollin PT Plan Problem List Problem List: Activity Tolerance, Functional Strength, Safety, Balance, Gait, Transfer, Bed Mobility Treatment/Plan Treatment Plan: Continue Plan of Care Treatment Plan: Bed Mobility, Education, Functional Activity Manuelito, Functional Strength, Group Therapy, Gait, Safety, Therapeutic Exercise, Transfers Treatment Duration: Apr 10, 2017 Frequency: 6 times per week Estimated Hrs Per Day: .25 hour per day (15-30 min) Patient and/or Family Agrees t: Yes Safety Risks/Education Patient Education: Transfer Techniques, Correct Positioning, Safety Issues Teaching Recipient: Patient Teaching Methods: Discussion Response to Teaching: Reinforcement Needed Time/GCodes Time In: 836 Time Out: 846 Total Billed Treatment Time: 10 Total Billed Treatment 1, KAYY (10m) MERCEDES MERINO PTA Apr 05, 2017 09:22
--- NOTE | 2017-04-05 09:49 | Speech Therapy Daily Note ---
Speech Daily Progress Note Subjective Date Seen by Provider: Apr 05, 2017 Time Seen by Provider: 09:00 The patient was seated upright in recliner upon entrance. The patient was alert and greeted the clinician upon entrance. The patient had her breakfast tray present, which consisted of pureed waffle, pureed eggs, pureed ham, nectar thickened coffee/water/Boost. Objective The patient demonstrated increased appropriateness and accuracy throughout informal conversation on this date. The patient self-fed and did not require assistance from the clinician. Per patient, "I am an independent lady. I came here and everyone wants to do everything for me. I don't need that, I need to learn to do this myself." The connectedness of the patient's sentence structure and accuracy of her communication has improved since the prior date. - No signs/symptoms of aspiration were demonstrated with nectar-thick liquid via cup drink or pureed food consistencies. The patient continues to demonstrate poor oral coordination of bolus material, as well as, left oral pocketing and reduced mastication of pureed solids. Due to the reduced coordination, solid consistencies were deferred. Anterior spillage of all consistencies was noted from the left labial side and cleaned from the patient' s chin by the clinician. - Signs/symptoms of aspiration were demonstrated with large straw drinks of nectar-thick liquid and teaspoons of thin liquid. Straws were removed from bedside prior to completion of the evaluation. Recommendations: - Pureed consistencies with nectar-thick liquid, as tolerated. - NO STRAWS. - Small, single sips. - Crush medication and place in puree for administration. - Aid with meal set-up (allow patient attempts to self-feed). - Alert and upright for all PO. Assessment Assessment Current Status: Good Progress Treatment Plan Continue Plan of Care Speech Short Term Goals Short Term Goals Short Term Goals 1. The patient will complete two step, simple commands with 80% accuracy and moderate clinician cueing. 2. The patient will demonstrate 70% accuracy with structured word finding activities with moderate clinician cueing. 3. The patient will accurately sequence ADL activities with 70% accuracy and moderate clinician cueing. Time Frame-STG: Five Days Speech Dye Stand Loader Goals Custodial Goals 1. The patient will demonstrate improved expressive and receptive communication for increased function and safety with daily ADL's. Time Frame: One Week Speech-Plan Treatment Plan Speech Therapy Treatment Plan: Continue Plan of Care Continue skilled speech pathology to target swallowing safety and strategies. Treatment Duration: Apr 11, 2017 Frequency: 3 times per week Estimated Hrs Per Day: .25 hour per day Rehab Potential: Poor Safety Risks/Education Teaching Recipient: Patient Teaching Methods: Discussion Response to Teaching: Verbalize Understanding, Reinforcement Needed Education Topics Provided: Swallowing Strategies Time Speech Therapy Time In: 09:00 Speech Therapy Time Out: 09:30 Total Billed Time: 30 Billed Treatment Time 1, MARIA ELENA MOJICA Apr 05, 2017 09:49
--- NOTE | 2017-04-05 09:52 | Therapy Team Discharge Summary ---
Therapy Discharge Summary Discharge Recommendations Date of Discharge Therapy D/C Recommendations: [facility] ([facility]) Occupational Therapy Decreased Activ Tolerance, Decreased Safety Aware, Decreased UE Strength, Dependent Transfers, Impaired Bed Mobility, Impaired Coordination, Impaired Self -Care Skills, Restricted Funct UE ROM, Visual-Perceptual Deficit Speech-Language Pathology The patient was admitted to [facility] with a diagnosis of CVA and was found to have a GI bleed following admission. The patient demonstrated moderate dysarthria, moderate receptive and expressive aphasia, as well as, moderate oropharyngeal dysphagia. Skilled speech pathology focused on safe PO consistencies (pureed with nectar-thick liquids) and improvement with expressive and receptive communication. The patient demonstrated improved with informal conversational skills and expressive communication throughout her stay , however, remains appropriate for a pureed diet with nectar-thick liquids. Continued skilled speech [facility]. The patient will be discharged from [facility] speech pathology services at this time. PT Combination Presser Goals Combination Presser Goals Rollin OT Mcc Goals Mcc Goals Time Frame: May 01, 2017 Eating (FIM): 5 Eating (QC): 5 Groomin (incl teeth and hair) Oral Hygiene (QC): 4 Bathing(FIM): 3 Upper Body Dressing(FIM): 5 Lower Body Dressing(FIM): 3 Toileting(FIM): 3 Toileting Hygiene (QC): 3 Toilet/Commode Transfer(FIM): 3 Toilet/Commode Transfer (QC): 3 Additional Goals: 2-Verbalize Understanding, 3-ImproveStrength/Manuelito 1=Demonstrate adherence to instructed precautions during ADL tasks. 2=Patient will verbalize/demonstrate understanding of assistive devices/ modifications for ADL. 3=Patient will improve strength/tolerance for activity to enable patient to perform ADL's. Speech Combination Presser Goals Combination Presser Goals 1. The patient will demonstrate improved expressive and receptive communication for increased function and safety with daily ADL's. Time Frame: One Week MARIA ELENA SALAS Apr 05, 2017 09:52
[2017-04-05] MEDS ORDERED: ACHD5005 PO (10:11)
[2017-04-05] MEDS ORDERED: PANT40TA3 PO (10:11)
[2017-04-05] MEDS ORDERED: ACET-77 PO (10:11)
[2017-04-05] MEDS ORDERED: AMLO5TAB2 PO (10:11)
[2017-04-05] MEDS ORDERED: ATOR10TA PO (10:13)
[2017-04-05] MEDS ORDERED: KCL 20 MEQ POWDER FOR ORAL SOLUTION PO NR (10:15)
--- NOTE | 2017-04-05 10:16 | Discharge Inst-Skilled Nursing ---
Discharge Inst-Skilled NF Patient Instructions Patient Problems: CVA w/left sided paresis and dysphagia on thickened fluids Blood per rectum but stable H/H and patient refuses endoscopy HTN Consult/Follow Up/Orders Follow Up Appt.: Dr Baeza on NH rounds Skilled NF Admit to: [facility] Emergency Department Certification (SNF) I certify that SNF services are required to be given on an inpatient basis because of the above named patient's need for snf care on a continuing basis for the conditions(s) for which he/she was receiving inpatient hospital services prior to his/her transfer to the [facility]. Care Home Facility Order: Nursing Services, Lifts And Cranes Inspector-Evaluate & Treat, Physical Therapy-Evaluate & Treat, Speech Language-Evaluate & Treat Discharge Diet: Other Diet (thickened fluids) Daily Activity as Tolerated: Yes New & Resume Previous Orders New Medications: Atorvastatin Calcium (Lipitor) 10 Mg Tablet 10 MG PO DAILY for 30 Days, TAB Hydrocodone Bit/Acetaminophen (Hydrocodone/Acetaminophen 5/325mg Tablet) 1 Tab Tab 1 TAB PO Q6H PRN for PAIN-MILD TO MODERATE, #30 TAB Acetaminophen (Acetaminophen) 500 Mg Tablet 1000 MG PO Q8H PRN for PAIN-MILD for 30 Days, TAB Amlodipine Besylate (Amlodipine Besylate) 5 Mg Tablet 5 MG PO DAILY for 30 Days, TAB Pantoprazole Sodium (Pantoprazole Sodium) 40 Mg Tablet.dr 40 MG PO DAILY@0700 for 30 Days, TAB Continued Medications: Gabapentin (Gabapentin) 300 Mg Capsule 600 MG PO BID, CAP TAKES 2 (300MG) CAPSULES Nebivolol HCl (Bystolic) 5 Mg Tablet 5 MG PO HS, TAB Polyethylene Glycol 3350 (Miralax) 17 Gm Powd.pack 17 GM PO DAILY PRN for CONSTIPATION-2ND LINE, EACH Discontinued Medications: Amlodipine Besylate (Amlodipine Besylate) 10 Mg Tablet 10 MG PO DAILY, TAB Aspirin (Aspirin EC) 81 Mg Tablet.dr 81 MG PO DAILY, TAB Losartan Potassium (Losartan Potassium) 100 Mg Tablet 100 MG PO DAILY, TAB Meloxicam (Meloxicam) 15 Mg Tablet 15 MG PO DAILY, TAB Metformin HCl (Metformin HCl) 1,000 Mg Tablet 1000 MG PO DAILY, TAB Kelly Alfonso Apr 05, 2017 10:14 KELLY ALFONSO DO Apr 05, 2017 10:16
--- NOTE | 2017-04-05 10:18 | Discharge Summary-Hospitalist ---
Diagnosis/Chief Complaint Date of Admission Apr 03, 2017 at 12:05 Date of Discharge Discharge Date: Apr 05, 2017 Discharge Diagnosis Assessment: Catastrophic stroke with left-sided paralysis Hypertension Dysphagia able to accommodate thicken liquids Left hip pain obtaining x-ray to rule out fracture but negative for fracture Blood per rectum and patient declines endoscopy placed on PPI and hgb remained stable but ASA will be ordered by PCP in 1 week Discharge Summary Discharge Physical Examination Allergies: Coded Allergies: Penicillins (Unverified Allergy, Unknown, HIVES, 03/31/17) morphine (Unverified Allergy, Unknown, HIVES, 03/31/17) oxycodone (Verified Allergy, Unknown, 09/21/05) simvastatin (Verified Allergy, Unknown, ALLERGIC TO "STATINS", 09/18/05) sulfamethoxazole (Verified Adverse Reaction, Unknown, NAUSEA, DIARRHEA, , 03/31/17) trimethoprim (Verified Adverse Reaction, Unknown, NAUSEA, DIARRHEA, , 03/31) Uncoded Allergies: STATINS (Allergy, Unknown, INCREASED LIVER ENZYMES, 03/31/17) Vitals & I&Os Vital Signs Date Time Temp Pulse Resp B/P (MAP) Pulse Ox O2 Delivery O2 Flow Rate FiO2 04/05/17 06:18 98.6 84 17 137/65 (89) 97 Room Air Hospital Course Hospital course: Patient had an uneventful hospital course she was admitted with new onset left-sided weakness after a catastrophic stroke. She was also having blood per rectum so anticoagulation and aspirin therapy were contraindicated. She maintained her DO NOT RESUSCITATE resuscitation status and initiated therapy but only recovered the severe dysphagia and brief conversation abilities at time of discharge and likely recovery will be minimal from here on but she agreed to the snf admission for skilled therapy and likely permanent status. Anticoagulation aspirin were held due to blood per rectum on admission so she was placed empirically on proton pump inhibitor no further rectal bleeding occurred but Dr. Baeza would follow-up as an outpatient on snf rounds in one week to decide whether it's safe for aspirin therapy to be initiated or not and her hemoglobin was stable at 8.3 at discharge. Hypertensive management was initiated at time of discharge and she will have close follow-up but long-term prognosis is poor. Labs (last 24 hrs) Laboratory Tests 04/04/17 20:08: Glucometer 105 04/05/17 00:14: Glucometer 101 04/05/17 04:44: Glucometer 104 04/05/17 07:07: White Blood Count 7.1, Red Blood Count 2.86L, Hemoglobin 8.3L, Hematocrit 25L, Mean Corpuscular Volume 88, Mean Corpuscular Hemoglobin 29, Mean Corpuscular Hemoglobin Concent 33, Red Cell Distribution Width 17.3H, Platelet Count 207, Mean Platelet Volume 9.2, Neutrophils (%) (Auto) 59, Lymphocytes (%) (Auto) 24, Monocytes (%) (Auto) 12, Eosinophils (%) (Auto) 4, Basophils (%) (Auto) 1, Neutrophils # (Auto) 4.2, Lymphocytes # (Auto) 1.7, Monocytes # (Auto) 0.9, Eosinophils # (Auto) 0.3, Basophils # (Auto) 0.1, Sodium Level 135, Potassium Level 3.4L, Chloride Level 106, Carbon Dioxide Level 22, Anion Gap 7, Blood Urea Nitrogen 15, Creatinine 0.69, Estimat Glomerular Filtration Rate > 60, BUN/ Creatinine Ratio 22, Glucose Level 100, Calcium Level 8.5, Total Bilirubin 0.4, Aspartate Amino Transf (AST/SGOT) 32, Alanine Aminotransferase (ALT/SGPT) 30, Alkaline Phosphatase 96, Total Protein 6.6, Albumin 2.9L Pending Labs Laboratory Tests 04/05/17 04:44: Glucometer 104 04/05/17 07:07: White Blood Count 7.1, Red Blood Count 2.86, Hemoglobin 8.3, Hematocrit 25, Mean Corpuscular Volume 88, Mean Corpuscular Hemoglobin 29, Mean Corpuscular Hemoglobin Concent 33, Red Cell Distribution Width 17.3, Platelet Count 207, Mean Platelet Volume 9.2, Neutrophils (%) (Auto) 59, Lymphocytes (%) (Auto) 24, Monocytes (%) (Auto) 12, Eosinophils (%) (Auto) 4, Basophils (%) (Auto) 1, Neutrophils # (Auto) 4.2, Lymphocytes # (Auto) 1.7, Monocytes # (Auto) 0.9, Eosinophils # (Auto) 0.3, Basophils # (Auto) 0.1, Sodium Level 135, Potassium Level 3.4, Chloride Level 106, Carbon Dioxide Level 22, Anion Gap 7, Blood Urea Nitrogen 15, Creatinine 0.69, Estimat Glomerular Filtration Rate > 60, BUN/ Creatinine Ratio 22, Glucose Level 100, Calcium Level 8.5, Iron Level [Pending] , Total Bilirubin 0.4, Aspartate Amino Transf (AST/SGOT) 32, Alanine Aminotransferase (ALT/SGPT) 30, Alkaline Phosphatase 96, Total Protein 6.6, Albumin 2.9 Discharge Home Medications: Active Scripts Active Lipitor (Atorvastatin Calcium) 10 Mg Tablet 10 Mg PO DAILY 30 Days Pantoprazole Sodium 40 Mg Tablet.dr 40 Mg PO DAILY@0700 30 Days Acetaminophen 500 Mg Tablet 1,000 Mg PO Q8H PRN 30 Days Amlodipine Besylate 5 Mg Tablet 5 Mg PO DAILY 30 Days Reported Miralax (Polyethylene Glycol 3350) 17 Gm Powd.pack 17 Gm PO DAILY PRN Gabapentin 300 Mg Capsule 600 Mg PO BID TAKES 2 (300MG) CAPSULES Bystolic (Nebivolol HCl) 5 Mg Tablet 5 Mg PO HS Instructions to patient/family Please see electronic discharge instructions given to patient. Clinical Quality Measures DVT/VTE Risk/Contraindication: Risk Factor Score Per Nursin Other: Patient has GI bleed DILMA VINES DO Apr 05, 2017 10:18
[2017-04-05 13:35] VITALS: BP 137/65
--- NOTE | 2017-04-08 14:47 | Therapy Team Discharge Summary ---
Therapy Discharge Summary Discharge Recommendations Date of Discharge Apr 05, 2017 at 13:35 Therapy D/C Recommendations: Custodial (TCU/NH) Physical Therapy This patient was seen on [facility] for skilled PT intervnetion post CVA. Prior to hospital stay, pt was mod indep with functional mobility and able to walk with a FWW, per family report. Upon evaluation, she required assist of 2 for all bed mobiltiy and transfers. Treatment consisted of bed mobility training, transfers and LE activity. Upon discharge, she still required dep assist for transfers and mobility. The goals was for her to be max assist for transfers, which she did not achieve. Recommend continued skilled PT intervention at discharge placement for progression of mobility as able. DC from skilled PT at this facility. 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 2=Patient will verbalize/demonstrate understanding of assistive devices/ modifications for ADL. 3=Patient will improve strength/tolerance for activity to enable patient to perform ADL's. Speech Retirement Goals Retirement Goals 1. The patient will demonstrate improved expressive and receptive communication for increased function and safety with daily ADL's. Time Frame: One Week JUAN FRANCISCO CARR PT Apr 08, 2017 14:47
== END 2017-04-05 13:35 | DRG 57 ==
LOC: 4TH 12:05
PROVIDERS: ADMIT Internal Medicine; ATTEND Internal Medicine
DX: I69.354 Hemiplegia and hemiparesis following cerebral infarction affecting left non-dominant side (principal); I69.391 Dysphagia following cerebral infarction; I10 Essential (primary) hypertension; I69.392 Facial weakness following cerebral infarction; I69.328 Other speech and language deficits following cerebral infarction; R47.81 Slurred speech; K62.5 Hemorrhage of anus and rectum; M25.552 Pain in left hip; Z66 Do not resuscitate; E11.9 Type 2 diabetes mellitus without complications; Z79.84 Long term (current) use of oral hypoglycemic drugs; Z87.891 Personal history of nicotine dependence
CPT/HCPCS: 36415; 73502; 80053; 82962; 83540; 85025

== ENCOUNTER → 2017-05-20 | Outpatient (CLI) | payer MEDICARE ==
[~2017-05-20] MED LIST changes: +ACET-77 PO; +ACHD5005 PO; +AMLO5TAB2 PO; +ATOR10TA PO; +PANT40TA3 PO
--- NOTE | 2017-05-20 10:45 | Diagnostic Imaging Report ---
INDICATION: Elevated liver enzymes. FINDINGS: The liver is normal in size without focal lesions. There is no biliary ductal dilatation. The common bile duct measures 6 mm. There is cholelithiasis. There is gallbladder wall thickening up to 3.4 mm. There is no pericholecystic fluid. The pancreas is obscured by bowel gas. The right kidney is normal. There is no ascites. IMPRESSION: Cholelithiasis and gallbladder wall thickening. Acute cholecystitis cannot be excluded. Recommend clinical correlation and, if warranted, further evaluation with a Nuclear Medicine hepatobiliary scan. Dictated by: Dictated on workstation # [id number]
== END ==
LOC: RAD 08:28
PROVIDERS: ATTEND Internal Medicine
DX: K80.00 Calculus of gallbladder with acute cholecystitis without obstruction (principal)
CPT/HCPCS: 76705

== ENCOUNTER → 2017-06-19 | Outpatient (CLI) | payer MEDICARE ==
[~2017-06-19] VITALS: Ht 162.6 cm; Wt 77.1 kg
[~2017-06-19] MED LIST changes: -METF1000 PO; +METF10002 PO; +NS IV 500 ML 500 ML IV ONE
[2017-06-19 14:46] VITALS: BP 131/82
[2017-06-19 15:25] VITALS: BP 151/78
[2017-06-19 15:40] VITALS: BP 146/80
[2017-06-19 17:42] VITALS: BP 142/73
[2017-06-19 18:00] LABS: HEMOGLOBIN 7.5 G/DL (11.5-16.0)
== END ==
LOC: SDC 14:19
PROVIDERS: ATTEND Physician Assistant
DX: D64.9 Anemia, unspecified (principal)
CPT/HCPCS: 36415; 36430; 85014; 85018; 86850; 86900; 86901; 86920

== ENCOUNTER 2017-11-15 10:27 | Outpatient (RCR) | payer MEDICARE | END 2017-11-17 | disposition home or self-care (01) | LOC: ONC 10:27 | PROVIDERS: ATTEND Internal Medicine Hematology & Oncology | DX: D64.9 Anemia, unspecified (principal); I10 Essential (primary) hypertension | CPT/HCPCS: 36415; 82728; 83540; 84443; 99214 ==

== ENCOUNTER → 2017-11-15 | Outpatient (CLI) | payer MEDICARE ==
[~2017-11-15] MED LIST changes: -AMLO10TA2 PO; +AMLO10TA6 PO; -AMLO5TAB2 PO; +AMLO5TAB7 PO; -LOSA100T28 PO; +LOSA100T8 PO; +METF-399 PO; -METF10002 PO; -NS IV 500 ML 500 ML IV ONE
[2017-11-15 11:32] LABS: BASOPHILS # (AUTO) 0.1 10^3/uL (0.0-0.1); BASOPHILS % (AUTO) 1 % (0-10); EOSINOPHILS # (AUTO) 0.1 10^3/uL (0.0-0.3); EOSINOPHILS % (AUTO) 3 % (0-10); HEMATOCRIT 29 % (35-52); HEMOGLOBIN 9.3 G/DL (11.5-16.0); LYMPHOCYTES # (AUTO) 1.2 X 10^3 (1.0-4.0); LYMPHOCYTES % (AUTO) 30 % (12-44); MEAN CORPUSCULAR HEMOGLOBIN 30 PG (25-34); MEAN CORPUSCULAR HGB CONC 32 G/DL (32-36); MEAN CORPUSCULAR VOLUME 94 FL (80-99); MEAN PLATELET VOLUME 10.4 FL (7.4-10.4); MONOCYTES # (AUTO) 0.5 X 10^3 (0.0-1.0); MONOCYTES % (AUTO) 11 % (0-12); NEUTROPHILS # (AUTO) 2.3 X 10^3 (1.8-7.8); NEUTROPHILS % (AUTO) 55 % (42-75); PLATELET COUNT 148 10^3/uL (130-400); RED BLOOD COUNT 3.07 10^6/uL (4.35-5.85); RED CELL DISTRIBUTION WIDTH 22.2 % (10.0-14.5); WHITE BLOOD COUNT 4.1 10^3/uL (4.3-11.0)
[2017-11-15 11:49] LABS: CREATININE SERUM 1.28 MG/DL (0.60-1.30); POTASSIUM 3.7 MMOL/L (3.6-5.0)
== END ==
LOC: LAB 10:36
PROVIDERS: ATTEND Internal Medicine
DX: D64.9 Anemia, unspecified (principal); I10 Essential (primary) hypertension
CPT/HCPCS: 36415; 80048; 85025

== ENCOUNTER → 2017-12-09 | Outpatient (CLI) | payer MEDICARE | LOC: CARD 09:11 | PROVIDERS: ATTEND Physician Assistant | DX: I50.9 Heart failure, unspecified (principal); I08.3 Combined rheumatic disorders of mitral, aortic and tricuspid valves | CPT/HCPCS: 93306 ==

== ENCOUNTER → 2018-01-15 | Outpatient (CLI) | payer MEDICARE ==
[~2018-01-15] MED LIST changes: +ACET-2267 PO; +ASPI-586 PO; +CEPH-507 PO; +DOCU-143 PO; +FERR325T18 PO; +FURO40TA4 PO; +GABA600T2 PO; +HYDR-4226 PO; +MAGN355O5 PO; +OMEP20TA7 PO; +POTA-51 PO; +SPIR25TA5 PO
== END ==
LOC: CVS 19:32
PROVIDERS: ATTEND Internal Medicine
DX: N39.0 Urinary tract infection, site not specified (principal); R53.1 Weakness; R41.0 Disorientation, unspecified
CPT/HCPCS: 87088

== ENCOUNTER 2018-01-18 15:59 | Observation (INO) | payer MEDICARE ==
[~2018-01-18] VITALS: Ht 170.2 cm; Wt 94.8 kg
[~2018-01-18 15:59] MED LIST changes: -ACET-2267 PO; -ASPI-586 PO; -CEPH-507 PO; -DOCU-143 PO; -FERR325T18 PO; -FURO40TA4 PO; -GABA600T2 PO; -HYDR-4226 PO; -MAGN355O5 PO; -OMEP20TA7 PO; -POTA-51 PO; -SPIR25TA5 PO
--- NOTE | 2018-01-18 16:29 | ED GU-Female ---
General Chief Complaint: -Female Stated Complaint: TROUBLE URINATING Nursing Triage Note: REPORT CALLED IN BY ED BLAKE. PT HAS BEEN STATING THAT SHE HAS BURNING AND DISCOMFORT WHEN URINATIONG. PT AGREES TO THIS STATEMENT UPON ARRIVAL. PT VERBALIZES FEELING LIKE SHE HAS TO URINATE FREQUENTLY BUT HAS LITTLE OUTPUT Nursing Sepsis Screen: No Definite Risk Source: patient, family, EMS Exam Limitations: physical impairment History of Present Illness Date Seen by Provider: Jan 18, 2018 Time Seen by Provider: 16:26 Initial Comments This 87-year-old white female presents with a history of dysuria and frequency that has been present for the last 24 hours. The patient was brought by EMS for evaluation. Patient had a stroke within the last year with residual left arm and leg weakness. She denies significant history of urinary tract infections in the past. She denies flank pain. She is having no significant fever or chill. Allergies and Home Medications Allergies Coded Allergies: Penicillins (Unverified Allergy, Unknown, HIVES, 03/31/17) morphine (Unverified Allergy, Unknown, HIVES, 03/31/17) oxycodone (Verified Allergy, Unknown, 09/21/05) simvastatin (Verified Allergy, Unknown, ALLERGIC TO "STATINS", 09/18/05) sulfamethoxazole (Verified Adverse Reaction, Unknown, NAUSEA, DIARRHEA, , 03/31/17) trimethoprim (Verified Adverse Reaction, Unknown, NAUSEA, DIARRHEA, , 03/31) Uncoded Allergies: STATINS (Allergy, Unknown, INCREASED LIVER ENZYMES, 03/31/17) Home Medications Acetaminophen 500 Mg Tablet, 1,000 MG PO Q8H PRN for PAIN-MILD Prescribed by: DILMA VINES on 04/05/17 1011 Amlodipine Besylate 5 Mg Tablet, 5 MG PO DAILY Prescribed by: DILMA VINES on 04/05/17 1011 Atorvastatin Calcium 10 Mg Tablet, 10 MG PO DAILY Prescribed by: DILMA VINES on 04/05/17 1013 Gabapentin 300 Mg Capsule, 600 MG PO BID, (Reported) TAKES 2 (300MG) CAPSULES Nebivolol HCl 5 Mg Tablet, 5 MG PO HS, (Reported) Pantoprazole Sodium 40 Mg Tablet.dr, 40 MG PO DAILY@0700 Prescribed by: DILMA VINES on 04/05/17 1011 Polyethylene Glycol 3350 17 Gm Powd.pack, 17 GM PO DAILY PRN for CONSTIPATION- 2ND LINE, (Reported) Patient Home Medication List Home Medication List Reviewed: Yes Review of Systems Review of Systems Constitutional: No chills, No fever EENTM: No ear pain Respiratory: No cough Cardiovascular: No chest pain Gastrointestinal: No abdominal pain, No diarrhea, No nausea, No vomiting Genitourinary: see HPI, burning, dysuria, frequency; denies flank pain : No Musculoskeletal: No back pain Skin: No rash Psychiatric/Neurological: No Symptoms Reported Endocrine: No Symptoms Reported Hematologic/Lymphatic: No Symptoms Reported Past Oxmybbz-Yzhhcr-Oesexh Hx Past Med/Social Hx: Reviewed Nursing Past Med/Soc Hx Patient Social History Type Used: Cigarettes Former Smoker, Quit: Apr 01, 1976 Recent Foreign Travel: No Contact w/Someone Who Travel: No Recent Infectious Disease Expo: No Recent Hopitalizations: Yes (BACK SURG) Immunizations Up To Date Tetanus Booster (TDap): Less than 5yrs Date of Influenza Vaccine: Apr 02, 2017 Seasonal Allergies Seasonal Allergies: No Past Medical History Surgeries: Yes (CATARACTS, CARPAL TUNNEL, BACK SURG X2, FX ANKLE) Respiratory: No Cardiac: Yes Neurological: Yes : No Reproductive Disorders: No 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 Genitourinary: No Gastrointestinal: No Musculoskeletal: Yes (ARTHRITIS, SPINAL STENOSIS, 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00" Weight: 202lbs. 1.0oz. 91.767266lv; 28.2 BMI Method:Stated General Appearance: WD/WN, no apparent distress HEENT: normal ENT inspection Neck: full range of motion, supple Cardiovascular: regular rate, rhythm Respiratory: normal breath sounds Gastrointestinal: normal bowel sounds, non tender Back: normal inspection Extremities: normal range of motion, other (there is residual left arm and leg weakness from the patient's previous stroke) Neurologic/Psychiatric: alert, oriented x 3, motor weakness (motor weakness in left upper and lower extremities are noted.) Skin: normal color, warm/dry; No rash Focused Exam Lactate Level 01/18/18 16:25: Lactic Acid Level 1.57 Lactic Acid Level Laboratory Tests Test 01/18/18 16:25 Lactic Acid Level 1.57 MMOL/L (0.50-2.00) Progress/Results/Core Measures Suspected Sepsis Recent Fever Within 48 Hours: No Infection Criteria Present: Suspected New Infection New/Unexplained Altered Menta: Yes Sepsis Screen: No Definite Risk SIRS Temperature:97.9 Pulse: 79 Respiratory Rate: 20 Laboratory Tests 01/18/18 16:25: White Blood Count 5.9 Blood Pressure 136 /101 Mean: 113 01/18/18 16:25: Lactic Acid Level 1.57 Laboratory Tests 01/18/18 16:25: Creatinine 1.30, Platelet Count 133, Total Bilirubin 0.8 Results/Orders Lab Results Laboratory Tests Test 01/18/18 16:25 01/18/18 17:05 Range/Units White Blood Count 5.9 4.3-11.0 10^3/uL Red Blood Count 3.16 L 4.35-5.85 10^6/uL Hemoglobin 9.6 L 11.5-16.0 G/DL Hematocrit 30 L 35-52 % Mean Corpuscular Volume 95 80-99 FL Mean Corpuscular Hemoglobin 30 25-34 PG Mean Corpuscular Hemoglobin Concent 32 32-36 G/DL Red Cell Distribution Width 14.6 H 10.0-14.5 % Platelet Count 133 130-400 10^3/uL Mean Platelet Volume 10.6 H 7.4-10.4 FL Neutrophils (%) (Auto) 57 42-75 % Lymphocytes (%) (Auto) 30 12-44 % Monocytes (%) (Auto) 11 0-12 % Eosinophils (%) (Auto) 2 0-10 % Basophils (%) (Auto) 1 0-10 % Neutrophils # (Auto) 3.3 1.8-7.8 X 10^3 Lymphocytes # (Auto) 1.7 1.0-4.0 X 10^3 Monocytes # (Auto) 0.6 0.0-1.0 X 10^3 Eosinophils # (Auto) 0.1 0.0-0.3 10^3/uL Basophils # (Auto) 0.0 0.0-0.1 10^3/uL Sodium Level 136 135-145 MMOL/L Potassium Level 4.1 3.6-5.0 MMOL/L Chloride Level 106 98-107 MMOL/L Carbon Dioxide Level 23 21-32 MMOL/L Anion Gap 7 5-14 MMOL/L Blood Urea Nitrogen 22 H 7-18 MG/DL Creatinine 1.30 0.60-1.30 MG/DL Estimat Glomerular Filtration Rate 39 BUN/Creatinine Ratio 17 Glucose Level 112 H 70-105 MG/DL Lactic Acid Level 1.57 0.50-2.00 MMOL/L Calcium Level 8.2 L 8.5-10.1 MG/DL Corrected Calcium 9.6 8.5-10.1 MG/DL Total Bilirubin 0.8 0.1-1.0 MG/DL Aspartate Amino Transf (AST/SGOT) 29 5-34 U/L Alanine Aminotransferase (ALT/SGPT) 23 0-55 U/L Alkaline Phosphatase 170 H 40-136 U/L Total Protein 7.2 6.4-8.2 GM/DL Albumin 2.2 L 3.2-4.5 GM/DL Urine Color YELLOW Urine Clarity VERY CLOUDY H Urine pH 6 5-9 Urine Specific [place] 1.020 1.016-1.022 Urine Protein 3+ H NEGATIVE Urine Glucose (UA) NEGATIVE NEGATIVE Urine Ketones NEGATIVE NEGATIVE Urine Nitrite POSITIVE H NEGATIVE Urine Bilirubin NEGATIVE NEGATIVE Urine Urobilinogen 1 NORMAL MG/DL Urine Leukocyte Esterase 3+ H NEGATIVE Urine RBC (Auto) 4+ H NEGATIVE Urine RBC 2-5 H /HPF Urine WBC TNTC H /HPF Urine Squamous Epithelial Cells 2-5 /HPF Urine Crystals NONE /LPF Urine Bacteria MODERATE H /HPF Urine Casts NONE /LPF Urine Mucus NEGATIVE /LPF Urine Culture Indicated YES My Orders Orders - LINDSAY BLACKWELL MD Ua Culture If Indicated (01/18/18 16:23) Comprehensive Metabolic Panel (01/18/18 16:23) Cbc With Automated Diff (01/18/18 16:23) Blood Culture (01/18/18 16:29) Lactic Acid Analyzer (01/18/18 16:29) Ns Iv 1000 Ml (Sodium Chloride 0.9%) (01/18/18 16:30) Urine Culture (01/18/18 17:05) Ceftriaxone For Iv Use (Rocephin For I (01/18/18 18:00) Medications Given in ED Current Medications Medications Dose Ordered Sig/Tom Route Start Time Stop Time Status Last Admin Dose Admin Ceftriaxone Sodium 2000 mg/ Sodium Chloride 50 ml @ 100 mls/hr ONCE ONCE IV 01/18/18 18:00 01/18/18 18:29 01/18/18 17:58 100 MLS/HR Vital Signs/I&O 01/18/18 16:02 Temp 97.9 Pulse 79 Resp 20 B/P (MAP) 136/101 (113) Pulse Ox 100 O2 Delivery Room Air Capillary Refill : Less Than 3 Seconds Blood Pressure Mean: 113 Progress Note : Time: 18:14 Progress Note The patient's laboratory evaluation demonstrated a marked urinary tract infection. Patient was given 2 g Rocephin IV. She was observed closely as she has a penicillin allergy. Telephone consultation with Dr. Wakefield was undertaken. He was kind enough to admit the patient to an observation bed overnight. Orders are given written and the patient will be transferred to the floor. Departure Communication (Admissions) Time/Spoke to Admitting Phy: 18:14 Dr. Wakefield. Impression Primary Impression: Urinary tract infection Qualified Codes: N30.00 - Acute cystitis without hematuria Disposition: ADMITTED INPATIENT Condition: Improved Admissions Decision to Admit Reason: Admit from ER (General) Decision to Admit/Date: Jan 18, 2018 Time/Decision to Admit Time: 18:15 Departure-Patient Inst. Referrals: JANETT GU MD (PCP) Primary Care Physician LINDSAY BLACKWELL MD Jan 18, 2018 16:29
[2018-01-18] MEDS ORDERED: NS IV 1000 ML 1,000 ML IV SCH (16:30)
[2018-01-18 16:50] LABS: BASOPHILS % (AUTO) 1 % (0-10); EOSINOPHILS # (AUTO) 0.1 10^3/uL (0.0-0.3); EOSINOPHILS % (AUTO) 2 % (0-10); HEMATOCRIT 30 % (35-52); HEMOGLOBIN 9.6 G/DL (11.5-16.0); LYMPHOCYTES # (AUTO) 1.7 X 10^3 (1.0-4.0); LYMPHOCYTES % (AUTO) 30 % (12-44); MEAN CORPUSCULAR HEMOGLOBIN 30 PG (25-34); MEAN CORPUSCULAR HGB CONC 32 G/DL (32-36); MEAN CORPUSCULAR VOLUME 95 FL (80-99); MEAN PLATELET VOLUME 10.6 FL (7.4-10.4); MONOCYTES # (AUTO) 0.6 X 10^3 (0.0-1.0); MONOCYTES % (AUTO) 11 % (0-12); NEUTROPHILS # (AUTO) 3.3 X 10^3 (1.8-7.8); NEUTROPHILS % (AUTO) 57 % (42-75); PLATELET COUNT 133 10^3/uL (130-400); RED BLOOD COUNT 3.16 10^6/uL (4.35-5.85); RED CELL DISTRIBUTION WIDTH 14.6 % (10.0-14.5); WHITE BLOOD COUNT 5.9 10^3/uL (4.3-11.0)
[2018-01-18 17:03] LABS: ALBUMIN 2.2 GM/DL (3.2-4.5); BILIRUBIN,TOTAL 0.8 MG/DL (0.1-1.0); CALCIUM 8.2 MG/DL (8.5-10.1); CREATININE SERUM 1.3 MG/DL (0.60-1.30); POTASSIUM 4.1 MMOL/L (3.6-5.0); TOTAL PROTEIN 7.2 GM/DL (6.4-8.2)
--- OUTSIDE RECORDS SUMMARY | 2018-01-18 17:11 | XMS REPORT | Continuity of Care Document ---
Author Author [facility] Organization [facility] Address Unknown Phone Unavailable Allergies Active Description Code Type Severity Reaction Onset Reported/Identified Relationship to Patient Clinical Status Yes simvastatin [id number] Drug Allergy Unknown ALLERGIC TO "ST 09/18/2005 Yes oxycodone [id number] Drug Allergy Unknown N/A 09/21/2005 Yes morphine [id number] Drug Allergy Unknown HIVES 03/31/2017 Yes Penicillins [id number] Drug Allergy Unknown HIVES 03/31/2017 Yes STATINS STATINS Unknown INCREASED LIVER 03/31/2017 Yes sulfamethoxazole [id number] Drug Allergy Unknown NAUSEA, DIARRHE 2017 Yes trimethoprim [id number] Drug Allergy Unknown NAUSEA, DIARRHE 03/31/2017 Medications There is no data. Problems Date [...] BERGER DO Ot 414.01 CORONARY ATHEROSCLEROSIS OF [place] CORON 04/09/2013 JAN BERGER DO Ot 564.00 UNSPEC CONSTIPATION 04/09/2013 JAN BERGER DO Ot 715.35 LOC OSTEOARTH NOS-PELVIS 04/09/2013 JAN BERGER DO Ot 729.1 MYALGIA AND MYOSITIS NOS 04/09/2013 [...] MD Ot V81.5 SCREEN FOR NEPHROPATHY 03/27/2016 [facility] Ot 715.35 LOC [place] NOS-PELVIS 03/27/2016 [facility] JAN LOFTON Ot 791.9 ABN URINE FINDINGS NEC 03/27/[facility] Ot V72.63 PRE-PROCEDURAL LABORATORY EXAMINATION 03/27/2016 JAN BERGER DO Ot V72.81 [id number] CARDIOVASCULAR 03/27/2016 [facility] JAN LOFTON Ot V72.83 EXAM PRE-OPERATIVE NEC 03/27/2016 [facility] JAN LOFTON Ot V74.8 SCREEN-BACTERIAL DIS NEC 03/27/2016 [facility] Ot 715.35 LOC [place] NOS-PELVIS 03/27/2016 [facility] JAN LOFTON Ot V72.63 PRE-PROCEDURAL LABORATORY EXAMINATION 03/27/2016 [facility] Ot V74.8 SCREEN-BACTERIAL DIS NEC 03/27/2016 RICCARDO BENNETT, JANETT Cortez Ot 786.09 RESPIRATORY ABNORM NEC 03/27/2016 MANAV RUIZ Ot 272.4 HYPERLIPIDEMIA NEC/NOS 03/27/2016 MANAV RUIZ Ot 397.0 TRICUSPID VALVE DISEASE 03/27/2016 MANAV RUIZ Ot 401.9 HYPERTENSION NOS 03/27/2016 MANAV RUIZ Ot 424.0 MITRAL VALVE DISORDER 03/27/2016 MANAV RUIZ Ot 786.09 RESPIRATORY ABNORM NEC 03/27/2016 JANETT GU MD Ot V76.12 OTH SCREEN MAMMO-MALIGN NEOPLASM OF [place] 03/27/2016 Ot 709.9 SKIN DISORDER NOS 03/27/2016 JANETT GU MD Ot Z12.31 ENCNTR SCREEN MAMMOGRAM FOR MALIGNANT NE 03/29/2016 JANETT GU MD Ot Z12.31 ENCNTR SCREEN MAMMOGRAM FOR MALIGNANT NE 03/29/2016 JANETT GU MD Ot Z12.31 ENCNTR SCREEN MAMMOGRAM FOR MALIGNANT NE 04/20/2016 JANETT GU MD Ot Z12.31 ENCNTR SCREEN MAMMOGRAM FOR MALIGNANT NE 10/24/2016 KATHERYN MCKEON MD Ot E78.2 MIXED HYPERLIPIDEMIA 10/24/2016 KATHERYN MCKEON MD, Ot I10 ESSENTIAL (PRIMARY) HYPERTENSION 10/24/2016 KATHERYN MCKEON MD Ot R94.31 ABNORMAL ELECTROCARDIOGRAM [ECG] [EKG] 10/31/2016 KATHERYN MCKEON MD Ot E78.2 MIXED HYPERLIPIDEMIA 10/31/2016 KATHERYN MCKEON MD Ot I10 ESSENTIAL (PRIMARY) HYPERTENSION 10/31/2016 KATHERYN MCKEON MD Ot R94.31 ABNORMAL ELECTROCARDIOGRAM [ECG] [EKG] 04/02/2017 JOHN CHAPMAN MD, Ot D64.9 ANEMIA, UNSPECIFIED 04/02/2017 JOHN CHAPMAN MD, Ot E11.9 TYPE 2 DIABETES MELLITUS WITHOUT COMPLIC 04/02/2017 JOHN CHAPMAN MD, Ot E87.1 HYPO-OSMOLALITY AND HYPONATREMIA 04/02/2017 JOHN CHAPMAN MD Ot E87.2 ACIDOSIS 04/02/2017 JOHN CHAPMAN MD Ot G81.94 HEMIPLEGIA, UNSPECIFIED AFFECTING LEFT N 04/02/2017 JOHN CHAPMAN MD, Ot I10 ESSENTIAL (PRIMARY) HYPERTENSION 04/02/2017 JOHN CHAPMAN MD, Ot I63.9 CEREBRAL INFARCTION, UNSPECIFIED 04/02/2017 JOHN CHAPMAN MD, Ot K92.2 GASTROINTESTINAL HEMORRHAGE, UNSPECIFIED 04/02/2017 JOHN CHAPMAN MD, Ot M48.00 SPINAL STENOSIS, SITE UNSPECIFIED 04/02/2017 JOHN CHAPMAN MD, Ot R29.718 NIHSS SCORE 18 04/02/2017 JOHN CHAPMAN MD, Ot R29.810 FACIAL WEAKNESS 04/02/2017 JOHN CHAPMAN MD, Ot R53.81 OTHER MALAISE 04/02/2017 JOHN CHAPMAN MD Ot Z79.84 PRISON (CURRENT) USE OF ORAL HYPOGLYC 04/02/2017 JOHN CHAPMAN MD, Ot Z87.891 PERSONAL HISTORY OF NICOTINE DEPENDENCE 04/02/2017 JOHN CHAPMAN MD, Ot D64.9 ANEMIA, UNSPECIFIED 04/02/2017 JOHN CHAPMAN MD Ot E11.9 TYPE 2 DIABETES MELLITUS WITHOUT COMPLIC 04/02/2017 JOHN CHAPMAN MD Ot E87.1 HYPO-OSMOLALITY AND HYPONATREMIA 04/02/2017 JOHN CHAPMAN MD Ot E87.2 ACIDOSIS 04/02/2017 JOHN CHAPMAN MD Ot G81.94 HEMIPLEGIA, UNSPECIFIED AFFECTING LEFT N 04/02/2017 JOHN CHAPMAN MD Ot I10 ESSENTIAL (PRIMARY) HYPERTENSION 04/02/2017 JOHN CHAPMAN MD Ot I63.9 CEREBRAL INFARCTION, UNSPECIFIED 04/02/2017 JOHN CHAPMAN MD Ot K92.2 GASTROINTESTINAL HEMORRHAGE, UNSPECIFIED 04/02/2017 JOHN CHAPMAN MD Ot M48.00 SPINAL STENOSIS, SITE UNSPECIFIED 04/02/2017 JOHN CHAPMAN MD Ot R29.718 NIHSS SCORE 18 04/02/2017 JOHN CHAPMAN MD Ot R29.810 FACIAL WEAKNESS 04/02/2017 JOHN HCAPMAN MD Ot R53.81 OTHER MALAISE 04/02/2017 JOHN CHAPMAN MD Ot Z79.84 PRISON (CURRENT) USE OF ORAL HYPOGLYC 04/02/2017 JOHN CHAPMAN MD Ot Z87.891 PERSONAL HISTORY OF NICOTINE DEPENDENCE 04/03/2017 JOHN CHAPMAN MD Ot D64.9 ANEMIA, UNSPECIFIED 04/03/2017 JOHN CHAPMAN MD Ot E11.9 TYPE 2 DIABETES MELLITUS WITHOUT COMPLIC 04/03/2017 JOHN CHAPMAN MD Ot E87.1 HYPO-OSMOLALITY AND HYPONATREMIA 04/03/2017 JOHN CHAPMAN MD Ot E87.2 ACIDOSIS 04/03/2017 JOHN CHAPMAN MD Ot G81.94 HEMIPLEGIA, UNSPECIFIED AFFECTING LEFT N 04/03/2017 JOHN CHAPMAN MD Ot I10 ESSENTIAL (PRIMARY) HYPERTENSION 04/03/2017 JOHN CHAPMAN MD Ot I63.9 CEREBRAL INFARCTION, UNSPECIFIED 04/03/2017 JOHN CHAPMAN MD Ot K92.2 GASTROINTESTINAL HEMORRHAGE, UNSPECIFIED 04/03/2017 JOHN CHAPMAN MD Ot M48.00 SPINAL STENOSIS, SITE UNSPECIFIED 04/03/2017 JOHN CHAPMAN MD Ot R29.718 NIHSS SCORE 18 04/03/2017 JOHN CHAPMAN MD Ot R29.810 FACIAL WEAKNESS 04/03/2017 JOHN CHAPMAN MD Ot R53.81 OTHER MALAISE 04/03/2017 JOHN CHAPMAN MD Ot 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 04/03/2017 JOHN CHAPAMN MD Ot Z87.891 PERSONAL HISTORY OF NICOTINE DEPENDENCE 04/03/2017 JOHN CHAPMAN MD Ot D64.9 ANEMIA, UNSPECIFIED 04/03/2017 JOHN CHAPMAN MD Ot E11.9 TYPE 2 DIABETES MELLITUS WITHOUT COMPLIC 04/03/2017 JOHN CHAPMAN MD Ot E87.1 HYPO-OSMOLALITY AND HYPONATREMIA 04/03/2017 JOHN CHAPMAN MD Ot E87.2 ACIDOSIS 04/03/2017 JOHN CHAPMAN MD Ot G81.94 HEMIPLEGIA, UNSPECIFIED AFFECTING LEFT N 04/03/2017 JOHN CHAPMAN MD Ot I10 ESSENTIAL (PRIMARY) HYPERTENSION 04/03/2017 JOHN CHAPMAN MD Ot I63.9 CEREBRAL INFARCTION, UNSPECIFIED 04/03/2017 JOHN CHAPMAN MD Ot K92.2 GASTROINTESTINAL HEMORRHAGE, UNSPECIFIED 04/03/2017 JOHN CHAPMAN MD Ot M48.00 SPINAL STENOSIS, SITE UNSPECIFIED 04/03/2017 JOHN CHAPMAN MD Ot R29.718 NIHSS SCORE 18 04/03/2017 JOHN CHAPMAN MD Ot R29.810 FACIAL WEAKNESS 04/03/2017 JOHN CHAPMAN MD Ot R47.81 SLURRED SPEECH 04/03/2017 JOHN CHAPMAN MD Ot R53.81 OTHER MALAISE 04/03/2017 JOHN CHAPMAN MD Ot Z23 ENCOUNTER FOR IMMUNIZATION 04/03/2017 JOHN CHAPMAN MD Ot Z66 DO NOT RESUSCITATE 04/03/2017 JOHN CHAPMAN MD Ot 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 04/03/2017 JOHN CHAPMAN MD Ot Z87.891 PERSONAL HISTORY OF NICOTINE DEPENDENCE 04/05/2017 DILMA VINES DO Ot E11.9 TYPE 2 DIABETES MELLITUS WITHOUT COMPLIC 04/05/2017 DILMA VINES DO Ot I10 ESSENTIAL (PRIMARY) HYPERTENSION 04/05/2017 DILMA VINES DO Ot 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 04/05/2017 DILMA VINES DO Ot I69.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 04/05/2017 DILMA VINES DO Ot I69.391 DYSPHAGIA FOLLOWING CEREBRAL INFARCTION 04/05/2017 DILMA VINES DO Ot I69.392 FACIAL WEAKNESS FOLLOWING CEREBRAL INFAR 04/05/2017 DILMA VINES DO Ot K62.5 HEMORRHAGE OF ANUS AND RECTUM 04/05/2017 DILMA VINES DO Ot M25.552 PAIN IN LEFT HIP 04/05/2017 DILMA VINES DO Ot R47.81 SLURRED SPEECH 04/05/2017 DILMA VINES DO Ot Z66 DO NOT RESUSCITATE 04/05/2017 DILMA VINES DO Ot Z79.84 PRISON (CURRENT) USE OF ORAL HYPOGLYC 04/05/2017 DILMA VINES DO Ot Z87.891 PERSONAL HISTORY OF NICOTINE DEPENDENCE 05/21/2017 JANETT GU MD Ot K80.00 CALCULUS OF GALLBLADDER W ACUTE CHOLECYS 06/12/2017 JANETT GU MD Ot K80.00 CALCULUS OF GALLBLADDER W ACUTE CHOLECYS 06/19/2017 JANETT GU MD Ot K80.00 CALCULUS OF GALLBLADDER W ACUTE CHOLECYS 06/20/2017 JOANNA SEVERINO Ot D64.9 ANEMIA, UNSPECIFIED 07/09/2017 JOANNA SEVERINO Ot D64.9 ANEMIA, UNSPECIFIED 07/17/2017 JOANNA SEVERINO Ot D64.9 ANEMIA, UNSPECIFIED 09/03/2017 LINDSEY BENNETT MD Ot 562.10 DIVERTICULOSIS COLON (W/O MENT OF HEMORR 09/03/2017 LINDSEY BENNETT MD Ot 575.8 DIS OF GALLBLADDER NEC 09/03/2017 LINDSEY BENNETT MD Ot 753.10 CYSTIC KIDNEY DISEASE, UNSPECIFIED 09/03/2017 LINDSEY BENNETT MD Ot V81.5 SCREEN FOR NEPHROPATHY 09/03/2017 JAN BERGER DO Ot 715.35 LOC OSTEOARTH NOS-PELVIS 09/03/2017 JAN BERGER DO Ot 791.9 ABN URINE FINDINGS NEC 09/03/2017 JAN BERGER DO Ot V72.63 PRE-PROCEDURAL LABORATORY EXAMINATION 09/03/2017 [facility] Ot V72.81 [id number] CARDIOVASCULAR 09/03/2017 [facility] JAN LOFTON Ot V72.83 EXAM PRE-OPERATIVE NEC 09/03/2017 [facility] Ot V74.8 SCREEN-BACTERIAL DIS NEC 09/03/2017 [facility] Ot 715.35 LOC [place]STEO[place] NOS-PELVIS 09/03/[facility] Ot V72.63 PRE-PROCEDURAL LABORATORY EXAMINATION 09/03/2017 [facility] Ot V74.8 SCREEN-BACTERIAL DIS NEC 09/03/2017 RICCARDO BENNETT, JANETT Cortez Ot 786.09 RESPIRATORY ABNORM NEC 09/03/2017 MANAV RUIZ K Ot 272.4 HYPERLIPIDEMIA NEC/NOS 09/03/2017 SELVIN SALAS MANAV K Ot 397.0 TRICUSPID VALVE DISEASE 09/03/2017 MANAV RUIZ K Ot 401.9 HYPERTENSION NOS 09/03/2017 SELVIN SALAS MANAV K Ot 424.0 MITRAL VALVE DISORDER 09/03/2017 SELVIN SALAS MANAV K Ot 786.09 RESPIRATORY ABNORM NEC 09/03/2017 JANETT GU MD Ot V76.12 OTH SCREEN MAMMO-MALIGN NEOPLASM OF [place] 09/03/2017 Ot 709.9 SKIN DISORDER NOS 09/03/2017 JANETT GU MD Ot Z12.31 ENCNTR SCREEN MAMMOGRAM FOR MALIGNANT NE 09/03/2017 JANETT GU MD Ot Z12.31 ENCNTR SCREEN MAMMOGRAM FOR MALIGNANT NE 09/03/2017 KATHERYN MCKEON MD Ot E78.2 MIXED HYPERLIPIDEMIA 09/03/2017 KATHERYN MCKEON MD Ot I10 ESSENTIAL (PRIMARY) HYPERTENSION 09/03/2017 KATHERYN MCKEON MD Ot R94.31 ABNORMAL ELECTROCARDIOGRAM [ECG] [EKG] 09/03/2017 KATHERYN MCKEON MD Ot E78.2 MIXED HYPERLIPIDEMIA 09/03/2017 KATHERYN MCKEON MD Ot I10 ESSENTIAL (PRIMARY) HYPERTENSION 09/03/2017 KATHERYN MCKEON MD Ot R94.31 ABNORMAL ELECTROCARDIOGRAM [ECG] [EKG] 09/03/2017 JANETT GU MD Ot K80.00 CALCULUS OF GALLBLADDER W ACUTE CHOLECYS 09/03/2017 JOANNA SEVERINO Ot D64.9 ANEMIA, UNSPECIFIED 09/16/2017 RICCARDO BENNETT, JANETT Cortez Ot K80.00 CALCULUS OF GALLBLADDER W ACUTE CHOLECYS 11/15/2017 LINDSEY BENNETT MD Ot 562.10 DIVERTICULOSIS COLON (W/O MENT OF HEMORR 11/15/2017 LINDSEY BENNETT MD Ot 575.8 DIS OF GALLBLADDER NEC 11/15/2017 LINDSEY BENNETT MD Ot 753.10 CYSTIC KIDNEY DISEASE, UNSPECIFIED 11/15/2017 LINDSEY BENNETT MD Ot V81.5 SCREEN FOR NEPHROPATHY 11/15/2017 [facility] JAN LOFTON Nimisha Ot 715.35 LOC OSTEOARTH NOS-PELVIS 11/15/2017 [facility] Bansal Ot 791.9 ABN URINE FINDINGS NEC 11/15/2017 [facility] DO JAN Bansal Ot V72.63 PRE-PROCEDURAL LABORATORY EXAMINATION 11/15/2017 [facility] DO JAN Bansal Ot V72.81 [id number] CARDIOVASCULAR 11/15/2017 [facility] DO JAN Bansal Ot V72.83 EXAM PRE-OPERATIVE NEC 11/15/2017 [facility] J[facility] Bansal Ot V74.8 SCREEN-BACTERIAL DIS NEC 11/15/2017 [facility] JAN Bansal Ot 715.35 LOC OSTEOARTH NOS-PELVIS 11/15/2017 [facility] JAN Bansal Ot V72.63 PRE-PROCEDURAL LABORATORY EXAMINATION 11/15/2017 [facility] DO JAN Bansal Ot V74.8 SCREEN-BACTERIAL DIS NEC 11/15/2017 RICCARDO BENNETT, JANETT Cortez Ot 786.09 RESPIRATORY ABNORM NEC 11/15/2017 MANAV RUIZ Ot 272.4 HYPERLIPIDEMIA NEC/NOS 11/15/2017 MANAV RUIZ Ot 397.0 TRICUSPID VALVE DISEASE 11/15/2017 MANAV RUIZ Ot 401.9 HYPERTENSION NOS 11/15/2017 MANAV RUIZ Ot 424.0 MITRAL VALVE DISORDER 11/15/2017 MANAV RUIZ Ot 786.09 RESPIRATORY ABNORM NEC 11/15/2017 JANETT GU MD Ot V76.12 OT SCREEN MAMMO-MALIGN NEOPLASM OF [place] 11/15/2017 Ot 709.9 SKIN DISORDER NOS 11/15/2017 JANETT GU MD, Ot Z12.31 ENCNTR SCREEN MAMMOGRAM FOR MALIGNANT NE 11/15/2017 JANETT GU MD, Ot Z12.31 ENCNTR SCREEN MAMMOGRAM FOR MALIGNANT NE 11/15/2017 KATHERYN MCKEON MD Ot E78.2 MIXED HYPERLIPIDEMIA 11/15/2017 KATHERYN MCKEON MD Ot I10 ESSENTIAL (PRIMARY) HYPERTENSION 11/15/2017 KATHERYN MCKEON MD Ot R94.31 ABNORMAL ELECTROCARDIOGRAM [ECG] [EKG] 11/15/2017 KATHERYN MCKEON MD Ot E78.2 MIXED HYPERLIPIDEMIA 11/15/2017 KATHERYN MCKEON MD Ot I10 ESSENTIAL (PRIMARY) HYPERTENSION 11/15/2017 KATHERYN MCKEON MD Ot R94.31 ABNORMAL ELECTROCARDIOGRAM [ECG] [EKG] 11/15/2017 JANETT GU MD Ot K80.00 CALCULUS OF GALLBLADDER W ACUTE CHOLECYS 11/15/2017 JOANNA SEVERINO Ot D64.9 ANEMIA, UNSPECIFIED 11/17/2017 ABDOULAYE PEREZ MD Ot D64.9 ANEMIA, UNSPECIFIED 11/17/2017 ABDOULAYE PEREZ MD Ot I10 ESSENTIAL (PRIMARY) HYPERTENSION 11/18/2017 JANETT GU MD, Ot D64.9 ANEMIA, UNSPECIFIED 11/18/2017 JANETT GU MD, Ot I10 ESSENTIAL (PRIMARY) HYPERTENSION 11/18/2017 ABDOULAYE PEREZ MD Ot D64.9 ANEMIA, UNSPECIFIED 11/18/2017 ABDOULAYE PEREZ MD, Ot I10 ESSENTIAL (PRIMARY) HYPERTENSION 12/09/2017 JANETT GU MD Ot D64.9 ANEMIA, UNSPECIFIED 12/09/2017 JANETT GU MD, Ot I10 ESSENTIAL (PRIMARY) HYPERTENSION 12/11/2017 JOANNA SEVERINO Ot I08.3 COMB RHEUMATIC DISORD OF MITRAL, AORTIC 12/11/2017 JOANNA SEVERINO Ot I50.9 HEART FAILURE, UNSPECIFIED 12/13/2017 ABDOULAYE PEREZ MD Ot D64.9 ANEMIA, UNSPECIFIED 12/13/2017 ABDOULAYE PEREZ MD Ot I10 ESSENTIAL (PRIMARY) HYPERTENSION 12/13/2017 DONALD BENNETT, LINDSEY Elaine Ot 562.10 DIVERTICULOSIS COLON (W/O MENT OF HEMORR 12/13/2017 DONALD BENNETT, LINDSEY Elaine Ot 575.8 DIS OF GALLBLADDER NEC 12/13/2017 DONALD BENNETT, LINDSEY Elaine Ot 753.10 CYSTIC KIDNEY DISEASE, UNSPECIFIED 12/13/2017 DONALD BENNETT, LINDSEY Elaine Ot V81.5 SCREEN FOR NEPHROPATHY 12/13/2017 [facility] Ot 715.35 LOC OSTEOARTH NOS-PELVIS 12/13/2017 [facility] Ot 791.9 ABN URINE FINDINGS NEC 12/13/2017 [facility] JAN Bansal Ot V72.63 PRE-PROCEDURAL LABORATORY EXAMINATION 12/13/2017 [facility] Bansal Ot V72.81 [id number] CARDIOVASCULAR 12/13/2017 [facility] Bansal Ot V72.83 EXAM PRE-OPERATIVE NEC 12/13/2017 [facility] Bansal Ot V74.8 SCREEN-BACTERIAL DIS NEC 12/13/2017 [facility] JAN Bansal Ot 715.35 LOC OSTEOARTH NOS-PELVIS 12/13/2017 [facility]AN Bansal Ot V72.63 PRE-PROCEDURAL LABORATORY EXAMINATION 12/13/2017 [facility] Bansal Ot V74.8 SCREEN-BACTERIAL DIS NEC 12/13/2017 RICCARDO BENNETT, JANETT Cortez Ot 786.09 RESPIRATORY ABNORM NEC 12/13/2017 MANAV RUIZ Ot 272.4 HYPERLIPIDEMIA NEC/NOS 12/13/2017 MANAV RUIZ Ot 397.0 TRICUSPID VALVE DISEASE 12/13/2017 MANAV RUIZ Ot 401.9 HYPERTENSION NOS 12/13/2017 MANAV RUIZ Ot 424.0 MITRAL VALVE DISORDER 12/13/2017 MANAV RUIZ Ot 786.09 RESPIRATORY ABNORM NEC 12/13/2017 JANETT GU MD Ot V76.12 OTH SCREEN MAMMO-MALIGN NEOPLASM OF [place]LE[place] 12/13/2017 Ot 709.9 SKIN DISORDER NOS 12/13/2017 JANETT GU MD Ot Z12.31 ENCNTR SCREEN MAMMOGRAM FOR MALIGNANT NE 12/13/2017 JANETT GU MD Ot Z12.31 ENCNTR SCREEN MAMMOGRAM FOR MALIGNANT NE 12/13/2017 LINDA BENNETT, KATHERYN Ceja Ot E78.2 MIXED HYPERLIPIDEMIA 12/13/2017 KATHERYN MCKEON MD, Ot I10 ESSENTIAL (PRIMARY) HYPERTENSION 12/13/2017 KATHERYN MCKEON MD, Ot R94.31 ABNORMAL ELECTROCARDIOGRAM [ECG] [EKG] 12/13/2017 KATHERYN MCKEON MD, Ot E78.2 MIXED HYPERLIPIDEMIA 12/13/2017 KATHERYN MCKEON MD, Ot I10 ESSENTIAL (PRIMARY) HYPERTENSION 12/13/2017 KATHERYN MCKEON MD, Ot R94.31 ABNORMAL ELECTROCARDIOGRAM [ECG] [EKG] 12/13/2017 JANETT GU MD, Ot K80.00 CALCULUS OF GALLBLADDER W ACUTE CHOLECYS 12/13/2017 JOANNA SEVERINO Ot D64.9 ANEMIA, UNSPECIFIED 12/13/2017 JOANNA SEVERINO Ot I08.3 COMB RHEUMATIC DISORD OF MITRAL, AORTIC 12/13/2017 JOANNA SEVERINO Ot I50.9 HEART FAILURE, UNSPECIFIED 12/13/2017 JANETT GU MD, Ot D64.9 ANEMIA, UNSPECIFIED 12/13/2017 JANETT GU MD, Ot I10 ESSENTIAL (PRIMARY) HYPERTENSION Procedures Code Description Performed By Performed On 00.81 LUKAS OF KNEE REPLACEMENT, TIBIAL COMPON 03/17/2012 00.82 LUKAS OF KNEE REPLACEMENT, FEMORAL COMPO 03/17/2012 83.64 OTHER SUTURE OF TENDON 03/17/2012 00.74 HIP BEARING SURFACE, METAL- ON-POLYETHYLE 04/06/2013 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 04/06/2013 Results Test Result Range Capillary blood glucose measurement by glucometer (mass/volume) - 03/31/17 15: 07 Capillary blood glucose measurement by glucometer (mass/volume) 119 mg/dL 70-110 Complete blood count (CBC) with automated white blood cell (WBC) differential - 03/31/17 15:09 Blood leukocytes automated count (number/volume) 8.5 10*3/uL 4.3-11.0 Blood erythrocytes automated count (number/volume) 3.61 10*6/uL 4.35-5.85 Venous blood hemoglobin measurement (mass/volume) 9.8 g/dL 11.5-16.0 Blood hematocrit (volume fraction) 30 % 35-52 Automated erythrocyte mean corpuscular volume 83 [foz_us] 80-99 Automated erythrocyte mean corpuscular hemoglobin (mass per erythrocyte) 27 pg 25-34 Automated erythrocyte mean corpuscular hemoglobin concentration measurement ( mass/volume) 33 g/dL 32-36 Automated erythrocyte distribution width ratio 16.4 % 10.0-14.5 Automated blood platelet count (count/volume) 322 10*3/uL 130-400 Automated blood platelet mean volume measurement 9.6 [foz_us] 7.4-10.4 Automated blood neutrophils/100 leukocytes 70 % 42-75 Automated blood lymphocytes/100 leukocytes 20 % 12-44 Blood monocytes/100 leukocytes 10 % 0-12 Automated blood eosinophils/100 leukocytes 0 % 0-10 Automated blood basophils/100 leukocytes 1 % 0-10 Blood neutrophils automated count (number/volume) 5.9 10*3 1.8-7.8 Blood lymphocytes automated count (number/volume) 1.7 10*3 1.0-4.0 Blood monocytes automated count (number/volume) 0.8 10*3 0.0-1.0 Automated eosinophil count 0.0 10*3/uL 0.0-0.3 Automated blood basophil count (count/volume) 0.0 10*3/uL 0.0-0.1 PT panel in platelet poor plasma by coagulation assay - 03/31/17 15:09 Prothrombin time (PT) in platelet poor plasma by coagulation assay 12.9 s 12.2-14.7 INR in platelet poor plasma or blood by coagulation assay 1.0 0.8-1.4 Activated partial thromboplastin time (aPTT) in platelet poor plasma bycoagulation assay - 03/31/17 15:09 Activated partial thromboplastin time (aPTT) in platelet poor plasma bycoagulation assay 29 s 24-35 Fibrin D-dimer FEU measurement in platelet poor plasma (mass/volume) - 15:09 Fibrin D-dimer FEU measurement in platelet poor plasma (mass/volume) 2.84 ug/mL 0.00-0.49 Comprehensive metabolic panel - 03/31/17 15:09 Serum or plasma sodium measurement (moles/volume) 131 mmol/L 135-145 Serum or plasma potassium measurement (moles/volume) 4.9 mmol/L 3.6-5.0 Serum or plasma chloride measurement (moles/volume) 100 mmol/L 98-107 Carbon dioxide 18 mmol/L 21-32 Serum or plasma anion gap determination (moles/volume) 13 mmol/L 5-14 Serum or plasma urea nitrogen measurement (mass/volume) 16 mg/dL 7-18 Serum or plasma creatinine measurement (mass/volume) 0.76 mg/dL 0.60-1.30 Serum or plasma urea nitrogen/creatinine mass ratio 21 NRG Serum or plasma creatinine measurement with calculation of estimated glomerular filtration rate > NRG Serum or plasma glucose measurement (mass/volume) 118 mg/dL 70-105 Serum or plasma calcium measurement (mass/volume) 9.4 mg/dL 8.5-10.1 Serum or plasma total bilirubin measurement (mass/volume) 0.5 mg/dL 0.1-1.0 Serum or plasma alkaline phosphatase measurement (enzymatic activity/volume) 155 U/L 40-136 Serum or plasma aspartate aminotransferase measurement (enzymatic activity/ volume) 74 U/L 5-34 Serum or plasma alanine aminotransferase measurement (enzymatic activity/volume ) 57 U/L 0-55 Serum or plasma protein measurement (mass/volume) 9.3 g/dL 6.4-8.2 Serum or plasma albumin measurement (mass/volume) 3.4 g/dL 3.2-4.5 Serum or plasma troponin i.cardiac measurement (mass/volume) - 03/31/17 15:09 Serum or plasma troponin i.cardiac measurement (mass/volume) < ng/ mL <0.30 Complete urinalysis with reflex to culture - 03/31/17 15:19 Urine color determination YELLOW NRG Urine clarity determination CLEAR NRG Urine pH measurement by test strip 7 5-9 Specific gravity of urine by test strip 1.010 1.016- 1.022 Urine protein assay by test strip, semi-quantitative 2+ NEGATIVE Urine glucose detection by automated test strip NEGATIVE NEGATIVE Erythrocytes detection in urine sediment by light microscopy 1+ NEGATIVE Urine ketones detection by automated test strip 3+ NEGATIVE Urine nitrite detection by test strip NEGATIVE NEGATIVE Urine total bilirubin detection by test strip NEGATIVE NEGATIVE Urine urobilinogen measurement by automated test strip (mass/volume) NORMAL NORMAL Urine leukocyte esterase detection by dipstick 1+ NEGATIVE Automated urine sediment erythrocyte count by microscopy (number/high power field) [HPF] NRG Automated urine sediment leukocyte count by microscopy (number/high power field ) [HPF] NRG Bacteria detection in urine sediment by light microscopy NEGATIVE NRG Squamous epithelial cells detection in urine sediment by light microscopy 10-25 NRG Crystals detection in urine sediment by light microscopy NONE NRG Casts detection in urine sediment by light microscopy NONE NRG Mucus detection in urine sediment by light microscopy NEGATIVE NRG Complete urinalysis with reflex to culture NO NRG Methicillin resistant Staphylococcus aureus (MRSA) screening culture - 20:00 MRSA SCREEN RESULT MRSA ISOLATED NRG Complete blood count (CBC) with automated white blood cell (WBC) differential - 04/01/17 05:16 Blood leukocytes automated count (number/volume) 11.1 10*3/uL 4.3-11.0 Blood erythrocytes automated count (number/volume) 2.50 10*6/uL 4.35-5.85 Venous blood hemoglobin measurement (mass/volume) 6.7 g/dL 11.5-16.0 Blood hematocrit (volume fraction) 21 % 35-52 Automated erythrocyte mean corpuscular volume 84 [foz_us] 80-99 Automated erythrocyte mean corpuscular hemoglobin (mass per erythrocyte) 27 pg 25-34 Automated erythrocyte mean corpuscular hemoglobin concentration measurement ( mass/volume) 32 g/dL 32-36 Automated erythrocyte distribution width ratio 16.1 % 10.0-14.5 Automated blood platelet count (count/volume) 349 10*3/uL 130-400 Automated blood platelet mean volume measurement 9.9 [foz_us] 7.4-10.4 Automated blood neutrophils/100 leukocytes 72 % 42-75 Automated blood lymphocytes/100 leukocytes 19 % 12-44 Blood monocytes/100 leukocytes 9 % 0-12 Automated blood eosinophils/100 leukocytes 0 % 0-10 Automated blood basophils/100 leukocytes 0 % 0-10 Blood neutrophils automated count (number/volume) 8.0 10*3 1.8-7.8 Blood lymphocytes automated count (number/volume) 2.1 10*3 1.0-4.0 Blood monocytes automated count (number/volume) 1.0 10*3 0.0-1.0 Automated eosinophil count 0.0 10*3/uL 0.0-0.3 Automated blood basophil count (count/volume) 0.0 10*3/uL 0.0-0.1 Whole blood basic metabolic panel - 04/01/17 05:16 Serum or plasma sodium measurement (moles/volume) 132 mmol/L 135-145 Serum or plasma potassium measurement (moles/volume) 4.8 mmol/L 3.6-5.0 Serum or plasma chloride measurement (moles/volume) 105 mmol/L 98-107 Carbon dioxide 18 mmol/L 21-32 Serum or plasma anion gap determination (moles/volume) 9 mmol/L 5-14 Serum or plasma urea nitrogen measurement (mass/volume) 39 mg/dL 7-18 Serum or plasma creatinine measurement (mass/volume) 0.74 mg/dL 0.60-1.30 Serum or plasma urea nitrogen/creatinine mass ratio 53 NRG Serum or plasma creatinine measurement with calculation of estimated glomerular filtration rate > NRG Serum or plasma glucose measurement (mass/volume) 133 mg/dL 70-105 Serum or plasma calcium measurement (mass/volume) 8.5 mg/dL 8.5-10.1 Serum or plasma phosphate measurement (mass/volume) - 04/01/17 05:16 Serum or plasma phosphate measurement (mass/volume) 2.6 mg/dL 2.3-4.7 Magnesium - 04/01/17 05:16 Magnesium 1.5 mg/dL 1.8-2.4 Lipid 1996 panel - 04/01/17 05:16 Serum or plasma triglyceride measurement (mass/volume) 138 mg/dL <150 Serum or plasma cholesterol measurement (mass/volume) 201 mg/dL < 200 Serum or plasma cholesterol in HDL measurement (mass/volume) 34 mg/ dL 40-60 Cholesterol in LDL [mass/volume] in serum or plasma by direct assay 149 mg/dL 1-129 Serum or plasma cholesterol in VLDL measurement (mass/volume) 28 mg/ dL 5-40 RED CELLS LEUKO REDUCED AS1 - 04/01/17 06:29 RED CELLS LEUKO REDUCED AS1 TRANSFUSED 04/01/17 1053 [facility] Blood type T Indirect antibody screen panel - 04/01/17 06:29 ABO+Rh group AP [facility] Transfusion band number [id number] [facility] Blood group antibody screen NEGATIVE [facility] Whole blood hemoglobin and hematocrit panel - 04/01/17 16:05 Venous blood hemoglobin measurement (mass/volume) 9.1 g/dL 11.5-16.0 Blood hematocrit (volume fraction) 27 % 35-52 Whole blood hemoglobin and hematocrit panel - 04/01/17 22:10 Venous blood hemoglobin measurement (mass/volume) 8.6 g/dL 11.5-16.0 Blood hematocrit (volume fraction) 25 % 35-52 Capillary blood glucose measurement by glucometer (mass/volume) - 04/02/17 00: 18 Capillary blood glucose measurement by glucometer (mass/volume) 98 mg/dL 70-110 Complete blood count (CBC) with automated white blood cell (WBC) differential - 04/02/17 03:40 Blood leukocytes automated count (number/volume) 8.2 10*3/uL 4.3-11.0 Blood erythrocytes automated count (number/volume) 2.87 10*6/uL 4.35-5.85 Venous blood hemoglobin measurement (mass/volume) 8.2 g/dL 11.5-16.0 Blood hematocrit (volume fraction) 25 % 35-52 Automated erythrocyte mean corpuscular volume 86 [foz_us] 80-99 Automated erythrocyte mean corpuscular hemoglobin (mass per erythrocyte) 29 pg 25-34 Automated erythrocyte mean corpuscular hemoglobin concentration measurement ( mass/volume) 33 g/dL 32-36 Automated erythrocyte distribution width ratio 16.2 % 10.0-14.5 Automated blood platelet count (count/volume) 203 10*3/uL 130-400 Automated blood platelet mean volume measurement 9.5 [foz_us] 7.4-10.4 Automated blood neutrophils/100 leukocytes 54 % 42-75 Automated blood lymphocytes/100 leukocytes 30 % 12-44 Blood monocytes/100 leukocytes 14 % 0-12 Automated blood eosinophils/100 leukocytes 2 % 0-10 Automated blood basophils/100 leukocytes 1 % 0-10 Blood neutrophils automated count (number/volume) 4.4 10*3 1.8-7.8 Blood lymphocytes automated count (number/volume) 2.4 10*3 1.0-4.0 Blood monocytes automated count (number/volume) 1.2 10*3 0.0-1.0 Automated eosinophil count 0.1 10*3/uL 0.0-0.3 Automated blood basophil count (count/volume) 0.1 10*3/uL 0.0-0.1 Whole blood basic metabolic panel - 04/02/17 03:40 Serum or plasma sodium measurement (moles/volume) 136 mmol/L 135-145 Serum or plasma potassium measurement (moles/volume) 3.8 mmol/L 3.6-5.0 Serum or plasma chloride measurement (moles/volume) 112 mmol/L 98-107 Carbon dioxide 15 mmol/L 21-32 Serum or plasma anion gap determination (moles/volume) 9 mmol/L 5-14 Serum or plasma urea nitrogen measurement (mass/volume) 32 mg/dL 7-18 Serum or plasma creatinine measurement (mass/volume) 0.66 mg/dL 0.60-1.30 Serum or plasma urea nitrogen/creatinine mass ratio 48 NRG Serum or plasma creatinine measurement with calculation of estimated glomerular filtration rate > NRG Serum or plasma glucose measurement (mass/volume) 100 mg/dL 70-105 Serum or plasma calcium measurement (mass/volume) 8.2 mg/dL 8.5-10.1 Serum or plasma phosphate measurement (mass/volume) - 04/02/17 03:40 Serum or plasma phosphate measurement (mass/volume) 2.2 mg/dL 2.3-4.7 Magnesium - 04/02/17 03:40 Magnesium 1.7 mg/dL 1.8-2.4 Capillary blood glucose measurement by glucometer (mass/volume) - 04/02/17 11: 49 Capillary blood glucose measurement by glucometer (mass/volume) 111 mg/dL 70-110 Capillary blood glucose measurement by glucometer (mass/volume) - 04/02/17 18: 15 Capillary blood glucose measurement by glucometer (mass/volume) 98 mg/dL 70-110 Capillary blood glucose measurement by glucometer (mass/volume) - 04/03/17 00: 04 Capillary blood glucose measurement by glucometer (mass/volume) 99 mg/dL 70-110 Complete blood count (CBC) with automated white blood cell (WBC) differential - 04/03/17 05:07 Blood leukocytes automated count (number/volume) 6.4 10*3/uL 4.3-11.0 Blood erythrocytes automated count (number/volume) 2.87 10*6/uL 4.35-5.85 Venous blood hemoglobin measurement (mass/volume) 8.1 g/dL 11.5-16.0 Blood hematocrit (volume fraction) 25 % 35-52 Automated erythrocyte mean corpuscular volume 86 [foz_us] 80-99 Automated erythrocyte mean corpuscular hemoglobin (mass per erythrocyte) 28 pg 25-34 Automated erythrocyte mean corpuscular hemoglobin concentration measurement ( mass/volume) 33 g/dL 32-36 Automated erythrocyte distribution width ratio 16.2 % 10.0-14.5 Automated blood platelet count (count/volume) 184 10*3/uL 130-400 Automated blood platelet mean volume measurement 10.0 [foz_us] 7.4-10.4 Automated blood neutrophils/100 leukocytes 57 % 42-75 Automated blood lymphocytes/100 leukocytes 27 % 12-44 Blood monocytes/100 leukocytes 13 % 0-12 Automated blood eosinophils/100 leukocytes 3 % 0-10 Automated blood basophils/100 leukocytes 1 % 0-10 Blood neutrophils automated count (number/volume) 3.7 10*3 1.8-7.8 Blood lymphocytes automated count (number/volume) 1.7 10*3 1.0-4.0 Blood monocytes automated count (number/volume) 0.8 10*3 0.0-1.0 Automated eosinophil count 0.2 10*3/uL 0.0-0.3 Automated blood basophil count (count/volume) 0.0 10*3/uL 0.0-0.1 Capillary blood glucose measurement by glucometer (mass/volume) - 04/03/17 05: 37 Capillary blood glucose measurement by glucometer (mass/volume) 100 mg/dL 70-110 Capillary blood glucose measurement by glucometer (mass/volume) - 04/03/17 12: 26 Capillary blood glucose measurement by glucometer (mass/volume) 103 mg/dL 70-110 Capillary blood glucose measurement by glucometer (mass/volume) - 04/03/17 15: 59 Capillary blood glucose measurement by glucometer (mass/volume) 130 mg/dL 70-110 Capillary blood glucose measurement by glucometer (mass/volume) - 04/04/17 00: 33 Capillary blood glucose measurement by glucometer (mass/volume) 107 mg/dL 70-110 Capillary blood glucose measurement by glucometer (mass/volume) - 04/04/17 05: 42 Capillary blood glucose measurement by glucometer (mass/volume) 111 mg/dL 70-110 Capillary blood glucose measurement by glucometer (mass/volume) - 04/04/17 20: 08 Capillary blood glucose measurement by glucometer (mass/volume) 105 mg/dL 70-110 Capillary blood glucose measurement by glucometer (mass/volume) - 04/05/17 00: 14 Capillary blood glucose measurement by glucometer (mass/volume) 101 mg/dL 70-110 Capillary blood glucose measurement by glucometer (mass/volume) - 04/05/17 04: 44 Capillary blood glucose measurement by glucometer (mass/volume) 104 mg/dL 70-110 Complete blood count (CBC) with automated white blood cell (WBC) differential - 04/05/17 07:07 Blood leukocytes automated count (number/volume) 7.1 10*3/uL 4.3-11.0 Blood erythrocytes automated count (number/volume) 2.86 10*6/uL 4.35-5.85 Venous blood hemoglobin measurement (mass/volume) 8.3 g/dL 11.5-16.0 Blood hematocrit (volume fraction) 25 % 35-52 Automated erythrocyte mean corpuscular volume 88 [foz_us] 80-99 Automated erythrocyte mean corpuscular hemoglobin (mass per erythrocyte) 29 pg 25-34 Automated erythrocyte mean corpuscular hemoglobin concentration measurement ( mass/volume) 33 g/dL 32-36 Automated erythrocyte distribution width ratio 17.3 % 10.0-14.5 Automated blood platelet count (count/volume) 207 10*3/uL 130-400 Automated blood platelet mean volume measurement 9.2 [foz_us] 7.4-10.4 Automated blood neutrophils/100 leukocytes 59 % 42-75 Automated blood lymphocytes/100 leukocytes 24 % 12-44 Blood monocytes/100 leukocytes 12 % 0-12 Automated blood eosinophils/100 leukocytes 4 % 0-10 Automated blood basophils/100 leukocytes 1 % 0-10 Blood neutrophils automated count (number/volume) 4.2 10*3 1.8-7.8 Blood lymphocytes automated count (number/volume) 1.7 10*3 1.0-4.0 Blood monocytes automated count (number/volume) 0.9 10*3 0.0-1.0 Automated eosinophil count 0.3 10*3/uL 0.0-0.3 Automated blood basophil count (count/volume) 0.1 10*3/uL 0.0-0.1 Comprehensive metabolic panel - 04/05/17 07:07 Serum or plasma sodium measurement (moles/volume) 135 mmol/L 135-145 Serum or plasma potassium measurement (moles/volume) 3.4 mmol/L 3.6-5.0 Serum or plasma chloride measurement (moles/volume) 106 mmol/L 98-107 Carbon dioxide 22 mmol/L 21-32 Serum or plasma anion gap determination (moles/volume) 7 mmol/L 5-14 Serum or plasma urea nitrogen measurement (mass/volume) 15 mg/dL 7-18 Serum or plasma creatinine measurement (mass/volume) 0.69 mg/dL 0.60-1.30 Serum or plasma urea nitrogen/creatinine mass ratio 22 NRG Serum or plasma creatinine measurement with calculation of estimated glomerular filtration rate > NRG Serum or plasma glucose measurement (mass/volume) 100 mg/dL 70-105 Serum or plasma calcium measurement (mass/volume) 8.5 mg/dL 8.5-10.1 Serum or plasma total bilirubin measurement (mass/volume) 0.4 mg/dL 0.1-1.0 Serum or plasma alkaline phosphatase measurement (enzymatic activity/volume) 96 U/L 40-136 Serum or plasma aspartate aminotransferase measurement (enzymatic activity/ volume) 32 U/L 5-34 Serum or plasma alanine aminotransferase measurement (enzymatic activity/volume ) 30 U/L 0-55 Serum or plasma protein measurement (mass/volume) 6.6 g/dL 6.4-8.2 Serum or plasma albumin measurement (mass/volume) 2.9 g/dL 3.2-4.5 IRON TEST - 04/05/17 07:07 Serum or plasma iron measurement (mass/volume) 19 % 35- 180 Capillary blood glucose measurement by glucometer (mass/volume) - 04/05/17 12: 05 Capillary blood glucose measurement by glucometer (mass/volume) 157 mg/dL 70-110 RED CELLS LEUKO REDUCED AS1 - 06/19/17 14:35 RED CELLS LEUKO REDUCED AS1 TRANSFUSED 06/19/17 1516 [facility] Blood type T Indirect antibody screen panel - 06/19/17 14:35 ABO+Rh group AP [facility] Transfusion band number [id number] [facility] Blood group antibody screen NEGATIVE [facility] Whole blood hemoglobin and hematocrit panel - 06/19/17 17:50 Venous blood hemoglobin measurement (mass/volume) 7.5 g/dL 11.5-16.0 Blood hematocrit (volume fraction) 24 % 35-52 Complete blood count (CBC) with automated white blood cell (WBC) differential - 11/15/17 11:25 Blood leukocytes automated count (number/volume) 4.1 10*3/uL 4.3-11.0 Blood erythrocytes automated count (number/volume) 3.07 10*6/uL 4.35-5.85 Venous blood hemoglobin measurement (mass/volume) 9.3 g/dL 11.5-16.0 Blood hematocrit (volume fraction) 29 % 35-52 Automated erythrocyte mean corpuscular volume 94 [foz_us] 80-99 Automated erythrocyte mean corpuscular hemoglobin (mass per erythrocyte) 30 pg 25-34 Automated erythrocyte mean corpuscular hemoglobin concentration measurement ( mass/volume) 32 g/dL 32-36 Automated erythrocyte distribution width ratio 22.2 % 10.0-14.5 Automated blood platelet count (count/volume) 148 10*3/uL 130-400 Automated blood platelet mean volume measurement 10.4 [foz_us] 7.4-10.4 Automated blood neutrophils/100 leukocytes 55 % 42-75 Automated blood lymphocytes/100 leukocytes 30 % 12-44 Blood monocytes/100 leukocytes 11 % 0-12 Automated blood eosinophils/100 leukocytes 3 % 0-10 Automated blood basophils/100 leukocytes 1 % 0-10 Blood neutrophils automated count (number/volume) 2.3 10*3 1.8-7.8 Blood lymphocytes automated count (number/volume) 1.2 10*3 1.0-4.0 Blood monocytes automated count (number/volume) 0.5 10*3 0.0-1.0 Automated eosinophil count 0.1 10*3/uL 0.0-0.3 Automated blood basophil count (count/volume) 0.1 10*3/uL 0.0-0.1 Whole blood basic metabolic panel - 11/15/17 11:25 Serum or plasma sodium measurement (moles/volume) 135 mmol/L 135-145 Serum or plasma potassium measurement (moles/volume) 3.7 mmol/L 3.6-5.0 Serum or plasma chloride measurement (moles/volume) 104 mmol/L 98-107 Carbon dioxide 25 mmol/L 21-32 Serum or plasma anion gap determination (moles/volume) 6 mmol/L 5-14 Serum or plasma urea nitrogen measurement (mass/volume) 18 mg/dL 7-18 Serum or plasma creatinine measurement (mass/volume) 1.28 mg/dL 0.60-1.30 Serum or plasma urea nitrogen/creatinine mass ratio 14 NRG Serum or plasma creatinine measurement with calculation of estimated glomerular filtration rate 40 NRG Serum or plasma glucose measurement (mass/volume) 109 mg/dL 70-105 Serum or plasma calcium measurement (mass/volume) 8.0 mg/dL 8.5-10.1 Encounters ACCT No. Visit Date/Time Discharge Status Pt. Type Provider Facility Loc./Unit Complaint [id number] 12/13/2017 11:50:00 12/13/2017 23:59:59 CLS Outpatient ABDOULAYE PEREZ MD [facility] ONC [id number] 12/09/2017 09:11:00 12/09/2017 23:59:59 CLS Outpatient JOANNA SEVERINO [facility] CARD CHF [id number] 11/15/2017 10:27:00 11/17/2017 00:01:00 DIS Outpatient ABDOULAYE PEREZ MD [facility] ONC [id number] 11/15/2017 10:36:00 11/15/2017 23:59:59 CLS Outpatient JANETT GU MD [facility] LAB [id number] 06/19/2017 14:19:00 06/19/2017 23:59:59 CLS Outpatient JOANNA SEVERINO [facility] SDC ANEMIC [id number] 05/20/2017 08:28:00 05/20/2017 23:59:59 CLS Outpatient JANETT GU MD [facility] RAD ELEVATED LIVER ENZYMES [id number] 04/03/2017 12:05:00 04/05/2017 13:35:00 DIS Inpatient DILMA VINES DO [facility] 4TH SWB [id number] 03/31/2017 16:40:00 04/03/2017 12:04:00 DIS Inpatient JOHN CHAPMAN MD [facility] 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 [id number] 10/03/2016 08:07:00 10/03/2016 23:59:59 CLS Outpatient KATHERYN MCKEON MD [facility] CARD R94.31 ABNORMAL EKG [id number] 07/11/2016 07:38:00 07/11/2016 23:59:59 CLS Outpatient KATHERYN MCKEON MD [facility] CARD R94.31,I10,E78.2 [id number] 03/28/2016 09:41:00 03/28/2016 23:59:59 CLS Outpatient JANETT GU MD [facility] RAD SCREENING [id number] 11/25/2014 10:20:00 11/25/2014 23:59:59 CLS Outpatient JANETT GU MD [facility] RAD SCREENING [id number] 09/17/2013 14:56:00 09/17/2013 23:59:59 CLS Outpatient JANETT GU MD [facility] RAD SCREENING [id number] 08/19/2013 13:47:00 08/19/2013 23:59:59 CLS Outpatient MANAV RUIZ [facility] CARD HTN,HLP [id number] 07/09/2013 10:16:00 07/09/2013 23:59:59 CLS Outpatient JANETT GU MD [facility] RAD DYSPNEA [id number] 04/06/2013 10:30:00 04/09/2013 16:00:00 DIS Inpatient SATTERJAN CHAMBERS DO [facility] SURGICAL LEFT HIP DJD [id number] 04/01/2013 11:46:00 04/01/2013 23:59:59 CLS Outpatient SANTOSHTERJAN CHAMBERS DO [facility] PREOP LEFT HIP DJD [id number] 03/04/2013 12:01:00 03/04/2013 23:59:59 CLS Outpatient SATTERTRISH LOFTON JAN Bansal [facility] PREOP LEFT HIP DJD [id number] 08/29/2012 12:28:00 08/29/2012 23:59:59 CLS Outpatient LINDSEY BENNETT MD [facility] RAD LT KIDNEY LESION [id number] 05/05/2014 13:41:00 Document Registration [id number] 03/21/2012 13:48:00 Document Registration [id number] 03/17/2012 08:16:00 Document Registration [id number] 03/07/2012 09:44:00 Document Registration [id number] 03/04/2012 09:46:00 Document Registration [id number] 03/04/2012 09:39:00 Document Registration [id number] 02/08/2012 14:48:00 Document Registration [id number] 06/12/2011 13:24:00 Document Registration [id number] 04/20/2011 13:22:00 Document Registration [id number] 12/20/2010 10:56:00 Document Registration [id number] 12/07/2010 12:23:00 Document Registration [id number] 11/22/2010 10:14:00 Document Registration [id number] 11/25/2014 10:26:36 ACT Document Registration
[2018-01-18 17:12] LABS: BILIRUBIN,URINE NEGATIVE (NEGATIVE); CLARITY,URINE VERY CLOUDY; COLOR,URINE YELLOW; GLUCOSE, URINE (UA) NEGATIVE (NEGATIVE); KETONES,URINE NEGATIVE (NEGATIVE); LEUKOCYTE ESTERASE ,URINE 3+ (NEGATIVE); NITRITE,URINE POSITIVE (NEGATIVE); PH,URINE 6 (5-9); PROTEIN,URINE 3+ (NEGATIVE); UROBILINOGEN,URINE 1 MG/DL (NORMAL)
[2018-01-18 17:28] LABS: BACTERIA,URINE MODERATE /HPF; WBC,URINE TNTC /HPF
[2018-01-18] MEDS ORDERED: cefTRIAXone FOR IV USE 2,000 MG in NS (IVPB) 50 ML IV ONE (18:00)
--- OUTSIDE RECORDS SUMMARY | 2018-01-18 19:12 | XMS REPORT | Continuity of Care Document ---
Author Author [facility] Organization [facility] Address Unknown Phone Unavailable Allergies Active Description Code Type Severity Reaction Onset Reported/Identified Relationship to Patient Clinical Status Yes simvastatin [id number] Drug Allergy Unknown ALLERGIC TO "ST 09/18/2005 Yes oxycodone [id number] Drug Allergy Unknown N/A 09/21/2005 Yes morphine [id number] Drug Allergy Unknown HIVES 03/31/2017 Yes Penicillins [id number] Drug Allergy Unknown HIVES 03/31/2017 Yes STATINS STATINS Unknown INCREASED LIVER 03/31/2017 Yes sulfamethoxazole [id number] Drug Allergy Unknown NAUSEA, DIARRHE 2017 Yes trimethoprim [id number] Drug Allergy Unknown NAUSEA, DIARRHE 03/31/2017 Medications [...] BERGER DO Ot 414.01 CORONARY ATHEROSCLEROSIS OF [place] CORON 04/09/2013 JAN BERGER DO Ot 564.00 [...] MD Ot V81.5 SCREEN FOR NEPHROPATHY 03/27/[facility] Ot 715.35 LOC OSTEOARTH NOS-PELVIS 03/27/2016 [facility] JAN LOFTON Ot 791.9 ABN URINE FINDINGS NEC 03/27/2016 [facility] Ot V72.63 PRE-PROCEDURAL LABORATORY EXAMINATION 03/27/2016 JAN BERGER DO Ot V72.81 [id number]-[id number] CARDIOVASCULAR 03/27/2016 [facility] JAN LOFTON Ot V72.83 EXAM PRE-OPERATIVE NEC 03/27/2016 [facility] JAN LOFTON Ot V74.8 SCREEN-BACTERIAL DIS NEC 03/27/2016 [facility] Ot 715.35 LOC OSTEOARTH NOS-PELVIS 03/27/2016 [facility] JAN LOFTON Ot V72.63 PRE-PROCEDURAL LABORATORY EXAMINATION 03/27/2016 [facility] DO Ot V74.8 SCREEN-BACTERIAL DIS [...] MALAISE 04/02/2017 JOHN CHAPMAN MD Ot Z79.84 DETENTION (CURRENT) USE OF ORAL HYPOGLYC 04/02/2017 JOHN [...] MD Ot R29.810 FACIAL WEAKNESS 04/02/2017 JOHN CHAPMAN MD Ot R53.81 OTHER MALAISE 04/02/2017 JOHN CHAPMAN MD Ot Z79.84 DETENTION (CURRENT) USE OF ORAL HYPOGLYC 04/02/2017 JOHN [...] Ot M48.00 SPINAL STENOSIS, SITE UNSPECIFIED 04/03/2017 JONH CHAPMAN MD Ot R29.718 NIHSS SCORE 18 04/03/2017 JOHN CHAPMAN MD Ot R29.810 FACIAL WEAKNESS 04/03/2017 JOHN CHAPMAN MD Ot R53.81 OTHER MALAISE 04/03/2017 JOHN CHAPMAN MD Ot Z79.84 ROOFER GYPSUM (CURRENT) USE OF ORAL HYPOGLYC 04/03/2017 JOHN [...] RESUSCITATE 04/03/2017 JOHN CHAPMAN MD Ot Z79.84 ROOFER GYPSUM (CURRENT) USE OF ORAL HYPOGLYC 04/03/2017 JOHN [...] RESUSCITATE 04/05/2017 DILMA VINES DO Ot Z79.84 DETENTION (CURRENT) USE OF ORAL HYPOGLYC 04/05/2017 DILMA [...] DO Ot V72.63 PRE-PROCEDURAL LABORATORY EXAMINATION 09/03/2017 [facility] Ot V72.81 [id number] CARDIOVASCULAR 09/03/2017 [facility] JAN LOFTON Ot V72.83 EXAM PRE-OPERATIVE NEC 09/03/2017 [facility] DO Ot V74.8 SCREEN-BACTERIAL DIS NEC 09/03/2017 [facility] DO Ot 715.35 LOC OSTEOARTH NOS-PELVIS 09/03/2017 [facility] Ot V72.63 PRE-PROCEDURAL LABORATORY EXAMINATION 09/03/2017 [facility] Ot V74.8 SCREEN-BACTERIAL DIS [...] Nimisha Ot 715.35 LOC OSTEOARTH NOS-PELVIS 11/15/2017 [facility] JAN Bansal Ot 791.9 ABN URINE FINDINGS NEC 11/15/2017 [facility] DO JAN Bansal Ot V72.63 PRE-PROCEDURAL LABORATORY EXAMINATION 11/15/2017 [facility] DO JAN Bansal Ot V72.81 [id number] CARDIOVASCULAR 11/15/2017 [facility] DO JAN Bansla Ot V72.83 EXAM PRE-OPERATIVE NEC 11/15/2017 [facility] DO JAN Bansal Ot V74.8 SCREEN-BACTERIAL DIS NEC 11/15/2017 [facility] DO JAN Bansal Ot 715.35 LOC OSTEOARTH NOS-PELVIS 11/15/2017 [facility] DO JAN Bansal Ot V72.63 PRE-PROCEDURAL LABORATORY EXAMINATION 11/15/2017 [facility] DO JAN Bansal Ot V74.8 SCREEN-BACTERIAL [...] Elaine Ot V81.5 SCREEN FOR NEPHROPATHY 12/13/2017 [facility] DO Ot 715.35 LOC OSTEOARTH NOS-PELVIS 12/13/2017 [facility] Ot 791.9 ABN URINE FINDINGS NEC 12/13/2017 [facility] JAN Bansal Ot V72.63 PRE-PROCEDURAL LABORATORY EXAMINATION 12/13/2017 [facility] JAN Bansal Ot V72.81 [id number] CARDIOVASCULAR 12/13/2017 [facility] JAN Bansal Ot V72.83 EXAM PRE-OPERATIVE NEC 12/13/2017 [facility] JAN Bansal Ot V74.8 SCREEN-BACTERIAL DIS NEC 12/13/2017 [facility] JAN Bansal Ot 715.35 LOC OSTEOARTH NOS-PELVIS 12/13/2017 [facility] JAN Bansal Ot V72.63 PRE-PROCEDURAL LABORATORY EXAMINATION 12/13/2017 [facility] JAN Bansal Ot V74.8 SCREEN-BACTERIAL [...] MD, Ot I10 ESSENTIAL (PRIMARY) HYPERTENSION 12/13/2017 KATHERNY MCKEON MD, Ot R94.31 ABNORMAL ELECTROCARDIOGRAM [ECG] [...] CELLS LEUKO REDUCED AS1 TRANSFUSED 04/01/17 1053 [facility] Blood type T Indirect antibody screen panel - 04/01/17 06:29 ABO+Rh group AP [facility] Transfusion band number [id number] [facility] Blood group antibody screen NEGATIVE [facility] Whole blood hemoglobin and hematocrit panel - [...] CELLS LEUKO REDUCED AS1 TRANSFUSED 06/19/17 1516 [facility] Blood type T Indirect antibody screen panel - 06/19/17 14:35 ABO+Rh group AP [facility] Transfusion band number [id number] [facility] Blood group antibody screen NEGATIVE [facility] Whole blood hemoglobin and hematocrit panel - [...] Status Pt. Type Provider Facility Loc./Unit Complaint [id number] 12/13/2017 11:50:00 12/13/2017 23:59:59 CLS Outpatient ABDOULAYE PEREZ MD [facility] ONC [id number] 12/09/2017 09:11:00 12/09/2017 23:59:59 CLS Outpatient JOANNA SEVERINO [facility] CARD CHF [id number] 11/15/2017 10:27:00 11/17/2017 00:01:00 DIS Outpatient ABDOULAYE PEREZ MD [facility] ONC [id number] 11/15/2017 10:36:00 11/15/2017 23:59:59 CLS Outpatient JANETT GU MD [facility] LAB [id number] 06/19/2017 14:19:00 06/19/2017 23:59:59 CLS Outpatient JOANNA SEVERINO [facility] SDC ANEMIC [id number] 05/20/2017 08:28:00 05/20/2017 23:59:59 CLS Outpatient JANETT GU MD [facility] RAD ELEVATED LIVER ENZYMES [id number] 04/03/2017 12:05:00 04/05/2017 13:35:00 DIS Inpatient DILMA VINES DO [facility] 4TH SWB [id number] 03/31/2017 16:40:00 04/03/2017 12:04:00 DIS Inpatient JOHN CHAPMAN MD [facility] 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 [id number] 10/03/2016 08:07:00 10/03/2016 23:59:59 CLS Outpatient KATHERYN MCKEON MD [facility] CARD R94.31 ABNORMAL EKG [id number] 07/11/2016 07:38:00 07/11/2016 23:59:59 CLS Outpatient KATHERYN MCKEON MD [facility] CARD R94.31,I10,E78.2 [id number] 03/28/2016 09:41:00 03/28/2016 23:59:59 CLS Outpatient JANETT GU MD [facility] RAD SCREENING [id number] 11/25/2014 10:20:00 11/25/2014 23:59:59 CLS Outpatient JANETT GU MD [facility] RAD SCREENING [id number] 09/17/2013 14:56:00 09/17/2013 23:59:59 CLS Outpatient JANETT GU MD [facility] RAD SCREENING [id number] 08/19/2013 13:47:00 08/19/2013 23:59:59 CLS Outpatient MANAV RUIZ [facility] CARD HTN,HLP [id number] 07/09/2013 10:16:00 07/09/2013 23:59:59 CLS Outpatient JANETT GU MD [facility] RAD DYSPNEA [id number] 04/06/2013 10:30:00 04/09/2013 16:00:00 DIS Inpatient SATTERJAN CHAMBERS DO [facility] SURGICAL LEFT HIP DJD [id number] 04/01/2013 11:46:00 04/01/2013 23:59:59 CLS Outpatient SANTOSHTERJAN CHAMBERS DO [facility] PREOP LEFT HIP DJD [id number] 03/04/2013 12:01:00 03/04/2013 23:59:59 CLS Outpatient SATTERTRISH [place]FTON JAN Bansal [facility] PREOP LEFT HIP DJD [id number] 08/29/2012 12:28:00 08/29/2012 23:59:59 CLS Outpatient LINDSEY BENNETT MD [facility] RAD LT KIDNEY LESION [id number] 05/05/2014 13:41:00 Document Registration [id number] 03/21/2012 13:48:00 Document Registration [id number] 03/17/2012 08:16:00 Document Registration [id number] 03/07/2012 09:44:00 Document Registration [id number] 03/04/2012 09:46:00 Document Registration [id number] 03/04/2012 09:39:00 Document Registration [id number] 02/08/2012 14:48:00 Document Registration [id number] 06/12/2011 13:24:00 Document Registration [id number] 04/20/2011 13:22:00 Document Registration [id number] 12/20/2010 10:56:00 Document Registration [id number] 12/07/2010 12:23:00 Document Registration [id number] 11/22/2010 10:14:00 Document Registration [id number] 11/25/2014 10:26:36 ACT Document Registration
[2018-01-18 21:00] VITALS: BP 121/56
[2018-01-18] MEDS: NS IV 1000 ML 1,000 ML IV SCH (22:08)
[2018-01-19] VITALS: BP 125/56
[2018-01-19] MEDS ORDERED: POLY17PO6 PO (00:11)
[2018-01-19] MEDS ORDERED: SPIR25TA5 PO (00:11)
[2018-01-19] MEDS ORDERED: GABA-488 PO (00:11)
[2018-01-19] MEDS ORDERED: FERR325T18 PO (00:11)
[2018-01-19] MEDS ORDERED: GABA600T2 PO (00:11)
[2018-01-19] MEDS ORDERED: FURO40TA4 PO (00:11)
[2018-01-19] MEDS ORDERED: MAGN355O5 PO (00:11)
[2018-01-19] MEDS ORDERED: POTA-51 PO (00:11)
[2018-01-19] MEDS ORDERED: DOCU-143 PO (00:11)
[2018-01-19] MEDS ORDERED: ASPI-586 PO (00:11)
[2018-01-19] MEDS ORDERED: OMEP20TA7 PO (00:11)
[2018-01-19] MEDS ORDERED: HYDR-4226 PO (00:11)
[2018-01-19] MEDS ORDERED: NEBI5TAB8 PO (00:12)
[2018-01-19] MEDS: ACETAMINOPHEN 325 MG TABLET PO PRN (00:21)
[2018-01-19 04:00] VITALS: BP 125/59
[2018-01-19 06:33] LABS: BILIRUBIN,URINE NEGATIVE (NEGATIVE); CLARITY,URINE VERY CLOUDY; COLOR,URINE AMBER; GLUCOSE, URINE (UA) NEGATIVE (NEGATIVE); KETONES,URINE NEGATIVE (NEGATIVE); LEUKOCYTE ESTERASE ,URINE 3+ (NEGATIVE); NITRITE,URINE NEGATIVE (NEGATIVE); PH,URINE 5 (5-9); PROTEIN,URINE 3+ (NEGATIVE); UROBILINOGEN,URINE 4 MG/DL (NORMAL)
[2018-01-19 06:44] LABS: BACTERIA,URINE LARGE /HPF; RBC,URINE 25-50 /HPF; WBC,URINE TNTC /HPF
[2018-01-19 08:00] VITALS: BP 109/57
[2018-01-19 10:17] LABS: BASOPHILS % (AUTO) 0 % (0-10); EOSINOPHILS % (AUTO) 0 % (0-10); HEMATOCRIT 30 % (35-52); HEMOGLOBIN 9.8 G/DL (11.5-16.0); LYMPHOCYTES # (AUTO) 0.9 X 10^3 (1.0-4.0); LYMPHOCYTES % (AUTO) 9 % (12-44); MEAN CORPUSCULAR HEMOGLOBIN 31 PG (25-34); MEAN CORPUSCULAR HGB CONC 32 G/DL (32-36); MEAN CORPUSCULAR VOLUME 95 FL (80-99); MEAN PLATELET VOLUME 9.9 FL (7.4-10.4); MONOCYTES # (AUTO) 1.1 X 10^3 (0.0-1.0); MONOCYTES % (AUTO) 10 % (0-12); NEUTROPHILS # (AUTO) 8.4 X 10^3 (1.8-7.8); NEUTROPHILS % (AUTO) 81 % (42-75); PLATELET COUNT 109 10^3/uL (130-400); RED CELL DISTRIBUTION WIDTH 14.8 % (10.0-14.5); WHITE BLOOD COUNT 10.4 10^3/uL (4.3-11.0)
[2018-01-19] MEDS: NS IV 1000 ML 1,000 ML IV SCH ×2 (11:37→23:41)
[2018-01-19 12:00] VITALS: BP 119/58
--- NOTE | 2018-01-19 12:00 | History & Physical-Hospitalist ---
History of Present Illness HPI/Chief Complaint The patient is a frail 87-year-old white female resident at [facility] who noted increased burning frequency and dysuria. No documented chills or fever were reported. She apparently has had urosepsis in the past and was transferred emergency room. Upon my arrival this morning she was quite somnolent was easily arousable that are very poor historian aggravated by a previous right-sided CVA with dense left-sided hemiparesis. She is nonambulatory and requires Era lift for transfers according to staff. She voices no current complaints other than fatigue. Date Seen 01/19/18 Time Seen by a Provider: 10:00 Attending Physician Jimmy Sutton MD PCP Alverto Baeza MD Referring Physician Date of Admission Jan 18, 2018 at 18:00 Home Medications & Allergies Home Medications Reviewed patient Home Medication Reconciliation performed by pharmacy medication reconciliations medical technician and/or nursing. Patients Allergies have been reviewed. Allergies Allergies Coded Allergies Penicillins (Unverified Allergy, Unknown, HIVES, 03/31/17) morphine (Unverified Allergy, Unknown, HIVES, 03/31/17) oxycodone (Verified Allergy, Unknown, 09/21/05) simvastatin (Verified Allergy, Unknown, ALLERGIC TO "STATINS", 09/18/05) sulfamethoxazole (Verified Adverse Reaction, Unknown, NAUSEA, DIARRHEA, , 03/31) trimethoprim (Verified Adverse Reaction, Unknown, NAUSEA, DIARRHEA, , 03/31/17) Uncoded Allergies STATINS ( Allergy, Unknown, INCREASED LIVER ENZYMES, 03/31/17) Past Lurapqv-Izufgb-Msobmf Hx Past Med/Social Hx: Reviewed Nursing Past Med/Soc Hx, Reviewed and Corrections made Patient Social History Alcohol Use: Denies Use Recreational Drug Use: No Smoking Status: Never a Smoker Former Smoker, Quit: Apr 01, 1976 Type Used: Cigarettes 2nd Hand Smoke Exposure: No Physical Abuse Screen: No Sexual Abuse: No Recent Foreign Travel: No Contact w/other who traveled: No Recent Hopitalizations: Yes (BACK SURG) Recent Infectious Disease Expo: No Immunizations Up To Date Tetanus Booster (TDap): Less than 5yrs Date of Pneumonia Vaccine: Mar 21, 2010 Date of Influenza Vaccine: Apr 02, 2017 Seasonal Allergies Seasonal Allergies: No Past Medical History : No Reproductive: No Menopausal Endocrine: Diabetes, Non-Insulin dep HEENT: Cataract Loss of Vision: Denies Hearing Impairment: Denies History of Blood Disorders: No Adverse Reaction to Blood Gerber: No Family History Cancer 09 BROTHER Family history: Cardiovascular disease 03 FATHER 03 MOTHER Family history: Diabetes mellitus 03 MOTHER 09 BROTHER Cancer, CAD Over 55 Years Old Review of Systems Constitutional: no symptoms reported Physical Exam Physical Exam Vital Signs Vital Signs - First Documented 01/18/18 16:02 Temp 97.9 Pulse 79 Resp 20 B/P (MAP) 136/101 (113) Pulse Ox 100 O2 Delivery Room Air Capillary Refill : Less Than 3 Seconds Height, Weight, BMI Height: 5'7.00" Weight: 209lbs. 0.0oz. 94.433417bj; 32.7 BMI Method:Stated General Appearance: No Apparent Distress, Chronically ill Neck: Full Range of Motion, Normal Inspection, Non Tender, Supple, Carotid Bruit Respiratory: Chest Non Tender, Lungs Clear, Normal Breath Sounds, No Accessory Muscle Use, No Respiratory Distress Cardiovascular: Regular Rate, Rhythm, No Gallop, No JVD, Systolic Murmur (2-3/ 6 heard best over the aortic outflow tract no S3 or S4 appreciated.) Gastrointestinal: Normal Bowel Sounds, No Organomegaly, No Pulsatile Mass, Non Tender, Soft Extremity: Non Tender, No Calf Tenderness, Other (There is 2+ pretibial edema to the upper tibia without evidence for significant venous insufficiency change. Extremity wasting is noted most markedly on the left with dorsiflexion position with foot with evidence for Achilles tendon contracture. No sores or erythema noted.) Neurologic/Psychiatric: Other (Somnolent but easily arousable oriented 1) Results Results/Procedures Labs Laboratory Tests 01/18/18 16:25 01/19/18 10:05 Patient resulted labs reviewed. Assessment/Plan Admission Diagnosis A/P 1. Urinary tract infection continue Rocephin culture pending. 2. 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 Anemia likely multifactorial defer to PCP as I suspect this is long-standing 4. Mild thrombocytopenia without evidence for bleeding possibly aggravated by number 1 we'll repeat CBC and basic metabolic panel in the morning. 5. Consideration for addressing CODE STATUS patient to somnolent to render informed consent this morning. Admission Status: Observation Reason for Inpatient Admission: See number 1. Clinical Quality Measures DVT/VTE Risk/Contraindication: Risk Factor Score Per Nursin RFS Level Per Nursing on Admit: 4+=Very High JIMMY SUTTON MD Jan 19, 2018 12:00
[2018-01-19] MEDS ORDERED: HYDROcodone/APAP 5 MG/325 MG (LORTAB) TAB PO PRN (12:45)
[2018-01-19] MEDS: ENOXAPARIN 40 MG/0.4 ML (LOVENOX) SYR SC SCH (13:25)
[2018-01-19 15:30] VITALS: BP 105/56
[2018-01-19] MEDS: cefTRIAXone 1 GM/NS 50 ML IVPB IV SCH ×2 (17:08)
[2018-01-19 19:25] VITALS: BP 121/57
[2018-01-20] VITALS (8 sets, daily range): BP systolic 85–133; BP diastolic 40–60
[2018-01-20 08:12] LABS: CALCIUM 7.8 MG/DL (8.5-10.1); CREATININE SERUM 1.04 MG/DL (0.60-1.30); POTASSIUM 3.7 MMOL/L (3.6-5.0)
[2018-01-20 08:35] LABS: BASOPHILS % (AUTO) 0 % (0-10); EOSINOPHILS % (AUTO) 0 % (0-10); HEMATOCRIT 28 % (35-52); HEMOGLOBIN 9.2 G/DL (11.5-16.0); LYMPHOCYTES # (AUTO) 1.6 X 10^3 (1.0-4.0); LYMPHOCYTES % (AUTO) 11 % (12-44); MEAN CORPUSCULAR HEMOGLOBIN 31 PG (25-34); MEAN CORPUSCULAR HGB CONC 33 G/DL (32-36); MEAN CORPUSCULAR VOLUME 94 FL (80-99); MEAN PLATELET VOLUME 9.6 FL (7.4-10.4); MONOCYTES # (AUTO) 1.4 X 10^3 (0.0-1.0); MONOCYTES % (AUTO) 9 % (0-12); NEUTROPHILS # (AUTO) 11.9 X 10^3 (1.8-7.8); NEUTROPHILS % (AUTO) 80 % (42-75); PLATELET COUNT 113 10^3/uL (130-400); RED BLOOD COUNT 2.98 10^6/uL (4.35-5.85); RED CELL DISTRIBUTION WIDTH 14.5 % (10.0-14.5); WHITE BLOOD COUNT 14.9 10^3/uL (4.3-11.0)
[2018-01-20 08:39] LABS: SMEAR SCAN COMMENT YES
[2018-01-20] MEDS ORDERED: ACET-2267 PO (08:41)
[2018-01-20] MEDS ORDERED: GABA-488 PO (08:41)
[2018-01-20] MEDS: ASPIRIN E.C. 81 MG (ECOTRIN) TAB PO SCH (08:58)
[2018-01-20] MEDS: PANTOPRAZOLE 20 MG TABLET (PROTONIX) PO SCH (08:58)
[2018-01-20 08:59] LABS: ANISOCYTOSIS SLIGHT; BAND NEUTROPHILS 2 %; BASOPHILS % (MANUAL) 0 %; EOSINOPHILS % (MANUAL) 1 %; LYMPHOCYTES % (MANUAL) 9 %; MONOCYTES % (MANUAL) 4 %; NEUTROPHILS % (MANUAL) 84 %
[2018-01-20] MEDS: ACETAMINOPHEN 325 MG TABLET PO PRN ×2 (09:05→17:41)
[2018-01-20] MEDS: NS IV 1000 ML 1,000 ML IV SCH (09:30)
--- NOTE | 2018-01-20 11:18 | Progress Note-Hospitalist ---
Subjective HPI/CC On Admission Date Seen by Provider: Jan 20, 2018 Time Seen by Provider: 11:13 The patient is a frail 87-year-old white female resident at [facility] who noted increased burning frequency and dysuria. No documented chills or fever were reported. She apparently has had urosepsis in the past and was transferred emergency room. Upon my arrival this morning she was quite somnolent was easily arousable that are very poor historian aggravated by a previous right-sided CVA with dense left-sided hemiparesis. She is nonambulatory and requires Era lift for transfers according to staff. She voices no current complaints other than fatigue. Subjective/Events-last exam Pt reports feeling better. Still having fevers though. No other complaints. Focused Exam Lactate Level 01/18/18 16:25: Lactic Acid Level 1.57 Objective Exam Vital Signs Vital Signs Date Time Temp Pulse Resp B/P (MAP) Pulse Ox O2 Delivery O2 Flow Rate FiO2 01/20/18 09:06 101.8 95 20 107/51 (69) 99 Room Air 01/20/18 08:38 2.00 Capillary Refill : Less Than 3 Seconds General Appearance: No Apparent Distress, Chronically ill Respiratory: Lungs Clear, No Respiratory Distress Cardiovascular: Regular Rate, Rhythm, No Murmur Genital/Rectal: Other (maher cath in place) Skin: Normal Color, Warm/Dry Results/Procedures Lab Laboratory Tests 01/20/18 07:44 01/20/18 08:28 Patient resulted labs reviewed. Assessment/Plan Assessment and Plan Assess & Plan/Chief Complaint A/P 1. Urinary tract infection- now meeting sepsis criteria with fever and leukocytosis- continue Rocephin per sensitivities 2. 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 Anemia likely multifactorial- reviewed labs back to 2014 and chronic 4. Mild thrombocytopenia without evidence for bleeding possibly due to sepsis, improved today Diagnosis/Problems Diagnosis/Problems (1) Urinary tract infection Status: Acute Qualifiers: Urinary tract infection type: acute cystitis Hematuria presence: without hematuria Qualified Codes: N30.00 - Acute cystitis without hematuria Clinical Quality Measures DVT/VTE Risk/Contraindication: Risk Factor Score Per Nursin RFS Level Per Nursing on Admit: 4+=Very High JOHN CHAPMAN MD Jan 20, 2018 11:18
[2018-01-20] MEDS: ENOXAPARIN 40 MG/0.4 ML (LOVENOX) SYR SC SCH (14:05)
[2018-01-20] MEDS ORDERED: NON-FORMULARY MEDICATION 1 EA EA (Acetaminophen (Tylenol Extra Strength) 1,000 MG) PO PRN (14:15)
[2018-01-20] MEDS ORDERED: NON-FORMULARY MEDICATION 1 EA EA (Hydrocodone/Acetaminophen (Norco 5-325 Tablet) 1 TAB) PO PRN (14:15)
[2018-01-20] MEDS ORDERED: NON-FORMULARY MEDICATION 1 EA EA (Polyethylene Glycol 3350 (Miralax) 17 GM) PO PRN (14:15)
[2018-01-20] MEDS ORDERED: SIMETH PO PRN (14:15)
[2018-01-20] MEDS ORDERED: AL HYDROX PO PRN (14:15)
[2018-01-20] MEDS ORDERED: [UNRECOGNIZED DRUG - OTHER] PO PRN (14:15)
[2018-01-20] MEDS ORDERED: MAG HYDROX PO PRN (14:15)
[2018-01-20] MEDS ORDERED: POLYETHYLENE GLYCOL 17 GM (MIRALAX) PACK PO PRN (15:00)
[2018-01-20] MEDS ORDERED: ANTACID SUSP 30 ML UDC (MYLANTA) PO PRN (15:00)
[2018-01-20] MEDS: cefTRIAXone 1 GM/NS 50 ML IVPB IV SCH ×2 (17:41)
[2018-01-20] MEDS: DOCUSATE SODIUM 100 MG (COLACE) CAP PO SCH (20:53)
[2018-01-21 00:08] VITALS: BP 100/50
[2018-01-21 04:04] VITALS: BP 97/52
[2018-01-21 06:39] LABS: BASOPHILS % (AUTO) 0 % (0-10); EOSINOPHILS # (AUTO) 0.1 10^3/uL (0.0-0.3); EOSINOPHILS % (AUTO) 0 % (0-10); HEMATOCRIT 25 % (35-52); HEMOGLOBIN 8.4 G/DL (11.5-16.0); LYMPHOCYTES # (AUTO) 1.4 X 10^3 (1.0-4.0); LYMPHOCYTES % (AUTO) 9 % (12-44); MEAN CORPUSCULAR HEMOGLOBIN 31 PG (25-34); MEAN CORPUSCULAR HGB CONC 34 G/DL (32-36); MEAN CORPUSCULAR VOLUME 93 FL (80-99); MEAN PLATELET VOLUME 10.8 FL (7.4-10.4); MONOCYTES # (AUTO) 1.4 X 10^3 (0.0-1.0); MONOCYTES % (AUTO) 9 % (0-12); NEUTROPHILS # (AUTO) 12.2 X 10^3 (1.8-7.8); NEUTROPHILS % (AUTO) 81 % (42-75); PLATELET COUNT 119 10^3/uL (130-400); RED BLOOD COUNT 2.69 10^6/uL (4.35-5.85); RED CELL DISTRIBUTION WIDTH 14.3 % (10.0-14.5); WHITE BLOOD COUNT 15.1 10^3/uL (4.3-11.0)
[2018-01-21 06:59] LABS: CALCIUM 7.7 MG/DL (8.5-10.1); CREATININE SERUM 1.08 MG/DL (0.60-1.30)
[2018-01-21 08:00] VITALS: BP 94/60
[2018-01-21] MEDS ORDERED: NON-FORMULARY MEDICATION 1 EA EA (Aspirin (Aspir 81) 81 MG) PO SCH (09:00)
[2018-01-21] MEDS: PANTOPRAZOLE 20 MG TABLET (PROTONIX) PO SCH (09:36)
[2018-01-21] MEDS: DOCUSATE SODIUM 100 MG (COLACE) CAP PO SCH (09:36)
[2018-01-21] MEDS: ASPIRIN E.C. 81 MG (ECOTRIN) TAB PO SCH (09:37)
[2018-01-21] MEDS: ACETAMINOPHEN 325 MG TABLET PO PRN (09:37)
[2018-01-21] MEDS ORDERED: CEPH-507 PO (10:42)
--- NOTE | 2018-01-21 10:50 | Discharge Inst-Simple/Standard ---
Discharge Inst-Standard Discharge Medications New, Converted or Re-Newed RX: Transmitted to Pharmacy Patient Instructions/Follow Up Plan of Care/Instructions/FU: Please continue to take your medications as written and follow up with your primary care provider Katy SALAS in the next week. Activity as Tolerated: Yes Discharge Diet: No Restrictions Return to The Hospital For: Worsening confusion, fever, if you feel you are getting worse. JOHN CHAPMAN MD Jan 21, 2018 10:50
--- NOTE | 2018-01-21 11:03 | Discharge Summary-Hospitalist ---
Diagnosis/Chief Complaint Date of Admission Jan 18, 2018 at 20:55 Date of Discharge Discharge Date: Jan 21, 2018 Admission Diagnosis A/P 1. Urinary tract infection 2. 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 Anemia likely multifactorial defer to PCP as I suspect this is long-standing Discharge Diagnosis (1) Urinary tract infection Status: Acute Discharge Summary Discharge Physical Exam Allergies: Coded Allergies: Penicillins (Unverified Allergy, Unknown, HIVES, 03/31/17) morphine (Unverified Allergy, Unknown, HIVES, 03/31/17) oxycodone (Verified Allergy, Unknown, 09/21/05) simvastatin (Verified Allergy, Unknown, ALLERGIC TO "STATINS", 09/18/05) sulfamethoxazole (Verified Adverse Reaction, Unknown, NAUSEA, DIARRHEA, , 03/31/17) trimethoprim (Verified Adverse Reaction, Unknown, NAUSEA, DIARRHEA, , 03/31) Uncoded Allergies: STATINS (Allergy, Unknown, INCREASED LIVER ENZYMES, 03/31/17) Vitals & I&Os Vital Signs Date Time Temp Pulse Resp B/P (MAP) Pulse Ox O2 Delivery O2 Flow Rate FiO2 01/21/18 08:00 99.9 62 16 94/60 (71) 96 Room Air 01/20/18 08:38 2.00 General Appearance: No Apparent Distress, Chronically ill Neurologic/Psychiatric: Alert, Oriented x3 Hospital Course Pt was admitted for UTI and progressed to severe sepsis. She responded well to Rocephin and her urine culture revealed e coli that was sensitive to cephalosporins. She was transitioned to Keflex for outpatient treatment. I called and discussed this hospital stay with her primary care provider Katy Breaux who will follow up with her as an outpatient. She was found to be very confused and hypotensive on arrival and thus most of her antihypertensives where held as well as her gabapentin. She had not worsening hypertension or pain and these were stopped at discharge. I did discuss with patient about her goals of care and she elected to be a DNR and requesting that her son Marko and her niece Claire be her decision maker if she is unable to make decisions for herself. Labs (last 24 hrs) Laboratory Tests 01/20/18 11:50: Lactic Acid Level 2.34*H 01/20/18 14:20: Lactic Acid Level 2.18*H 01/21/18 06:21: White Blood Count 15.1H, Red Blood Count 2.69L, Hemoglobin 8.4L, Hematocrit 25L , Mean Corpuscular Volume 93, Mean Corpuscular Hemoglobin 31, Mean Corpuscular Hemoglobin Concent 34, Red Cell Distribution Width 14.3, Platelet Count 119L, Mean Platelet Volume 10.8H, Neutrophils (%) (Auto) 81H, Lymphocytes (%) (Auto) 9L, Monocytes (%) (Auto) 9, Eosinophils (%) (Auto) 0, Basophils (%) (Auto) 0, Neutrophils # (Auto) 12.2H, Lymphocytes # (Auto) 1.4, Monocytes # (Auto) 1.4H, Eosinophils # (Auto) 0.1, Basophils # (Auto) 0.0, Sodium Level 130L, Potassium Level 3.0L, Chloride Level 105, Carbon Dioxide Level 17L, Anion Gap 8, Blood Urea Nitrogen 25H, Creatinine 1.08, Estimat Glomerular Filtration Rate 48, BUN/ Creatinine Ratio 23, Glucose Level 84, Calcium Level 7.7L Microbiology 01/18/18 Blood Culture - Preliminary, Resulted No growth 01/18/18 Urine Culture - Final, Complete Gram Pos Mixed Bacterial Ana María Escherichia coli Patient resulted labs reviewed. Pending Labs Laboratory Tests 01/21/18 06:21: White Blood Count 15.1, Red Blood Count 2.69, Hemoglobin 8.4, Hematocrit 25, Mean Corpuscular Volume 93, Mean Corpuscular Hemoglobin 31, Mean Corpuscular Hemoglobin Concent 34, Red Cell Distribution Width 14.3, Platelet Count 119, Mean Platelet Volume 10.8, Neutrophils (%) (Auto) 81, Lymphocytes (%) (Auto) 9, Monocytes (%) (Auto) 9, Eosinophils (%) (Auto) 0, Basophils (%) (Auto) 0, Neutrophils # (Auto) 12.2, Lymphocytes # (Auto) 1.4, Monocytes # (Auto) 1.4, Eosinophils # (Auto) 0.1, Basophils # (Auto) 0.0, Sodium Level 130, Potassium Level 3.0, Chloride Level 105, Carbon Dioxide Level 17, Anion Gap 8, Blood Urea Nitrogen 25, Creatinine 1.08, Estimat Glomerular Filtration Rate 48, BUN/ Creatinine Ratio 23, Glucose Level 84, Calcium Level 7.7 Discussion & Recommendations Discharge Planning: >30 minutes discharge planning Discharge Home Medications: Active Scripts Active Keflex (Cephalexin) 500 Mg Capsule 500 Mg PO BID Reported Tylenol Extra Strength (Acetaminophen) 500 Mg Tablet 1,000 Mg PO Q8H PRN Gabapentin 300 Mg Capsule 600 Mg PO HS TAKES 2 (300MG) CAPSULES Bystolic (Nebivolol HCl) 5 Mg Tablet 5 Mg PO DAILY [place] 5-325 Tablet (Hydrocodone/Acetaminophen) 1 Each Tablet 1 Tab PO Q6H PRN Miralax (Polyethylene Glycol 3350) 17 Gm Powd.pack 17 Gm PO HS PRN Colace (Docusate Sodium) 100 Mg Capsule 100 Mg PO BID Omeprazole 20 Mg Tablet.dr 20 Mg PO DAILY Potassium Chloride 20 Meq Tablet.er 20 Meq PO DAILY Furosemide 40 Mg Tablet 40 Mg PO DAILY Spironolactone 25 Mg Tablet 25 Mg PO DAILY Ferrous Sulfate 325 Mg Tablet 325 Mg PO TID Cely-Mox Antacid-Antig[place] Susp (Mag Hydrox/Al Hydrox/Simeth) 355 Ml Oral.susp 30 Ml PO Q4H PRN Gabapentin 300 Mg Capsule 300 Mg PO DAILY Aspir 81 (Aspirin) 81 Mg Tablet.dr 81 Mg PO DAILY Instructions to patient/family Please see electronic discharge instructions given to patient. Clinical Quality Measures DVT/VTE Risk/Contraindication: Risk Factor Score Per Nursin RFS Level Per Nursing on Admit: 4+=Very High Problem Qualifiers (1) Urinary tract infection: Urinary tract infection type: acute cystitis Hematuria presence: without hematuria Qualified Codes: N30.00 - Acute cystitis without hematuria JOHN CHAPMAN MD Jan 21, 2018 11:03
[2018-01-21 12:00] VITALS: BP 90/54
[2018-01-21] MEDS: ENOXAPARIN 40 MG/0.4 ML (LOVENOX) SYR SC SCH (13:54)
== END 2018-01-21 15:38 ==
LOC: EDUNIT# 15:59 → ER 16:00 → 4TH 18:00 → UNDOADMOB 18:00 → 4TH 20:55
PROVIDERS: ADMIT Internal Medicine; ATTEND Family Medicine
DX: A41.51 Sepsis due to Escherichia coli [E. coli] (principal); N30.00 Acute cystitis without hematuria; I69.354 Hemiplegia and hemiparesis following cerebral infarction affecting left non-dominant side; F03.90 Unspecified dementia, unspecified severity, without behavioral disturbance, psychotic disturbance, mood disturbance, and anxiety; E11.9 Type 2 diabetes mellitus without complications; D69.6 Thrombocytopenia, unspecified; D64.9 Anemia, unspecified; Z66 Do not resuscitate; Z88.0 Allergy status to penicillin; Z88.2 Allergy status to sulfonamides; Z88.5 Allergy status to narcotic agent; Z87.891 Personal history of nicotine dependence
CPT/HCPCS: 36415; 51702; 80048; 80053; 81000; 83605; 85007; 85025; 85027; 87040; 87077; 87088; 87186; 96361; 96365; 96366; G0378